=== PATIENT | male | born 1960 | race Two or more races ===

== ENCOUNTER 2016-07-19 23:43 | Inpatient (IN) | payer MEDICAID ==
[2016-07-20] MEDS ORDERED: HYDROmorphONE/DILAUDID 1 MG/ML SYR IVP ONE (00:03)
[2016-07-20] MEDS ORDERED: NS 1,000 ML IV ONE ×2 (00:03→17:57)
[2016-07-20] MEDS ORDERED: ONDANSETRON 4 MG/2 ML VIAL IVP ONE (00:03)
--- NOTE | 2016-07-20 00:13 | EDPHY ---
H & P Stated Complaint: chest/esophagus/epigastric pain x 5-6 days, seen at [facility] today Time Seen by Provider: 07/19/16 23:59 HPI/ROS: CHIEF COMPLAINT: Abdominal pain HISTORY OF PRESENT ILLNESS: The patient is a 55-year-old homeless alcoholic man who comes to the emergency department complaining of epigastric pain that radiates to his chest. He states that he has had this for about 5 days and been to other hospitals without diagnosis. He was seen earlier at [facility] today and diagnosed with intoxication. He denies fevers. He denies chest pain or shortness of breath. He denies any urinary symptoms. He has vomited 4 times today nonbloody. No diarrhea. REVIEW OF SYSTEMS: Constitutional: denies: chills, fever, recent illness, recent injury EENTM: denies: blurred vision, double vision, nose congestion Respiratory: denies: cough, shortness of breath Cardiac: See HPI Gastrointestinal/Abdominal: See HPI Genitourinary: denies: dysuria, frequency, hematuria, pain Musculoskeletal: denies: joint pain, muscle pain Skin: denies: lesions, rash, jaundice, bruising Neurological: denies: headache, numbness, paresthesia, tingling, dizziness, weakness Hematologic/Lymphatic: denies: blood clots, easy bleeding, easy bruising Immunologic/allergic: denies: HIV/AIDS, transplant EXAM: GENERAL: Well-appearing, well-nourished and in no acute distress. HEAD: Atraumatic, normocephalic. EYES: Pupils equal round and reactive to light, extraocular movements intact, sclera anicteric, conjunctiva are normal. ENT: TMs normal, nares patent, oropharynx clear without exudates. Moist mucous membranes. NECK: Normal range of motion, supple without lymphadenopathy or JVD. LUNGS: Breath sounds clear to auscultation bilaterally and equal. No wheezes rales or rhonchi. HEART: Regular rate and rhythm without murmurs, rubs or gallops. ABDOMEN: Soft, nontender, normoactive bowel sounds. No guarding, no rebound. No masses appreciated. BACK: No CVA tenderness, no spinal tenderness, step-offs or deformities EXTREMITIES: Normal range of motion, no pitting or edema. No clubbing or cyanosis. NEUROLOGICAL: Cranial nerves II through XII grossly intact. Normal speech, normal gait. 5/5 strength, normal movement in all extremities, normal sensation PSYCH: Normal mood, normal affect. SKIN: Warm, dry, normal turgor, no visible rashes or lesions. Source: Patient, EMS, Old records Exam Limitations: Intoxication - Personal History Current Tetanus/Diphtheria Vaccine: Yes Tetanus Vaccine Date: 2012 - Medical/Surgical History Hx Asthma: No Hx Chronic Respiratory Disease: No Hx Diabetes: No Hx Cardiac Disease: No Hx Renal Disease: No Hx Cirrhosis: Yes Hx Alcoholism: Yes Hx HIV/AIDS: No Hx Splenectomy or Spleen Trauma: No Other PMH: PMH: CAD, etoh abuse, cirrhosis, pancreatitis, gastritis. PSH: none - Family History Significant Family History: Hypertension - Social History Smoking Status: Heavy smoker Alcohol Use: Sober Drug Use: None Constitutional: Initial Vital Signs Heart Rate 106 H 07/19/16 23:58 Respiratory Rate 16 07/19/16 23:58 Blood Pressure 153/102 H 07/19/16 23:58 O2 Sat (%) 94 07/19/16 23:58 O2 Delivery Mode Room Air O2 (L/minute) 2 Allergies/Adverse Reactions: No Allergies Allergy (Unknown, Verified 12/25/15 01:53) Home Medications: Medication Instructions Recorded Acetaminophen [Tylenol 325mg (*)] 325 mg PO DAILY PRN 04/07/14 Ferrous Sulfate [Iron] 325 mg PO DAILY #0 capsule.sa 04/10/14 Pantoprazole Sodium [Protonix 40mg 40 mg PO BID #60 tab 04/10/14 (*)] Medical Decision Making - Diagnostics EKG Interpretation: An EKG obtained and was read and documented in trace view. Please see trace view for full reading and report. Sinus rhythm, no acute ischemic changes Imaging: Results: CT scan of the abdomen was obtained. The results of the study are lower esophageal cancer. The study was read by Dr. Ruiz. I viewed the images myself on the PACS system. ED Course/Re-evaluation: We discussed the patient's CT results with the warehouse worker 2nd shift. He was not aware of the cancer. He did have a biopsy 3 years ago that did not show cancers lesions at that time. I spoke with the patient about what this means and continued care. I do not have confident that he will be able to manage this himself. He is homeless and does not have a telephone. I do not think that he will be able to follow up in the outpatient setting for further workup and treatment. Offered admission to the hospital in the agrees with this. 2:50 a.m. I discussed the case with Dr. Zuleyka Sykes who will admit to the hospital service. Patient is currently tolerating p.o. fluids. Differential Diagnosis: Partial list of the Differential diagnosis considered include but were not limited to; esophagitis, peptic ulcer disease, pancreatitis, biliary disease , alcoholism, gastritis, and although unlikely based on the history and physical exam, I also considered pancreatitis, pneumonia, acute coronary disease. - Data Points Laboratory Results: Laboratory Results 07/20/16 00:27 07/20/16 01:20 07/20/16 07/20/16 01:20 00:27 WBC 4.75 10^3/uL (3.80-9.50) RBC 5.83 10^6/uL (4.40-6.38) Hgb 12.9 L g/dL (13.7-17.5) Hct 42.2 % (40.0-51.0) MCV 72.4 L fL (81.5-99.8) MCH 22.1 L pg (27.9-34.1) MCHC 30.6 L g/dL (32.4-36.7) RDW 23.6 H % (11.5-15.2) Plt Count 298 10^3/uL (150-400) MPV 10.0 fL (8.7-11.7) Neut % (Auto) 64.0 % (39.3-74.2) Lymph % (Auto) 24.6 % (15.0-45.0) [place] % (Auto) 6.5 % (4.5-13.0) Eos % (Auto) 3.2 % (0.6-7.6) Baso % (Auto) 1.5 % (0.3-1.7) Nucleat RBC Rel Count 0.0 % (0.0-0.2) Absolute Neuts (auto) 3.04 10^3/uL (1.70-6.50) Absolute Lymphs (auto) 1.17 10^3/uL (1.00-3.00) Absolute Monos (auto) 0.31 10^3/uL (0.30-0.80) Absolute Eos (auto) 0.15 10^3/uL (0.03-0.40) Absolute Basos (auto) 0.07 10^3/uL (0.02-0.10) Absolute Nucleated RBC 0.00 10^3/uL (0-0.01) Immature Gran % 0.2 % (0.0-1.1) Immature Gran # 0.01 10^3/uL (0.00-0.10) Platelet Estimate ADEQUATE (ADEQ) Large Platelets PRESENT H Hypochromasia 1+ H Microcytic Cells 1+ H Turbidity TNP Sodium 152 H mEq/L TNP (134-144) Potassium 3.6 mEq/L TNP (3.5-5.2) Chloride 111 H mEq/L TNP (97-110) Carbon Dioxide 27 mEq/l TNP (22-31) Anion Gap 14 mEq/L TNP (8-16) BUN 4 L mg/dL TNP (7-23) Creatinine 0.5 L mg/dL TNP (0.7-1.3) Estimated GFR > 60 TNP Glucose 101 H mg/dL TNP (70-100) Calcium 7.3 L mg/dL TNP (8.5-10.4) Total Bilirubin 0.2 mg/dL TNP (0.1-1.4) Conjugated Bilirubin 0.1 mg/dL TNP (0.0-0.5) Unconjugated Bilirubin 0.1 mg/dL TNP (0.0-1.1) AST 33 IU/L TNP (17-59) ALT 26 IU/L TNP (21-72) Alkaline Phosphatase 86 IU/L TNP (38-126) Total Protein 6.2 L g/dL TNP (6.3-8.2) Albumin 3.2 L g/dL TNP (3.5-5.0) Lipase 345.0 H IU/L TNP (23-300) Specimen Hemolysis TNP Medications Given: Discontinued Medications Hydromorphone HCl (Dilaudid) 1 mg IVP EDNOW ONE Stop: 07/20/16 00:04 Last Admin: 07/20/16 00:30 Dose: 1 mg Sodium Chloride (Ns) 1,000 mls @ 0 mls/hr IV ONCE ONE PRN Reason: Wide Open Stop: 07/20/16 00:04 Last Admin: 07/20/16 00:29 Dose: 1,000 mls Famotidine/Sodium Chloride (Pepcid 20 Mg (Premix)) 50 mls @ 200 mls/hr IV EDNOW ONE Stop: 07/20/16 03:47 Last Admin: 07/20/16 03:41 Dose: 50 mls Ondansetron HCl (Zofran) 4 mg IVP EDNOW ONE Stop: 07/20/16 00:04 Last Admin: 07/20/16 00:30 Dose: 4 mg Ranitidine HCl (Zantac) 50 mg IVP EDNOW ONE Stop: 07/20/16 02:48 Last Admin: 07/20/16 03:22 Dose: Not Given Departure - Departure Disposition: [facility] Acute Clinical Impression: Esophageal cancer Qualifiers: Malignant neoplasm of esophagus location: lower third Qualifier Code: (C15.5) Malignant neoplasm of lower third of esophagus Condition: Fair
[2016-07-20 00:36] LABS: % IMMATURE GRANULYOCYTES 0.2 % (0.0-1.1); ABSOLUTE IMMATURE GRANULOCYTES 0.01 10^3/uL (0.00-0.10); ADD DIFF? NO; ADD MORPH? YES; ADD SCAN? NO; ATYPICAL LYMPHOCYTE FLAG 0 (0-99); FRAGMENT RBC FLAG 40 (0-99); HEMATOCRIT 42.2 % (40.0-51.0); HEMOGLOBIN 12.9 g/dL (13.7-17.5); LEFT SHIFT FLG 0 (0-99); LIPEMIA HEMOLYSIS FLAG 80 (0-99); MEAN CELL HEMOGLOBIN 22.1 pg (27.9-34.1); MEAN CELL HEMOGLOBIN CONCENTR. 30.6 g/dL (32.4-36.7); MEAN CELL VOLUME 72.4 fL (81.5-99.8); PLATELET CLUMPS FLAG 40 (0-99); PLATELET COUNT 298 10^3/uL (150-400); RED BLOOD CELL COUNT 5.83 10^6/uL (4.40-6.38)
[2016-07-20] MEDS ORDERED: IOPAMIDOL (ISOVUE-300) 100 ML BTL IV ONE (00:42)
[2016-07-20 00:43] LABS: RED CELL DISTRIBUTION WIDTH 23.6 % (11.5-15.2)
[2016-07-20 01:11] LABS: PLATELET ESTIMATE ADEQUATE (ADEQ)
[2016-07-20 01:13] LABS: HYPOCHROMIA 1+; LARGE PLATELETS PRESENT; MICROCYTES 1+
[2016-07-20 01:43] LABS: ALANINE AMINOTRANSFERASE 26 IU/L (21-72); ALBUMIN 3.2 g/dL (3.5-5.0); ALKALINE PHOSPHATASE 86 IU/L (38-126); ANION GAP 14 mEq/L (8-16); ASPARTATE AMINOTRANSFERASE 33 IU/L (17-59); BILIRUBIN,TOTAL 0.2 mg/dL (0.1-1.4); BILIRUBIN-CONJUGATED 0.1 mg/dL (0.0-0.5); BILIRUBIN-UNCONJUGATED 0.1 mg/dL (0.0-1.1); CALCIUM 7.3 mg/dL (8.5-10.4); CARBON DIOXIDE 27 mEq/l (22-31); CHLORIDE 111 mEq/L (97-110); CREATININE 0.5 mg/dL (0.7-1.3); GLOMERULAR FILTRATION RATE > 60; GLUCOSE 101 mg/dL (70-100); POTASSIUM 3.6 mEq/L (3.5-5.2); SODIUM 152 mEq/L (134-144); TOTAL PROTEIN 6.2 g/dL (6.3-8.2)
--- NOTE | 2016-07-20 02:27 | CPEKG ---
Heart Rate: 90 RR Interval: 667 P-R Interval: 148 QRSD Interval: 76 QT Interval: 364 QTC Interval: 446 P [place]: 51 QRS [place]: 20 T Wave [place]: 44 EKG Severity - NORMAL ECG - EKG Impression: SINUS RHYTHM Electronically Signed By: Cornell Zhao 20-Jul-2016 02:28:04
[2016-07-20] MEDS ORDERED: RANITIDINE 50 MG/2 ML VIAL IVP ONE (02:47)
[2016-07-20] MEDS ORDERED: FAMOTIDINE 20 MG/NACL/50 ML BAG IV ONE (03:33)
[2016-07-20] MEDS ORDERED: FAMOTIDINE 20 MG/NACL 50 ML IV ONE (03:33)
[2016-07-20] MEDS ORDERED: D5W 1,000 ML IV SCH (03:45)
[2016-07-20] MEDS ORDERED: LORazepam 1 MG TAB PO PRN (03:45)
[2016-07-20] MEDS ORDERED: ONDANSETRON 4 MG/2 ML VIAL IVP PRN (03:45)
[2016-07-20] MEDS ORDERED: LORazepam 2 MG/ML INJ IVP PRN (03:45)
[2016-07-20] MEDS ORDERED: THIAMINE HCL 500 MG in NS 100 ML IV ONE (03:45)
--- NOTE | 2016-07-20 04:15 | PDGENHP ---
History and Physical - Chief Complaint epigastric pain - History of Present Illness 55 yo luxembourgish speaking male with h/o alcohol dependence, cirrhosis, hypertension and CAD presents to ED with epigastric pain x4-5 days. This is associated with vomiting. He denies hematemesis, hematochezia or melanotic stools. He drinks a pint a day of whiskey. He states his last drink was 2-3 days ago, but per chart review, he was apparently acutely intoxicated at [facility] earlier today. He denies a known h/o seizure, but describes passing out on the street some time ago. He denies fevers or chills. He is able to tolerate po, but has had post-prandial vomiting over past several days. He reports normal bowel movements. In the ED, CT abdomen was done and findings are suspicious for esophageal malignancy. He is homeless and is a poor candidate for outpatient follow up, thus is admitted for further management. History Information - Allergies/Home Medication List Allergies/Adverse Reactions: No Allergies Allergy (Unknown, Verified 12/25/15 01:53) Home Medications: Acetaminophen [Tylenol 325mg (*)] 325 mg PO DAILY PRN 04/07/14 [Last Taken Unknown] I have personally reviewed and updated: family history, medical history, social history, surgical history - Past Medical History coronary artery disease, hypertension Additional medical history: alcohol abuse, cirrhosis - Surgical History Reports: no pertinent surgical hx - Family History Positive for: CAD - Social History Smoking Status: Heavy smoker Alcohol Use: Heavy Drug Use: None (Homeless, drinks a pint of whiskey daily, +tobacco abuse, denies illicit drugs) Review of Systems ROS: 10pt was reviewed & negative except for what was stated in HPI & below Physical Exam Temp Pulse Resp BP Pulse Ox 36.5 C 106 H 20 170/96 H 96 07/20/16 04:01 07/20/16 04:01 07/20/16 04:01 07/20/16 04:04 07/20/16 04:04 O2 (L/minute) 2 Constitutional: no apparent distress Eyes: PERRL Ears, Nose, Mouth, Throat: moist mucous membranes Cardiovascular: regular rate and rhythym Respiratory: no respiratory distress, clear to auscultation Gastrointestinal: normoactive bowel sounds, other (+epigastric tenderness, no r/ r/g) Skin: warm Musculoskeletal: full muscle strength Neurologic: AAOx3 Psychiatric: interacting appropriately Lab Data & Imaging Review 07/20/16 00:27 07/20/16 01:20 WBC 4.75 10^3/uL (3.80-9.50) 07/20/16 00: RBC 5.83 10^6/uL (4.40-6.38) 07/20/16 00: Hgb 12.9 g/dL (13.7-17.5) L 07/20/16: Hct 42.2 % (40.0-51.0) 07/20/16 00: MCV 72.4 fL (81.5-99.8) L 07/20/16 00: MCH 22.1 pg (27.9-34.1) L 07/20/16 00: MCHC 30.6 g/dL (32.4-36.7) L 07/20/16 00: RDW 23.6 % (11.5-15.2) H 07/20/16 00: Plt Count 298 10^3/uL (150-400) 07/20/16 00: MPV 10.0 fL (8.7-11.7) 07/20/16 00: Neut % (Auto) 64.0 % (39.3-74.2) 07/20/16: Lymph % (Auto) 24.6 % (15.0-45.0) 07/20/16 00: [place] % (Auto) 6.5 % (4.5-13.0) 07/20/16: Eos % (Auto) 3.2 % (0.6-7.6) 07/20/16 00: Baso % (Auto) 1.5 % (0.3-1.7) 07/20/16 00: Nucleat RBC Rel Count 0.0 % (0.0-0.2) 07/20/16 00: Absolute Neuts (auto) 3.04 10^3/uL (1.70-6.50) 07/20/16 00: Absolute Lymphs (auto) 1.17 10^3/uL (1.00-3.00) 07/20/16 00: Absolute Monos (auto) 0.31 10^3/uL (0.30-0.80) 07/20/16 00:27 Absolute Eos (auto) 0.15 10^3/uL (0.03-0.40) 07/20/16 00:27 Absolute Basos (auto) 0.07 10^3/uL (0.02-0.10) 07/20/16 00:27 Absolute Nucleated RBC 0.00 10^3/uL (0-0.01) 07/20/16 00:27 Immature Gran % 0.2 % (0.0-1.1) 07/20/16 00:27 Immature Gran # 0.01 10^3/uL (0.00-0.10) 07/20/16 00:27 Platelet Estimate ADEQUATE (ADEQ) 07/20/16 00:27 Large Platelets PRESENT H 07/20/16 00:27 Hypochromasia 1+ H 07/20/16 00:27 Microcytic Cells 1+ H 07/20/16 00:27 Turbidity TNP 07/20/16 00:27 Sodium 152 mEq/L (134-144) H 07/20/16 01:20 Potassium 3.6 mEq/L (3.5-5.2) 07/20/16 01:20 Chloride 111 mEq/L (97-110) H 07/20/16 01:20 Carbon Dioxide 27 mEq/l (22-31) 07/20/16 01:20 Anion Gap 14 mEq/L (8-16) 07/20/16 01:20 BUN 4 mg/dL (7-23) L 07/20/16 01:20 Creatinine 0.5 mg/dL (0.7-1.3) L 07/20/16 01:20 Estimated GFR > 60 07/20/16 01:20 Glucose 101 mg/dL (70-100) H 07/20/16 01:20 Calcium 7.3 mg/dL (8.5-10.4) L 07/20/16 01:20 Total Bilirubin 0.2 mg/dL (0.1-1.4) 07/20/16 01:20 Conjugated Bilirubin 0.1 mg/dL (0.0-0.5) 07/20/16 01:20 Unconjugated Bilirubin 0.1 mg/dL (0.0-1.1) 07/20/16 01:20 AST 33 IU/L (17-59) 07/20/16 01:20 ALT 26 IU/L (21-72) 07/20/16 01:20 Alkaline Phosphatase 86 IU/L (38-126) 07/20/16 01:20 Total Protein 6.2 g/dL (6.3-8.2) L 07/20/16 01:20 Albumin 3.2 g/dL (3.5-5.0) L 07/20/16 01:20 Lipase 345.0 IU/L (23-300) H 07/20/16 01:20 Specimen Hemolysis TNP 07/20/16 00:27 Assessment & Plan Assessment: Epigastric pain - CT imaging highly suspicious for esophageal malignancy. Will keep NPO for now, consult GI in am for possible EGD / biopsy. Will give IV PPI , pain control, anti-emetics, supportive care. Speech consult for swallow eval. May also need oncology consult. Hypernatremia - free water deficit is 4L. Will give D5W at 100 / hr and follow q4h bmp to ensure not correcting too rapidly. Alcohol dependence - unclear if he has a h/o seizures. Will start CIWA protocol , seizure precautions, symptom triggered bzd dosing. Check mag, phos, replace vits. Cirrhosis - per pt report. CT notes fatty liver. No significant ascites. Nl LFT's. Will request records from OSH for further clarification. CAD - per chart hx. CP free at this time. Hypertension - will start metoprolol given CAD hx Tobacco abuse - cessation encouraged Homelessness - will make outpt f/u difficult to coordinate. Case management consult requested. DVT PPLX - Lovenox Full code Dispo - will likely require >48 hrs hospitalization for further workup and management of suspected GI malignancy
[2016-07-20] MEDS ORDERED: hydrALAZINE 20 MG/ML VIAL IVP PRN (04:28)
[2016-07-20] MEDS: ACETAMINOPHEN 325 MG TAB PO PRN (04:35)
[2016-07-20] MEDS: METOPROLOL TARTRATE 25 MG TAB PO SCH ×3 (04:36→21:44)
[2016-07-20 05:50] LABS: % IMMATURE GRANULYOCYTES 0.4 % (0.0-1.1); ABSOLUTE IMMATURE GRANULOCYTES 0.02 10^3/uL (0.00-0.10); ADD DIFF? NO; ADD MORPH? YES; ADD SCAN? NO; ATYPICAL LYMPHOCYTE FLAG 20 (0-99); FRAGMENT RBC FLAG 20 (0-99); HEMOGLOBIN 10.1 g/dL (13.7-17.5); LEFT SHIFT FLG 0 (0-99); LIPEMIA HEMOLYSIS FLAG 80 (0-99); MEAN CELL HEMOGLOBIN 22.5 pg (27.9-34.1); MEAN CELL HEMOGLOBIN CONCENTR. 30.6 g/dL (32.4-36.7); MEAN CELL VOLUME 73.5 fL (81.5-99.8); MEAN PLATELET VOLUME 9.6 fL (8.7-11.7); PLATELET CLUMPS FLAG 0 (0-99); PLATELET COUNT 224 10^3/uL (150-400); RED BLOOD CELL COUNT 4.49 10^6/uL (4.40-6.38); RED CELL DISTRIBUTION WIDTH 22.6 % (11.5-15.2)
[2016-07-20 06:01] LABS: INR 1.22 (0.83-1.16); PROTIME(PATIENT) 15.4 SEC (12.0-15.0)
[2016-07-20 06:06] LABS: HYPOCHROMIA 1+; MICROCYTES 1+; PLATELET ESTIMATE ADEQUATE (ADEQ)
[2016-07-20 06:11] LABS: ANION GAP 13 mEq/L (8-16); CALCIUM 7.1 mg/dL (8.5-10.4); CARBON DIOXIDE 24 mEq/l (22-31); CHLORIDE 111 mEq/L (97-110); CREATININE 0.5 mg/dL (0.7-1.3); ETHANOL SERUM 230 mg/dL (0-10); GLOMERULAR FILTRATION RATE > 60; GLUCOSE 98 mg/dL (70-100); MAGNESIUM 1.6 mg/dL (1.6-2.3); POTASSIUM 3.7 mEq/L (3.5-5.2); SODIUM 148 mEq/L (134-144)
[2016-07-20] MEDS ORDERED: FLU VACC QS 2016-17(3-64YR)/PF 0.5 ML SYR (FLUARIX QUAD) IM ONE (08:25)
[2016-07-20] MEDS: PANTOPRAZOLE SODIUM 40 MG in NS 100 ML IV SCH ×2 (08:26→21:44)
[2016-07-20 11:24] LABS: ANION GAP 11 mEq/L (8-16); CALCIUM 7.2 mg/dL (8.5-10.4); CARBON DIOXIDE 26 mEq/l (22-31); CHLORIDE 109 mEq/L (97-110); CREATININE 0.5 mg/dL (0.7-1.3); GLOMERULAR FILTRATION RATE > 60; GLUCOSE 84 mg/dL (70-100); POTASSIUM 3.7 mEq/L (3.5-5.2); SODIUM 146 mEq/L (134-144)
[2016-07-20] MEDS: HYDROmorphONE/DILAUDID 1 MG/ML SYR IVP PRN (11:28)
--- NOTE | 2016-07-20 11:48 | CT ---
CT Abdomen and Pelvis With Contrast History: 55-year-old with epigastric pain, EtOH. Comparison: CT abdomen and pelvis October 06, 2015. Technique: Axial contrast-enhanced images were obtained through the abdomen and pelvis following the uneventful administration of 90 mL Isovue-300 intravenous contrast. Imaging through the upper abdomen was repeated due to motion. Creatinine is 0.5. Dose reduction techniques were utilized. Findings: Abdomen: A 3 mm noncalcified right middle lobe nodule (series 6, image 40) and a 3 mm lingular nodule (image 24) are unchanged. Ectasia of the ascending aorta is noted. Coronary artery atherosclerosis i s present. Diffuse fatty infiltration is present in the liver. The gallbladder, spleen, pancreas, adrenals and k idneys are normal. Extensive irregular thickening of the distal esophagus is slightly increased since the comparison. Th ere is trace fluid adjacent to the thickened esophagus. Scattered mildly prominent paraesophageal lym ph nodes are new/increased since the comparison. A moderate hiatal hernia is present. Moderate stool is present in the colon. The colon and small bowel are normal caliber. The appendix is normal. There is no free intraperitoneal air or fluid. Moderate atherosclerosis is present in a normal caliber aorta. The IVC, hepatic, portal, splenic, and superior mesenteric veins are patent. Grade 1 spondylolytic spondylosis of L5 on S1 is stable. No aggressive osseous lesions are present. Pelvis: The bladder is distended but otherwise normal. The prostate is normal size. No pathologically enlarged lymph nodes are identified. Mild atherosclerosis is present. No aggressive osseous lesions are present. Impression: 1. Increased irregular thickening of the distal esophagus highly suspicious for malignancy with adjac ent subcentimeter nodes that could be related to regional metastases. 2. Trace fluid adjacent to the distal esophagus, with no free air, of uncertain clinical significance . 3. Fatty liver. 4. Constipation. 5. Additional findings as above. Findings discussed with Dr. Cornell Zhao 07/20/2016 at 0230 hours. The preliminary and final reports were concordant.
[2016-07-20 12:15] LABS: COLOR YELLOW; LEUKOCYTE ESTERASE,URINE NEGATIVE (NEGATIVE); NITRITE,URINE NEGATIVE (NEGATIVE)
[2016-07-20 12:25] LABS: BACTERIA NONE SEEN /hpf (NONE SEEN); MUCUS NONE SEEN /lpf (NONE-1+)
[2016-07-20] MEDS ORDERED: IPRATROPIUM/ALBUTEROL 3 ML DEYVIAL ONE (13:10)
[2016-07-20] MEDS ORDERED: fentaNYL 100 MCG/2 ML INJ ONE (13:19)
[2016-07-20] MEDS ORDERED: PROPOFOL/EMULSION 500 MG/50 ML BOTTLE IV ONE (13:19)
--- NOTE | 2016-07-20 13:27 | GCON ---
[f rep st] CONSULTATION DATE OF CONSULTATION: 07/20/2016 CHIEF COMPLAINT: Abdominal pain. HISTORY OF PRESENT ILLNESS: I am asked to see this patient in consultation by Dr. Sykes for a chief complaint of abdominal pain and an abnormal CT scan. Patient is a 55-year-old, [place]bourgish speaking only. History is obtained with an riding instructor and to the chart. Patient states he has had 4-5 days of epigastric abdominal pain associated with a couple episodes of vomiting, but notes there was no blood in his stools, no melena, or black coffee-grounds in his vomit, but because of abdominal pain a CT scan was obtained that shows thickening of the distal esophagus concerning for a possible tumor. The patient has a long history of alcohol, for which he drinks daily. He states he has never had a history of liver disease or hepatitis. He does take a daily aspirin when he is able to obtain it. He states he has had an upper endoscopy a few years back, he believes because of bleeding, but states that he is not sure what the source was, nor aware of ever having a history of varices or ulcers. Recently he has had no red blood stools or melenic stools, but it is unclear from his history. The patient states his epigastric pain is better this morning, and no vomiting since yesterday. ALLERGIES: No known allergies. CURRENT MEDICATIONS: Tylenol and aspirin. PAST MEDICAL HISTORY: Significant for alcohol abuse. The patient is a poor historian, but per the chart there is a history of hypertension, coronary artery disease, and alcoholic liver disease. SOCIAL HISTORY: Alcohol abuse. FAMILY HISTORY: Notable for coronary artery disease. REVIEW OF SYSTEMS: Review of 10 systems including general, psych, HEENT, cardiovascular, pulmonary, renal, hematologic, musculoskeletal, derm and neurologic are discussed and otherwise negative, but again patient is a poor historian, except for above. PHYSICAL EXAM: VITAL SIGNS: Afebrile at 37.1, blood pressure 134/86, pulse 84. HEENT: PERRLA, EOMI. Nose clear. Oropharynx is normal. NECK: Supple without lymphadenopathy, no thyromegaly. CARDIAC: Regular rate and rhythm, S1 and S2 normal, no murmur detected. PMI normal in location. CHEST: Clear to auscultation bilaterally, normal chest excursion. ABDOMEN: Soft, mild hepatomegaly, no obvious ascites. Soft, mild tenderness to palpation in the epigastric area. There is no obvious spider angiomata. EXTREMITIES: Normal. NEUROLOGIC: Grossly nonfocal, without obvious asterixis. LABORATORY DATA: Shows a BUN and creatinine of 4 and 0.5, ProTime is 15.4 with an INR of 1.22. White count is 5, hematocrit 33, platelets 224. AST 26, ALT 33 , total bilirubin 0.2. Lipase 345, albumin 3.2. CT scan of the abdomen shows irregular thickening of the distal esophagus, highly suspicious for malignancy with adjacent subcentimeter nodes that could be related to regional metastasis, trace adjacent fluid in the distal esophagus but no free air, fatty liver, constipation. I reviewed the CT scan with the radiologist, who could not definitively identify enlarged portal vein or evidence of varices. ASSESSMENT: 1. Epigastric abdominal pain. 2. Abnormal CT scan of the esophagus, concerning for possible mass versus esophagitis. Radiologic appearance is not suggestive of varices. 3. Alcoholic liver disease, although without elevated liver function tests or ProTime at this time, or clinical evidence of underlying cirrhosis. PLAN: Given pain and abnormal CT scan findings, would recommend upper endoscopy for evaluation and careful biopsy, providing no visual evidence of varices as guided by endoscopic findings. Recommend alcohol cessation and monitoring for withdrawal. /[id number]/MODL MTDD
--- NOTE | 2016-07-20 13:36 | SUROPNOTE ---
[facility] Operative Report - Surgery EGD with MAC Full note dictated Findings severe grade D esophagitis GE junction stricture with inflammatory appearance, biopsied Stomach with portal gastropathy Kyle normal Plan: PPI BID Advance diet to soft as tolerated Await path If no malignancy then recommend repeat EGD in 8 weeks post therapy for dilation and r/o underlying Carrero's Call with questions
[2016-07-20] MEDS ORDERED: HYDROmorphONE/DILAUDID 1 MG/ML SYR ONE (13:56)
[2016-07-20] MEDS ORDERED: IPRATROPIUM/ALBUTEROL 3 ML DEYVIAL IH ONE (14:00)
--- NOTE | 2016-07-20 14:18 | GPN ---
[f rep st] PROCEDURE NOTE DATE OF PROCEDURE: 07/20/2016 PROCEDURE PERFORMED: Upper endoscopy with biopsy. INDICATIONS: Epigastric pain. Abnormal CT scan showing possible mass in distal esophagus. Referred for upper endoscopy. Prior to procedure, exam was performed, including auscultation of the heart lungs, within normal limi ts. Patient's mental status was appropriate. Procedure was explained via the machine lead burner, including the risks of bleeding, perforation, or sedation. He gave an informed consent. FINDINGS: Patient was placed in the left lateral decubitus position. Medicines given by slow IV tit ration per the anesthesiologist. Instrument was inserted through the bite block in the esophagus, wh ich was remarkable for severe grade D erosive esophagitis from the GE junction to the midesophagus. At the GE junction, there was a stricture identified that was inflammatory in appearance. No obvious varices were seen in this area. Scope could pass through this area into a small hiatal hernia and t hen into the stomach, remarkable for a diffuse portal gastropathy, more prominent proximally. No ulc ers. Scope was then passed. The duodenal was normal. The scope was then returned back to the area of the stricture, which was biopsied with minimal oozing. Scope was removed from the patient, who to lerated the procedure well. Time of the procedure was approximately 10 minutes. ASSESSMENT: 1. Severe grade D erosive esophagitis to the distal third of the esophagus. 2. 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 This was biopsied, although suspect that it will be predominantly inflammatory. 3. Stomach with portal gastropathy. 4. Normal duodenum. PLAN: 1. Recommend proton pump inhibitor twice daily for at least the next 8-12 weeks. 2. May advance diet, although patient to chew foods carefully. 3. Will await path results. If no evidence of malignancy, then I would recommend repeat upper endos copy in 8 weeks post therapy to assess for underlying Carrero's and potential stricture dilation. Thank you for this consult. /[id number]/MODL
[2016-07-20] MEDS: ENOXAPARIN 40 MG/0.4 ML SYR SC SCH (15:29)
[2016-07-20] MEDS ORDERED: 1/2 NS 1,000 ML IV SCH (15:30)
--- NOTE | 2016-07-20 15:33 | HOSPPROG ---
Hospitalist Progress Note Assessment/Plan: #ETOH WD-ON CIWA -WILL SCHEDULE ATIVAN WELL #EPIGASTRIC PAIN, GASTRITIS, ESOPHAGITIS, CT CONCERNING FOR ESOPHAGEAL MALIGNANCY -PPI BID -WILL NEED 8-12 PPI BID -ENDOSCOPY C/W ESOPHAGEAL INFLAMMATION, BIOPSIES OBTAINED -F/U BIOPSIES, IF NO MALIGNANCY, THEN REPEAT ENDOSCOPY IN 8 WEEKS #HYPERNATREMIA: IMPROVING. CHANGE TO 1/2 NS #CIRRHOSIS, PER HX. NO EVIDENCE OF IMAGING OR LABS. NO COAGULOPATHY #HTN: ON METOPROLOL. WORSE 2 TO ETOH WD #CAD: ON METOPROLOL #DVT PROPH: LOVENOX (HOLD TODAY), SCD'S Full code Dispo - INPATIENT S: active ETOH WD. No confusion. Still with some abd pain. No n/v. O: VSS NAD TREMULOUS AAOX3 RRR CTA B S/NT/ND NO EDEMA LABS: REVIEWED Objective: Vital Signs Temp Pulse Resp BP Pulse Ox 36.9 C 72 12 141/95 H 93 07/20/16 14:16 07/20/16 14:35 07/20/16 14:35 07/20/16 14:16 07/20/16 14:35 Laboratory Results 07/20/16 05:40 07/19/16 07/20/16 07/21/16 05:59 05:59 05:59 Intake Total 1050 Balance 1050 PT 15.4 SEC (12.0-15.0) H 07/20/16 05:40 INR 1.22 (0.83-1.16) H 07/20/16 05:40 ICD10 Worksheet Patient Problems: Problems Problem Status Diagnosed Esophageal cancer Acute Alcohol withdrawal delirium Active Alcohol abuse Acute Alcohol withdrawal Acute Headache Acute
[2016-07-20] MEDS: LORazepam 2 MG/ML INJ IVP SCH ×3 (15:41→21:44)
[2016-07-20 15:53] LABS: ANION GAP 12 mEq/L (8-16); CALCIUM 7.9 mg/dL (8.5-10.4); CARBON DIOXIDE 26 mEq/l (22-31); CHLORIDE 106 mEq/L (97-110); CREATININE 0.6 mg/dL (0.7-1.3); GLOMERULAR FILTRATION RATE > 60; GLUCOSE 126 mg/dL (70-100); POTASSIUM 4.1 mEq/L (3.5-5.2); SODIUM 144 mEq/L (134-144)
--- NOTE | 2016-07-20 18:08 | CPEKG ---
Heart Rate: 119 RR Interval: 504 P-R Interval: 124 QRSD Interval: 76 QT Interval: 312 QTC Interval: 439 P [place]: 44 QRS [place]: 21 T Wave [place]: 37 EKG Severity - OTHERWISE NORMAL ECG - EKG Impression: SINUS TACHYCARDIA EKG Impression: INFERIOR Q WAVES NOTED BASELINE ARTIFACT IS PRESENT IN II AND III Electronically Signed By: Adriel Kay 20-Jul-2016 19:16:21
[2016-07-20] MEDS: NS 1,000 ML IV SCH ×2 (18:21→21:44)
[2016-07-20 18:39] LABS: % IMMATURE GRANULYOCYTES 0.6 % (0.0-1.1); ABSOLUTE IMMATURE GRANULOCYTES 0.03 10^3/uL (0.00-0.10); ADD DIFF? NO; ADD MORPH? YES; ADD SCAN? NO; ATYPICAL LYMPHOCYTE FLAG 20 (0-99); FRAGMENT RBC FLAG 20 (0-99); HEMATOCRIT 31.3 % (40.0-51.0); HEMOGLOBIN 9.8 g/dL (13.7-17.5); LEFT SHIFT FLG 0 (0-99); LIPEMIA HEMOLYSIS FLAG 80 (0-99); MEAN CELL HEMOGLOBIN 22.7 pg (27.9-34.1); MEAN CELL HEMOGLOBIN CONCENTR. 31.3 g/dL (32.4-36.7); MEAN CELL VOLUME 72.6 fL (81.5-99.8); MEAN PLATELET VOLUME 10.2 fL (8.7-11.7); PLATELET CLUMPS FLAG 10 (0-99); PLATELET COUNT 196 10^3/uL (150-400); RED BLOOD CELL COUNT 4.31 10^6/uL (4.40-6.38)
[2016-07-20 18:44] LABS: RED CELL DISTRIBUTION WIDTH 22.3 % (11.5-15.2)
[2016-07-20 18:54] LABS: ANION GAP 11 mEq/L (8-16); CALCIUM 7.8 mg/dL (8.5-10.4); CARBON DIOXIDE 25 mEq/l (22-31); CHLORIDE 102 mEq/L (97-110); CREATININE 0.6 mg/dL (0.7-1.3); GLOMERULAR FILTRATION RATE > 60; GLUCOSE 136 mg/dL (70-100); POTASSIUM 3.8 mEq/L (3.5-5.2); SODIUM 138 mEq/L (134-144)
[2016-07-20 19:05] LABS: TROPONIN I < 0.012 ng/mL (0-0.034)
[2016-07-20 19:07] LABS: ELLIPTOCYTES 1+; HYPOCHROMIA 2+; MICROCYTES 2+; PLATELET ESTIMATE ADEQUATE (ADEQ)
[2016-07-21] MEDS: LORazepam 2 MG/ML INJ IVP SCH ×5 (01:37→21:32)
[2016-07-21 05:25] LABS: % IMMATURE GRANULYOCYTES 0.5 % (0.0-1.1); ABSOLUTE IMMATURE GRANULOCYTES 0.03 10^3/uL (0.00-0.10); ADD DIFF? NO; ADD MORPH? YES; ADD SCAN? NO; ATYPICAL LYMPHOCYTE FLAG 10 (0-99); FRAGMENT RBC FLAG 20 (0-99); HEMATOCRIT 30.4 % (40.0-51.0); HEMOGLOBIN 9.5 g/dL (13.7-17.5); LEFT SHIFT FLG 0 (0-99); LIPEMIA HEMOLYSIS FLAG 80 (0-99); MEAN CELL HEMOGLOBIN 22.8 pg (27.9-34.1); MEAN CELL HEMOGLOBIN CONCENTR. 31.3 g/dL (32.4-36.7); MEAN CELL VOLUME 73.1 fL (81.5-99.8); PLATELET CLUMPS FLAG 0 (0-99); PLATELET COUNT 163 10^3/uL (150-400); RED BLOOD CELL COUNT 4.16 10^6/uL (4.40-6.38)
[2016-07-21 05:43] LABS: RED CELL DISTRIBUTION WIDTH 22.3 % (11.5-15.2)
[2016-07-21 06:51] LABS: ELLIPTOCYTES 1+; HYPOCHROMIA 1+; MICROCYTES 1+; PLATELET ESTIMATE ADEQUATE (ADEQ)
[2016-07-21 06:53] LABS: LARGE PLATELETS PRESENT
[2016-07-21] MEDS: PANTOPRAZOLE SODIUM 40 MG in NS 100 ML IV SCH ×2 (08:15→21:32)
[2016-07-21] MEDS: METOPROLOL TARTRATE 25 MG TAB PO SCH ×2 (08:16→21:31)
[2016-07-21] MEDS: NS 1,000 ML IV SCH (08:17)
[2016-07-21] MEDS: HYDROmorphONE/DILAUDID 1 MG/ML SYR IVP PRN ×2 (08:18→14:52)
[2016-07-21] MEDS: THIAMINE HCL 500 MG in NS 100 ML IV SCH (10:00)
[2016-07-21] MEDS: ENOXAPARIN 40 MG/0.4 ML SYR SC SCH (10:02)
[2016-07-21] MEDS ORDERED: FLU VACC QS 2016-17(3-64YR)/PF 0.5 ML SYR (FLUARIX QUAD) IM ONE (11:00)
[2016-07-21] MEDS: ACETAMINOPHEN 325 MG TAB PO PRN (12:48)
[2016-07-21] MEDS ORDERED: MAGNESIUM SULF 2 GM/WATER 50 ML IV ONE (13:30)
--- NOTE | 2016-07-21 13:52 | HOSPPROG ---
Hospitalist Progress Note Assessment/Plan: #ETOH WD-ON CIWA -DECREASE SCHEDULED TO Q8HR FROM Q4HRS -CONT WITH PRN, HAS NOT NEEDED AFTER SCHEDULING #EPIGASTRIC PAIN, GASTRITIS, ESOPHAGITIS, CT CONCERNING FOR ESOPHAGEAL MALIGNANCY -PPI BID -WILL NEED 8-12 WEEKS OF RX PPI BID -ENDOSCOPY C/W ESOPHAGEAL INFLAMMATION, BIOPSIES OBTAINED -F/U BIOPSIES, IF NO MALIGNANCY, THEN REPEAT ENDOSCOPY IN 8 WEEKS #HYPERNATREMIA: RESOLVED #CIRRHOSIS, PER HX. NO EVIDENCE OF IMAGING OR LABS. NO COAGULOPATHY #HTN: ON METOPROLOL. WORSE 2 TO ETOH WD #CAD: ON METOPROLOL #HYPOMAGNESEMIA: REPLACE #DVT PROPH: LOVENOX Full code Dispo - INPATIENT S: Still tremulous and with tachycardia. Overall feels better on scheduled Ativan. Mg is low. Still with some abd discomfort. Able to eat O: VSS NAD TREMULOUS AAOX3 RRR CTA B S/NT/ND NO EDEMA LABS: REVIEWED Objective: Vital Signs Temp Pulse Resp BP Pulse Ox 36.8 C 87 17 136/94 H 96 07/21/16 11:53 07/21/16 11:53 07/21/16 11:53 07/21/16 11:53 07/21/16 11:53 Laboratory Results 07/21/16 05:14 07/20/16 18:05 07/20/16 07/21/16 07/22/16 05:59 05:59 05:59 Intake Total 1875 1670 Output Total 1650 Balance 225 1670 PT 15.4 SEC (12.0-15.0) H 07/20/16 05:40 INR 1.22 (0.83-1.16) H 07/20/16 05:40 ICD10 Worksheet Patient Problems: Problems Problem Status Diagnosed Esophageal cancer Acute Alcohol withdrawal delirium Active Alcohol abuse Acute Alcohol withdrawal Acute Headache Acute
[2016-07-22] MEDS: HYDROmorphONE/DILAUDID 1 MG/ML SYR IVP PRN (00:14)
[2016-07-22] MEDS: ACETAMINOPHEN 325 MG TAB PO PRN (00:17)
[2016-07-22] MEDS: LORazepam 2 MG/ML INJ IVP SCH (05:14)
[2016-07-22 05:42] LABS: % IMMATURE GRANULYOCYTES 0.5 % (0.0-1.1); ABSOLUTE IMMATURE GRANULOCYTES 0.03 10^3/uL (0.00-0.10); ADD DIFF? NO; ADD MORPH? YES; ADD SCAN? NO; ATYPICAL LYMPHOCYTE FLAG 30 (0-99); FRAGMENT RBC FLAG 20 (0-99); HEMATOCRIT 34.7 % (40.0-51.0); HEMOGLOBIN 10.9 g/dL (13.7-17.5); LEFT SHIFT FLG 0 (0-99); LIPEMIA HEMOLYSIS FLAG 80 (0-99); MEAN CELL HEMOGLOBIN 22.9 pg (27.9-34.1); MEAN CELL HEMOGLOBIN CONCENTR. 31.4 g/dL (32.4-36.7); MEAN CELL VOLUME 72.7 fL (81.5-99.8); MEAN PLATELET VOLUME 10.5 fL (8.7-11.7); PLATELET CLUMPS FLAG 0 (0-99); PLATELET COUNT 174 10^3/uL (150-400); RED BLOOD CELL COUNT 4.77 10^6/uL (4.40-6.38)
[2016-07-22 05:51] LABS: RED CELL DISTRIBUTION WIDTH 22.5 % (11.5-15.2)
[2016-07-22 06:02] LABS: ANION GAP 8 mEq/L (8-16); CALCIUM 8.2 mg/dL (8.5-10.4); CARBON DIOXIDE 22 mEq/l (22-31); CHLORIDE 105 mEq/L (97-110); CREATININE 0.5 mg/dL (0.7-1.3); GLOMERULAR FILTRATION RATE > 60; GLUCOSE 88 mg/dL (70-100); MAGNESIUM 1.7 mg/dL (1.6-2.3); SODIUM 135 mEq/L (134-144)
[2016-07-22 06:32] LABS: ELLIPTOCYTES 1+; HYPOCHROMIA 1+; LARGE PLATELETS PRESENT; MICROCYTES 1+; PLATELET ESTIMATE ADEQUATE (ADEQ)
[2016-07-22] MEDS: METOPROLOL TARTRATE 25 MG TAB PO SCH ×2 (08:39→20:00)
[2016-07-22] MEDS: ENOXAPARIN 40 MG/0.4 ML SYR SC SCH (08:40)
[2016-07-22] MEDS: THIAMINE HCL 500 MG in NS 100 ML IV SCH (08:41)
[2016-07-22] MEDS: PANTOPRAZOLE SODIUM 40 MG in NS 100 ML IV SCH (08:41)
[2016-07-22] MEDS: ONDANSETRON DISINTEGRATING 4 MG TAB PO PRN ×2 (16:32→22:09)
[2016-07-22] MEDS ORDERED: PROMETHAZINE HCL 25 MG TAB PO PRN (18:09)
[2016-07-22] MEDS ORDERED: CALCIUM CARBONATE 500 MG CHEWABLE TAB PO PRN (18:09)
[2016-07-22] MEDS ORDERED: MAALOX/LIDO/HYOSC GI COCKTAIL 55 ML BOTTLE PO PRN (18:09)
[2016-07-22] MEDS ORDERED: PROMETHAZINE HCL 25 MG/ML INJ IVP PRN (18:09)
--- NOTE | 2016-07-22 18:14 | HOSPPROG ---
Hospitalist Progress Note Assessment/Plan: Assessment; 55-year-old male presenting with acute alcohol withdrawal and severe esophagitis Plan: 1. Acute alcohol withdrawal. Evidenced by tachycardia and tremulousness, requiring scheduled Ativan in order to stabilize -given the tachycardia has improved and patient is less tremulous today, will place on as needed Ativan and remove scheduled Ativan -Recommend outpatient [facility] follow-up -treat nausea supportively with antiemetics 2. Severe esophagitis. Symptomatic, resulting in chest and upper abdominal discomfort, noted on upper endoscopy with biopsies obtained to rule out esophageal malignancy -patient will require outpatient follow-up at [facility] -adjusted from IV PPI to oral PPI twice daily today, continue for 8 weeks -follow-up biopsies if no malignancy repeat upper endoscopy in 8 weeks -most likely secondary to vomiting in the setting of alcoholism -treat chest pain symptomatically with GI cocktail and times 3. Hypernatremia. Acute, most likely secondary to poor free water intake in the setting of alcohol abuse, status post IV fluids, resolved 4. Hypertension. Chronic, continue patient's home dosage of metoprolol 5. Chronic coronary artery disease. Continue on beta-trent, holding full- dose aspirin, will initiate aspirin 81 mg once daily at discharge 6. Reported cirrhosis. Chronic, no evidence on imaging or labs, recommend outpatient provider follow-up Diet. Regular Prophylaxis. High risk patient, Lovenox 40 Code status. Full Disposition. Anticipated discharge is 07/23/2016, pending stabilization on as needed Ativan now that he has been adjusted off of scheduled Ativan. Subjective: Patient reports he has ongoing nausea Objective: Vital Signs Temp Pulse Resp BP Pulse Ox 36.7 C 87 18 130/80 H 96 07/22/16 16:15 07/22/16 16:15 07/22/16 16:15 07/22/16 16:15 07/22/16 16:15 Laboratory Results 07/22/16 05:14 07/22/16 05:14 07/21/16 07/22/16 07/23/16 05:59 05:59 05:59 Intake Total 1875 3989 225 Output Total 1650 7910 1825 Balance 225 209 -1600 PT 15.4 SEC (12.0-15.0) H 07/20/16 05:40 INR 1.22 (0.83-1.16) H 07/20/16 05:40 - Pending Discharge Pending Discharge Within 24 Hours: Yes Pending Discharge Date: 07/23/16 Pending Discharge Time: 11:00 - Physical Exam Constitutional: no apparent distress, not in pain, uncomfortable, No chronically ill appearing Cardiovascular: regular rate and rhythym, no murmur, rub, or gallop, No irregularly irregular, No tachycardia, No edema Respiratory: no respiratory distress, no rales or rhonchi, clear to auscultation Gastrointestinal: normoactive bowel sounds, no palpable masses, tenderness, No guarding, No distension Neurologic: AAOx3, sensation intact bilaterally, No asterixes Psychiatric: interacting appropriately, not encephalopathic, thought process linear, anxious, No agitated ICD10 Worksheet Patient Problems: Problems Problem Status Diagnosed Esophageal cancer Acute Alcohol withdrawal delirium Active Alcohol abuse Acute Alcohol withdrawal Acute Headache Acute
[2016-07-22 20:00] VITALS: RESP 16
[2016-07-22] MEDS: PANTOPRAZOLE SODIUM 40 MG TAB PO SCH (20:01)
[2016-07-23 08:10] VITALS: BP 124/75; TEMP 97.3; O2SAT 96
[2016-07-23] MEDS: PANTOPRAZOLE SODIUM 40 MG TAB PO SCH (08:38)
[2016-07-23] MEDS: ENOXAPARIN 40 MG/0.4 ML SYR SC SCH (08:38)
[2016-07-23] MEDS: ONDANSETRON DISINTEGRATING 4 MG TAB PO PRN (08:38)
[2016-07-23] MEDS: METOPROLOL TARTRATE 25 MG TAB PO SCH (08:38)
[2016-07-23 08:39] VITALS: PULSE 75
[2016-07-23] MEDS ORDERED: THIAMINE HCL 100 MG TAB PO SCH (09:00)
--- NOTE | 2016-07-23 11:39 | PDDCSUM ---
Discharge Summary Discharge Summary: DISCHARGE SUMMARY FOLLOW-UP ITEMS: Biopsy results pending at time of discharge DATE OF ADMISSION: 07/20/2016 DATE OF DISCHARGE: 07/23/2016 DISCHARGE DIAGNOSES: 1. Acute alcohol withdrawal 2. Severe esophagitis 3. Acute hypernatremia 4. Chronic hypertension 5. Chronic coronary artery disease 6. Reported chronic cirrhosis CONSULTATIONS: Gastroenterology by Dr. Fam PROCEDURES / IMAGING: Upper endoscopy by GI CHIEF COMPLAINT: Chest pain with nausea and vomiting SUBJECTIVE: Patient is feeling well at time of discharge, he reports that the Maalox has improved his chest discomfort PHYSICAL EXAM ON DISCHARGE: Systolic blood pressure is 120, heart rate 70, afebrile overnight, satting well on room air, alert awake oriented x3, no evidence of tremulousness LABS ON DISCHARGE: Hemoglobin 10.9, BUN 4, potassium 4, creatinine 0.5, liver panel unremarkable HOSPITAL COURSE BY PROBLEM: 1. Acute alcohol withdrawal. Evidenced by tachycardia and tremulousness, requiring scheduled Ativan in order to stabilize, he has been titrated off of scheduled Ativan and and onto as needed. He has not required any additional Ativan on the day of discharge. We recommend complete alcohol cessation and he should follow up at [facility]. 2. Severe esophagitis. Symptomatic, resulting in chest and upper abdominal discomfort, noted on upper endoscopy with biopsies taken from an area of particular malignant potential. Patient should be on PPI twice daily for 8 weeks and should have an upper endoscopy in 8 weeks if the area is not found to be malignant. Should follow up with GI of the [facility] within the next 2 weeks to discuss biopsy results. Should utilize a GI cocktail as needed for any ongoing chest discomfort. 3. Acute hyponatremia. Most likely secondary to poor oral free water intake in the setting of alcohol abuse. This improved with IV fluids. 4. Chronic hypertension. Patient's home dosage of metoprolol was continued. 5. Chronic coronary artery disease. Patient's aspirin was adjusted from 325 to 81 with enteric coating. 6. Reported chronic cirrhosis. There is no evidence on imaging or on his laboratory values. It is unclear how this outpatient diagnosis was obtained. [facility] for further monitoring. DISCHARGE MEDICATIONS: Please see official discharge medication reconciliation sheet in chart , aspirin 81 mg once daily enteric-coated, pantoprazole 40 mg twice daily, Maalox as needed, Zofran as needed. DISCHARGE INSTRUCTIONS: Patient should follow up with GI of the [facility] within the next 2 weeks, [facility]. TIME SPENT: Greater than 30 minutes were spent on direct patient care, as well as discharge planning and preparation, hand blocker present.
== END 2016-07-23 12:15 | disposition home or self-care (01) | DRG 392 ==
LOC: EDUNIT# → EEVIPCON 07-20 02:51 → OBSVTOIN 07-20 03:52 → F3E 07-20 03:55
PROVIDERS: ADMIT Hospitalist; ATTEND Hospitalist
PROC: 0DB48ZX Excision of Esophagogastric Junction, Via Natural or Artificial Opening Endoscopic, Diagnostic (ICD-10-PCS; principal; 2016-07-20 13:00)
DX: K20.8 Other esophagitis (principal); F10.239 Alcohol dependence with withdrawal, unspecified; E87.0 Hyperosmolality and hypernatremia; I25.10 Atherosclerotic heart disease of native coronary artery without angina pectoris; I10 Essential (primary) hypertension; K74.69 Other cirrhosis of liver; E83.42 Hypomagnesemia; Z72.0 Tobacco use; Z59.0 Homelessness; Z23 Encounter for immunization
CPT/HCPCS: 92610-GN; 96374; G0008; G0480; J1170; J1650; J2405; J2704; J2780; J3010; J3411; Q9967

== ENCOUNTER 2016-08-02 20:57 | Emergency (ER) | payer MEDICAID ==
[2016-08-02 21:07] VITALS: RESP 18; TEMP 98.8; O2SAT 96
[2016-08-02] MEDS ORDERED: ONDANSETRON 4 MG/2 ML VIAL IVP ONE (21:08)
[2016-08-02] MEDS ORDERED: NS 500 ML IV ONE (21:09)
[2016-08-02] MEDS ORDERED: MVI WITH VIT K 10 ML, FOLIC ACID 2.5 MG, THIAMINE HCL 100 MG, MAGNESIUM SULFATE 2 GM in... IV ONE (21:26)
[2016-08-02] MEDS ORDERED: PANTOPRAZOLE SODIUM 40 MG VIAL IVP ONE (21:26)
[2016-08-02] MEDS ORDERED: LORazepam 2 MG/ML INJ IVP ONE ×2 (21:34→22:53)
--- NOTE | 2016-08-02 21:34 | EDPHY ---
H & P Stated Complaint: fm [facility], intoxicated, vomiting, UL abdo pain radiates to back Time Seen by Provider: 08/02/16 21:20 HPI/ROS: CHIEF COMPLAINT: Epigastric pain HISTORY OF PRESENT ILLNESS: 55-year-old homeless male history of alcoholism in the ER via ambulance from the [facility]. He was seen at [facility] and sent to the [facility] and subsequently sent to the [facility] ER for complaints of epigastric pain radiating to his back, nausea, vomiting. He has prior admission to [facility] for similar complaints, most recently less than 2 weeks ago. Last drink of alcohol was last evening He denies: Melena, hematochezia, hematemesis, dyspnea, chest pain, syncope, near syncope, diaphoresis, cocaine use. PRIMARY CARE PROVIDER: no primary care provider REVIEW OF SYSTEMS: A ten point review of systems was performed and is negative with the exception of the items mentioned in the HPI PAST MEDICAL & SURGICAL HISTORY: Alcoholism. Coronary artery disease. Cirrhosis. Pancreatitis. Gastritis. SOCIAL HISTORY: homeless. Last drink alcohol last night. FAMILY HISTORY: No pertinent family history PHYSICAL EXAM (Prior to examination, patient consented to physical exam, hands were washed and my usual and customary physical exam procedures followed) 1) GENERAL: Well-developed, well-nourished, alert and oriented. Appears to be in no acute distress. 2) HEAD: Normocephalic, atraumatic 3) HEENT: Pupils equal, round, reactive to light bilaterally. Sclera anicteric. 4) NECK: Full range of motion, no meningeal signs. 5) LUNGS: Clear auscultation bilaterally, no wheezes, no rhonchi, no retractions. 6) HEART: Regular rate and rhythm, no murmur, no heave, no gallop. 7) ABDOMEN: No guarding, tender to palpation epigastrium negative McBurney's, negative Ring's, negative Rovsing's, negative peritoneal sign, 8) MUSCULOSKELETAL: Moving all extremities, no focal areas of tenderness, no obvious trauma. No peripheral edema or discoloration. 9) BACK: No CVA tenderness, no midline vertebral tenderness, no fluctuance, no step-off, no obvious trauma, no visual or palpable abnormality. 10) SKIN: No rash, no petechiae. 11) Psychiatric: Patient is oriented X 3, there is no agitation. He is tremulous DIFFERENTIAL DIAGNOSIS: no particular order including but not limited to acute pancreatitis, esophagitis, peptic ulcer disease, - Personal History Current Tetanus Diphtheria and Acellular Pertussis (TDAP): Yes Tetanus Vaccine Date: 2012 - Medical/Surgical History Hx Asthma: No Hx Chronic Respiratory Disease: No Hx Diabetes: No Hx Cardiac Disease: No Hx Renal Disease: No Hx Cirrhosis: Yes Hx Alcoholism: Yes Hx HIV/AIDS: No Hx Splenectomy or Spleen Trauma: No Other PMH: PMH: CAD, etoh abuse, cirrhosis, pancreatitis, gastritis, diverticulitis. PSH: none - Social History Smoking Status: Heavy smoker Constitutional: Initial Vital Signs Temperature (C) 37.1 C 08/02/16 21:05 Heart Rate 126 H 08/02/16 21:05 Respiratory Rate 18 08/02/16 21:05 Blood Pressure 182/92 H 08/02/16 21:05 O2 Sat (%) 96 08/02/16 21:05 O2 Delivery Mode Room Air Allergies/Adverse Reactions: No Allergies Allergy (Unknown, Verified 12/25/15 01:53) Home Medications: Medication Instructions Recorded Acetaminophen [Tylenol 325mg (*)] 325 mg PO DAILY PRN 04/07/14 Thiamine HCl [Vitamin B-1] 250 mg PO DAILY 07/20/16 Aspirin EC [Aspirin EC 81 mg (*)] 81 mg PO DAILY #30 tab 07/23/16 Mag Hydrox/Al Hydrox/Simeth 1 tbs PO Q6PRN PRN #1 oral.susp 07/23/16 [Maalox Maximum Strength Suspension] Metoprolol Tartrate [Lopressor 25 12.5 mg PO BID #60 tab 07/23/16 mg (*)] Ondansetron Odt [Zofran Odt 4 mg 4 mg PO Q4HRS PRN #40 tab 07/23/16 (*)] Pantoprazole Sodium [Protonix 40mg 40 mg PO BID #60 tab 07/23/16 (*)] Medical Decision Making - Diagnostics Imaging: Xray of the chest interpreted by myself: no definitive acute abnormality ED Course/Re-evaluation: 9:39 p.m.: Old medical records including recent hospital admission for esophagitis with GI consultation at the time of their concerns over possible lower esophageal malignancy. Results of this pathology report of 07/20/2016 show no intestinal metaplasia dysplasia or malignancy. Plan will be IV fluids, benzodiazepine for likely acute alcohol withdrawal, anti emetic, proton pump inhibitor, diagnostic studies re-evaluation 11:30 p.m. re-evaluation. Patient has been given benzodiazepine, tremors have decreased, heart rate has decreased, he is currently asymptomatic. Re-examined his abdomen which is soft no guarding or rebound. Doubt acute pancreatitis. Doubt acute surgical abdominal pathology. Doubt ND. Discussed case with Dr. Escamilla in the ER. Plan will be [facility]. Recommend alcohol cessation. - Data Points Laboratory Results: Laboratory Results 08/02/16 21:08 08/02/16 21:08 08/02/16 21:08 WBC 6.19 10^3/uL (3.80-9.50) RBC 5.04 10^6/uL (4.40-6.38) Hgb 11.2 L g/dL (13.7-17.5) Hct 35.3 L % (40.0-51.0) MCV 70.0 L fL (81.5-99.8) MCH 22.2 L pg (27.9-34.1) MCHC 31.7 L g/dL (32.4-36.7) RDW 23.5 H % (11.5-15.2) Plt Count 392 10^3/uL (150-400) MPV 9.7 fL (8.7-11.7) Neut % (Auto) 69.3 % (39.3-74.2) Lymph % (Auto) 17.0 % (15.0-45.0) [place] % (Auto) 11.3 % (4.5-13.0) Eos % (Auto) 0.5 L % (0.6-7.6) Baso % (Auto) 1.6 % (0.3-1.7) Nucleat RBC Rel Count 0.0 % (0.0-0.2) Absolute Neuts (auto) 4.29 10^3/uL (1.70-6.50) Absolute Lymphs (auto) 1.05 10^3/uL (1.00-3.00) Absolute Monos (auto) 0.70 10^3/uL (0.30-0.80) Absolute Eos (auto) 0.03 10^3/uL (0.03-0.40) Absolute Basos (auto) 0.10 10^3/uL (0.02-0.10) Absolute Nucleated RBC 0.00 10^3/uL (0-0.01) Immature Gran % 0.3 % (0.0-1.1) Immature Gran # 0.02 10^3/uL (0.00-0.10) Platelet Estimate ADEQUATE (ADEQ) Polychromasia 1+ H Microcytic Cells 1+ H Elliptocytes 1+ H PT 14.8 SEC (12.0-15.0) INR 1.16 (0.83-1.16) APTT 31.0 SEC (23.0-38.0) Sodium 138 mEq/L (134-144) Potassium 3.8 mEq/L (3.5-5.2) Chloride 97 mEq/L (97-110) Carbon Dioxide 23 mEq/l (22-31) Anion Gap 18 H mEq/L (8-16) BUN 9 mg/dL (7-23) Creatinine 0.6 L mg/dL (0.7-1.3) Estimated GFR > 60 Glucose 152 H mg/dL (70-100) Calcium 9.1 mg/dL (8.5-10.4) Total Bilirubin 0.6 mg/dL (0.1-1.4) Conjugated Bilirubin 0.3 mg/dL (0.0-0.5) Unconjugated Bilirubin 0.3 mg/dL (0.0-1.1) AST 57 IU/L (17-59) ALT 27 IU/L (21-72) Alkaline Phosphatase 77 IU/L (38-126) Troponin I 0.020 ng/mL (0-0.034) Total Protein 7.2 g/dL (6.3-8.2) Albumin 4.0 g/dL (3.5-5.0) Lipase 278.0 IU/L (23-300) Ethyl Alcohol 109 H mg/dL (0-10) Medications Given: Discontinued Medications Chlordiazepoxide (Librium 25 Mg Prepack#6) 1 btl TAKEHOME EDNOW ONE Stop: 08/02/16 22:56 Last Admin: 08/02/16 23:20 Dose: 1 btl Sodium Chloride (Ns) 500 mls @ 0 mls/hr IV EDNOW ONE PRN Reason: Wide Open Stop: 08/02/16 21:10 Last Admin: 08/02/16 21:15 Dose: 500 mls Multivitamins 10 ml/ Folic Acid 2.5 mg/ Thiamine HCl 100 mg/ Magnesium Sulfate 2 gm/Sodium Chloride 1,015.5 mls @ 0 mls/hr IV EDNOW ONE PRN Reason: As Directed Stop: 08/02/16 21:27 Last Admin: 08/02/16 22:19 Dose: 1,015.5 mls Lorazepam (Ativan Injection) 2 mg IVP EDNOW ONE Stop: 08/02/16 21:35 Last Admin: 08/02/16 22:18 Dose: 2 mg Lorazepam (Ativan Injection) 1 mg IVP EDNOW ONE Stop: 08/02/16 22:54 Last Admin: 08/02/16 23:14 Dose: 1 mg Ondansetron HCl (Zofran) 4 mg IVP EDNOW ONE Stop: 08/02/16 21:09 Last Admin: 08/02/16 21:10 Dose: 4 mg Pantoprazole Sodium (Protonix) 40 mg IVP EDNOW ONE Stop: 08/02/16 21:27 Last Admin: 08/02/16 22:19 Dose: 40 mg Departure - Departure Disposition: Home, Routine, Self-Care Clinical Impression: Alcohol withdrawal Qualifiers: Complication of substance-induced condition: uncomplicated Qualifier Code: ( F10.230) Alcohol dependence with withdrawal, uncomplicated Condition: Good Instructions: Alcohol Intoxication (ED), Abuse of Alcohol (ED) Referrals: [facility] [Outside] - As per Instructions
[2016-08-02 21:39] LABS: % IMMATURE GRANULYOCYTES 0.3 % (0.0-1.1); ABSOLUTE IMMATURE GRANULOCYTES 0.02 10^3/uL (0.00-0.10); ADD DIFF? NO; ADD MORPH? YES; ADD SCAN? NO; ATYPICAL LYMPHOCYTE FLAG 20 (0-99); FRAGMENT RBC FLAG 40 (0-99); HEMATOCRIT 35.3 % (40.0-51.0); HEMOGLOBIN 11.2 g/dL (13.7-17.5); LEFT SHIFT FLG 0 (0-99); LIPEMIA HEMOLYSIS FLAG 80 (0-99); MEAN CELL HEMOGLOBIN 22.2 pg (27.9-34.1); MEAN CELL HEMOGLOBIN CONCENTR. 31.7 g/dL (32.4-36.7); MEAN PLATELET VOLUME 9.7 fL (8.7-11.7); PLATELET CLUMPS FLAG 10 (0-99); PLATELET COUNT 392 10^3/uL (150-400); RED BLOOD CELL COUNT 5.04 10^6/uL (4.40-6.38)
[2016-08-02] MEDS ORDERED: NS 50 ML BAG IV ONE (21:39)
--- NOTE | 2016-08-02 21:40 | CPEKG ---
Heart Rate: 111 RR Interval: 541 P-R Interval: 128 QRSD Interval: 80 QT Interval: 320 QTC Interval: 435 P [place]: 63 QRS [place]: 45 T Wave [place]: 37 EKG Severity - OTHERWISE NORMAL ECG - EKG Impression: SINUS TACHYCARDIA Electronically Signed By: Kendell Escamilla 03-Aug-2016 00:00:06
[2016-08-02 21:48] LABS: ALANINE AMINOTRANSFERASE 27 IU/L (21-72); ALKALINE PHOSPHATASE 77 IU/L (38-126); ANION GAP 18 mEq/L (8-16); ASPARTATE AMINOTRANSFERASE 57 IU/L (17-59); BILIRUBIN,TOTAL 0.6 mg/dL (0.1-1.4); BILIRUBIN-CONJUGATED 0.3 mg/dL (0.0-0.5); BILIRUBIN-UNCONJUGATED 0.3 mg/dL (0.0-1.1); CALCIUM 9.1 mg/dL (8.5-10.4); CARBON DIOXIDE 23 mEq/l (22-31); CHLORIDE 97 mEq/L (97-110); CREATININE 0.6 mg/dL (0.7-1.3); ETHANOL SERUM 109 mg/dL (0-10); GLOMERULAR FILTRATION RATE > 60; GLUCOSE 152 mg/dL (70-100); POTASSIUM 3.8 mEq/L (3.5-5.2); SODIUM 138 mEq/L (134-144); TOTAL PROTEIN 7.2 g/dL (6.3-8.2)
[2016-08-02 21:51] LABS: RED CELL DISTRIBUTION WIDTH 23.5 % (11.5-15.2)
[2016-08-02 21:59] LABS: INR 1.16 (0.83-1.16); PROTIME(PATIENT) 14.8 SEC (12.0-15.0)
[2016-08-02 22:36] LABS: MICROCYTES 1+; POLYCHROMASIA 1+
[2016-08-02 22:37] LABS: ELLIPTOCYTES 1+; PLATELET ESTIMATE ADEQUATE (ADEQ)
[2016-08-02] MEDS ORDERED: CHLORDIAZEPOXIDE 25MG PREPK#6 BTL TAKEHOME ONE (22:55)
[2016-08-02 23:22] VITALS: BP 130/77; PULSE 106
--- NOTE | 2016-08-03 07:51 | DX ---
Chest, PA and Lateral History: Chest pain Comparison: September 29, 2015 Findings: A subtle bulge in the left paraspinal stripe centered at T8 is consistent with the known es ophageal thickening seen on CT of July 20. Lungs are clear, without infiltrate or consolidation. H eart size and pulmonary vascularity are normal. There is no adenopathy, pulmonary nodule or pulmonary mass lesion. There is no pleural effusion . There is stable mild compression abnormalities of T3, T4 and T6. Impression: Nothing acute identified.
== END 2016-08-02 23:42 | disposition home or self-care (01) ==
LOC: EDUNIT#
DX: F10.230 Alcohol dependence with withdrawal, uncomplicated (principal); I25.10 Atherosclerotic heart disease of native coronary artery without angina pectoris; F17.200 Nicotine dependence, unspecified, uncomplicated; Z79.82 Long term (current) use of aspirin
CPT/HCPCS: 96365; G0480; J2405; J3411

== ENCOUNTER 2016-08-22 01:50 | Emergency (ER) | payer MEDICAID ==
--- NOTE | 2016-08-22 02:26 | EDPHY ---
H & P Stated Complaint: ETOH, unable to ambulate at [facility] Time Seen by Provider: 08/22/16 02:00 HPI/ROS: HPI The patient presents with alcohol intoxication. He was found to be drunk by the [place] police earlier this evening. They placed [facility] on in [facility] hold and took him there. When he arrived there, he was unable to walk safely. Thus, the patient was transported to the emergency room. He denies any complaints currently.. REVIEW OF SYSTEMS Constitutional: No fever, no chills. Eyes: No discharge. ENT: No sore throat. Cardiovascular: No chest pain, no palpitations. Respiratory: No cough, no shortness of breath. Gastrointestinal: No abdominal pain, no vomiting. Genitourinary: No hematuria. Musculoskeletal: No back pain. Skin: No rashes. Neurological: No headache. PMHx: Chronic alcohol abuse, many previous visits for similar. Soc Hx: Homeless PHYSICAL General Appearance: Alert, obviously intoxicated Eyes: Pupils equal and round no pallor or injection ENT, Mouth: Mucous membranes moist Respiratory: There are no retractions, lungs are clear to auscultation Cardiovascular: Regular rate and rhythm Gastrointestinal: Abdomen is soft and non-tender, no masses, bowel sounds normal Neurological: A&O, moves all extremities Skin: Warm and dry, no rashes Musculoskeletal: Neck is supple non tender Extremities: symmetrical, full range of motion Psychiatric: there is no agitation Source: EMS Exam Limitations: Intoxication - Personal History Current Tetanus/Diphtheria Vaccine: Yes Current Tetanus Diphtheria and Acellular Pertussis (TDAP): Yes Tetanus Vaccine Date: 2012 - Medical/Surgical History Hx Asthma: No Hx Chronic Respiratory Disease: No Hx Diabetes: No Hx Cardiac Disease: No Hx Renal Disease: No Hx Cirrhosis: Yes Hx Alcoholism: Yes Hx HIV/AIDS: No Hx Splenectomy or Spleen Trauma: No Other PMH: PMH: CAD, etoh abuse, cirrhosis, pancreatitis, gastritis, diverticulitis. PSH: none - Social History Smoking Status: Heavy smoker Constitutional: Initial Vital Signs Heart Rate 80 08/22/16 01:59 Respiratory Rate 18 08/22/16 01:59 Blood Pressure 117/82 H 08/22/16 01:59 O2 Sat (%) 94 08/22/16 01:59 O2 Delivery Mode Room Air Allergies/Adverse Reactions: No Allergies Allergy (Unknown, Verified 08/22/16 01:58) Home Medications: Medication Instructions Recorded Acetaminophen [Tylenol 325mg (*)] 325 mg PO DAILY PRN 04/07/14 Thiamine HCl [Vitamin B-1] 250 mg PO DAILY 07/20/16 Aspirin EC [Aspirin EC 81 mg (*)] 81 mg PO DAILY #30 tab 07/23/16 Mag Hydrox/Al Hydrox/Simeth 1 tbs PO Q6PRN PRN #1 oral.susp 07/23/16 [Maalox Maximum Strength Suspension] Metoprolol Tartrate [Lopressor 25 12.5 mg PO BID #60 tab 07/23/16 mg (*)] Ondansetron Odt [Zofran Odt 4 mg 4 mg PO Q4HRS PRN #40 tab 07/23/16 (*)] Pantoprazole Sodium [Protonix 40mg 40 mg PO BID #60 tab 07/23/16 (*)] Medical Decision Making ED Course/Re-evaluation: 5:00 a.m.- The patient is able to ambulate without difficulty. He is appropriately sobered. [facility]. Differential Diagnosis: This is a 55-year-old homeless male with chronic alcohol abuse who presents with alcohol intoxication, unable to ambulate currently after drinking heavily tonight. He denies any medical complaints. Differential diagnosis includes alcohol abuse, less likely head trauma given no signs of injury, polysubstance abuse. Departure - Departure Disposition: Home, Routine, Self-Care Clinical Impression: Alcoholic intoxication Qualifiers: Complication of substance-induced condition: with unspecified complication Qualified Code(s): F10.129 - Alcohol abuse with intoxication, unspecified Condition: Fair Instructions: Alcohol Intoxication (ED) Referrals: [facility] [Outside] - As per Instructions
[2016-08-22 04:55] VITALS: BP 110/77; PULSE 78; RESP 16; O2SAT 93
[2016-08-22 05:09] VITALS: TEMP 97.2
== END 2016-08-22 04:55 | disposition home or self-care (01) ==
LOC: EDUNIT#
DX: F10.129 Alcohol abuse with intoxication, unspecified (principal); I25.10 Atherosclerotic heart disease of native coronary artery without angina pectoris; F17.200 Nicotine dependence, unspecified, uncomplicated; Z79.82 Long term (current) use of aspirin

== ENCOUNTER 2016-08-22 23:31 | Emergency (ER) | payer MEDICAID ==
[2016-08-22 23:39] VITALS: O2SAT 96
[2016-08-23] MEDS ORDERED: NS 1,000 ML IV ONE ×2 (00:35)
[2016-08-23] MEDS ORDERED: FAMOTIDINE 20 MG/NACL 50 ML IV ONE (00:35)
[2016-08-23] MEDS ORDERED: MAALOX/LIDO/HYOSC GI COCKTAIL 55 ML BOTTLE PO ONE (00:35)
[2016-08-23] MEDS ORDERED: ONDANSETRON 4 MG/2 ML VIAL IVP ONE (00:35)
[2016-08-23 00:55] LABS: ADD DIFF? YES; ADD MORPH? YES; ADD SCAN? NO; ATYPICAL LYMPHOCYTE FLAG 20 (0-99); FRAGMENT RBC FLAG 40 (0-99); HEMATOCRIT 34.7 % (40.0-51.0); HEMOGLOBIN 10.8 g/dL (13.7-17.5); LEFT SHIFT FLG 0 (0-99); LIPEMIA HEMOLYSIS FLAG 80 (0-99); MEAN CELL HEMOGLOBIN 22.3 pg (27.9-34.1); MEAN CELL HEMOGLOBIN CONCENTR. 31.1 g/dL (32.4-36.7); MEAN CELL VOLUME 71.7 fL (81.5-99.8); MEAN PLATELET VOLUME 10.1 fL (8.7-11.7); PLATELET CLUMPS FLAG 20 (0-99); PLATELET COUNT 326 10^3/uL (150-400); RED BLOOD CELL COUNT 4.84 10^6/uL (4.40-6.38)
[2016-08-23 00:56] LABS: RED CELL DISTRIBUTION WIDTH 23.8 % (11.5-15.2)
[2016-08-23 01:08] LABS: ALANINE AMINOTRANSFERASE 48 IU/L (21-72); ALKALINE PHOSPHATASE 79 IU/L (38-126); ANION GAP 10 mEq/L (8-16); ASPARTATE AMINOTRANSFERASE 35 IU/L (17-59); BILIRUBIN,TOTAL 0.6 mg/dL (0.1-1.4); BILIRUBIN-CONJUGATED 0.3 mg/dL (0.0-0.5); BILIRUBIN-UNCONJUGATED 0.3 mg/dL (0.0-1.1); CALCIUM 9.1 mg/dL (8.5-10.4); CARBON DIOXIDE 21 mEq/l (22-31); CHLORIDE 103 mEq/L (97-110); CREATININE 0.6 mg/dL (0.7-1.3); GLOMERULAR FILTRATION RATE > 60; GLUCOSE 100 mg/dL (70-100); SODIUM 134 mEq/L (134-144); TOTAL PROTEIN 7.2 g/dL (6.3-8.2)
[2016-08-23] MEDS ORDERED: LORazepam 2 MG/ML INJ IVP ONE ×2 (01:44→03:21)
[2016-08-23 01:56] LABS: HYPOCHROMIA 1+; LARGE PLATELETS PRESENT; MICROCYTES 2+; PLATELET ESTIMATE ADEQUATE (ADEQ)
[2016-08-23] MEDS ORDERED: LORazepam 2 MG/ML INJ ONE (03:16)
[2016-08-23] MEDS ORDERED: CHLORDIAZEPOXIDE 25MG PREPK#6 BTL TAKEHOME ONE (04:26)
[2016-08-23] MEDS ORDERED: chlordiazePOXIDE 25 MG CAP PO ONE (04:26)
--- NOTE | 2016-08-23 04:26 | EDPHY ---
H & P Stated Complaint: epigastric/esophageal pain, nausea, no ETOH x3d Time Seen by Provider: 08/23/16 00:32 HPI/ROS: Croatian speech language pathologist assistant used via the phone. HPI The patient presents with epigastric abdominal pain which has been present for the last 1 day. The pain is achy, radiates throughout his chest, it is associated with multiple episodes of nonbloody nonbilious emesis. He has had this pain before, and does have a diagnosis of esophagitis. He says he has been taking his medications as prescribed. He drinks alcohol daily and his last drink was about 1 day ago. I saw him in the emergency room approximately 24 hours ago for alcohol intoxication and [facility] was [facility]. He says he is coming in from there but would like to return there after he is discharged from here. REVIEW OF SYSTEMS Constitutional: No fever, no chills. Eyes: No discharge. ENT: No sore throat. Cardiovascular: No chest pain, no palpitations. Respiratory: No cough, no shortness of breath. Gastrointestinal: See HPI Genitourinary: No hematuria. Musculoskeletal: No back pain. Skin: No rashes. Neurological: No headache. PMHx: History of esophagitis, cirrhosis, CAD Soc Hx: Homeless, currently staying at [facility], history of alcohol abuse PHYSICAL General Appearance: Alert, no distress Eyes: Pupils equal and round no pallor or injection ENT, Mouth: Mucous membranes moist Respiratory: There are no retractions, lungs are clear to auscultation Cardiovascular: tachycardic rate with regular rhythm Gastrointestinal: Abdomen is soft with tenderness in the epigastrium, no guarding or rebound Neurological: A&O, moves all extremities Skin: Warm and dry, no rashes, fine hand tremor Musculoskeletal: Neck is supple non tender Extremities: symmetrical, full range of motion Psychiatric: Patient is oriented X 3, there is no agitation Source: Patient - Personal History Current Tetanus/Diphtheria Vaccine: Yes Current Tetanus Diphtheria and Acellular Pertussis (TDAP): Yes Tetanus Vaccine Date: 2012 - Medical/Surgical History Hx Asthma: No Hx Chronic Respiratory Disease: No Hx Diabetes: No Hx Cardiac Disease: No Hx Renal Disease: No Hx Cirrhosis: Yes Hx Alcoholism: Yes Hx HIV/AIDS: No Hx Splenectomy or Spleen Trauma: No Other PMH: PMH: CAD, etoh abuse, cirrhosis, pancreatitis, gastritis, diverticulitis. PSH: none - Social History Smoking Status: Heavy smoker Constitutional: Initial Vital Signs Temperature (C) 37.2 C 08/22/16 23:36 Heart Rate 125 H 08/22/16 23:36 Respiratory Rate 16 08/22/16 23:36 Blood Pressure 142/83 H 08/22/16 23:36 O2 Sat (%) 96 08/22/16 23:36 O2 Delivery Mode Room Air Allergies/Adverse Reactions: No Allergies Allergy (Unknown, Verified 08/22/16 01:58) Home Medications: Medication Instructions Recorded Acetaminophen [Tylenol 325mg (*)] 325 mg PO DAILY PRN 04/07/14 Thiamine HCl [Vitamin B-1] 250 mg PO DAILY 07/20/16 Aspirin EC [Aspirin EC 81 mg (*)] 81 mg PO DAILY #30 tab 07/23/16 Mag Hydrox/Al Hydrox/Simeth 1 tbs PO Q6PRN PRN #1 oral.susp 07/23/16 [Maalox Maximum Strength Suspension] Metoprolol Tartrate [Lopressor 25 12.5 mg PO BID #60 tab 07/23/16 mg (*)] Ondansetron Odt [Zofran Odt 4 mg 4 mg PO Q4HRS PRN #40 tab 07/23/16 (*)] Pantoprazole Sodium [Protonix 40mg 40 mg PO BID #60 tab 07/23/16 (*)] Medical Decision Making ED Course/Re-evaluation: The emergency room, patient was given 2 L of IV fluid, famotidine, Zofran and Ativan. Labs were checked and did reveal an elevated lipase. His abdominal exam was continually benign. His vomiting improved and he was able to rest comfortably. He was given additional dose of Ativan for alcohol withdrawal with improvement in his tachycardia and symptoms. I feel he likely has pancreatitis as the cause of his symptoms and I have told him this. He is to maintain a bland diet until he is feeling better. He will be discharged back to the [facility]. Differential Diagnosis: This is a 55-year-old homeless male with history of alcohol abuse, esophagitis, pancreatitis who presents from the [facility] with epigastric abdominal pain and vomiting. On exam, he is slightly tachycardic, he is well- appearing otherwise with minimal tenderness in his epigastric region. Differential diagnosis includes gastritis, esophagitis, pancreatitis, he does appear to be in mild alcohol withdrawal as well. - Data Points Laboratory Results: Laboratory Results 08/23/16 00:50 08/23/16 00:50 08/23/16 08/23/16 08/23/16 00:50 00:50 00:50 WBC 4.92 10^3/uL 10^3/uL (3.80-9.50) RBC 4.84 10^6/uL 10^6/uL (4.40-6.38) Hgb 10.8 g/dL L g/dL (13.7-17.5) Hct 34.7 % L % (40.0-51.0) MCV 71.7 fL L fL (81.5-99.8) MCH 22.3 pg L pg (27.9-34.1) MCHC 31.1 g/dL L g/dL (32.4-36.7) RDW 23.8 % H % (11.5-15.2) Plt Count 326 10^3/uL 10^3/uL (150-400) MPV 10.1 fL fL (8.7-11.7) Neut % (Auto) Not Reported Lymph % (Auto) Not Reported [place] % (Auto) Not Reported Eos % (Auto) Not Reported Baso % (Auto) Not Reported Nucleat RBC Rel Count 0.0 % % (0.0-0.2) Absolute Neuts (auto) Not Reported Absolute Lymphs (auto) Not Reported Absolute Monos (auto) Not Reported Absolute Eos (auto) Not Reported Absolute Basos (auto) Not Reported Absolute Nucleated RBC 0.00 10^3/uL 10^3/uL (0-0.01) Immature Gran % Not Reported Seg Neutrophils % 66 % % Band Neutrophils % 1 % % Lymphocytes % 12 % % Monocytes % 20 % % Basophils % 1 % % Immature Gran # Not Reported Absolute Seg Neuts 3.25 10^/uL 10^/uL (1.70-6.50) Absolute Band Neuts 0.05 10^3/uL 10^3/uL (0.00-0.70) Absolute Lymphocytes 0.59 10^3/uL L 10^3/uL (1.00-3.00) Absolute Monocytes 0.98 10^3/uL H 10^3/uL (0.30-0.80) Absolute Basophils 0.05 10^3/uL 10^3/uL (0.02-0.10) Differential Comment Cancelled RBC/WBC/PLT Morphology Cancelled Hypersegmented Neuts Cancelled Atypical Lymphocytes Cancelled Smudge Cells Cancelled Toxic Granulation Cancelled Toxic Vacuolation Cancelled Dohle Bodies Cancelled Francois Rods Cancelled Platelet Estimate Cancelled ADEQUATE (ADEQ) Large Platelets Cancelled PRESENT H Giant Platelets Cancelled Bizarre Platelets Cancelled Polychromasia Cancelled Hypochromasia Cancelled 1+ H Basophilic Stippling Cancelled Microcytic Cells Cancelled 2+ H Spherocytes Cancelled Pappenheimer Bodies Cancelled Sickle Cells Cancelled Target Cells Cancelled Tear Drop Cells Cancelled Oval Macrocytes Cancelled Stomatocytes Cancelled Campbell-[place] Bodies Cancelled Echinocytes Cancelled Elliptocytes Cancelled Acanthocytes (Spur) Cancelled Rouleaux Cancelled Keratocytes Cancelled Schistocytes Cancelled Sodium 134 mEq/L mEq/L (134-144) Potassium 4.0 mEq/L mEq/L (3.5-5.2) Chloride 103 mEq/L mEq/L (97-110) Carbon Dioxide 21 mEq/l L mEq/l (22-31) Anion Gap 10 mEq/L mEq/L (8-16) BUN 7 mg/dL mg/dL (7-23) Creatinine 0.6 mg/dL L mg/dL (0.7-1.3) Estimated GFR > 60 Glucose 100 mg/dL mg/dL (70-100) Calcium 9.1 mg/dL mg/dL (8.5-10.4) Total Bilirubin 0.6 mg/dL mg/dL (0.1-1.4) Conjugated Bilirubin 0.3 mg/dL mg/dL (0.0-0.5) Unconjugated Bilirubin 0.3 mg/dL mg/dL (0.0-1.1) AST 35 IU/L IU/L (17-59) ALT 48 IU/L IU/L (21-72) Alkaline Phosphatase 79 IU/L IU/L (38-126) Total Protein 7.2 g/dL g/dL (6.3-8.2) Albumin 4.0 g/dL g/dL (3.5-5.0) Lipase 329.0 IU/L H IU/L (23-300) Cold Agglutinins Cancelled Medications Given: Discontinued Medications Chlordiazepoxide (Librium 25 Mg Prepack#6) 1 btl TAKEHOME EDNOW ONE Stop: 08/23/16 04:27 Last Admin: 08/23/16 04:34 Dose: 1 btl Chlordiazepoxide HCl (Librium) 25 mg PO EDNOW ONE Stop: 08/23/16 04:27 Last Admin: 08/23/16 04:34 Dose: 25 mg Sodium Chloride (Ns) 1,000 mls @ 0 mls/hr IV ONCE ONE PRN Reason: Wide Open Stop: 08/23/16 00:36 Last Admin: 08/23/16 00:57 Dose: 1,000 mls Sodium Chloride (Ns) 1,000 mls @ 0 mls/hr IV ONCE ONE PRN Reason: Wide Open Stop: 08/23/16 00:36 Last Admin: 08/23/16 00:57 Dose: 1,000 mls Famotidine/Sodium Chloride (Pepcid 20 Mg (Premix)) 50 mls @ 200 mls/hr IV EDNOW ONE Stop: 08/23/16 00:49 Last Admin: 08/23/16 00:45 Dose: 50 mls Lorazepam (Ativan Injection) 1 mg IVP EDNOW ONE Stop: 08/23/16 01:45 Last Admin: 08/23/16 01:54 Dose: 1 mg Lorazepam (Ativan Injection) 1 mg IVP EDNOW ONE Stop: 08/23/16 03:22 Last Admin: 08/23/16 03:21 Dose: 1 mg Miscellaneous Medication (Gi Cocktail) 55 ml PO EDNOW ONE Stop: 08/23/16 00:36 Last Admin: 08/23/16 00:55 Dose: 55 ml Ondansetron HCl (Zofran) 4 mg IVP EDNOW ONE Stop: 08/23/16 00:36 Last Admin: 08/23/16 00:57 Dose: 4 mg Departure - Departure Disposition: Home, Routine, Self-Care Clinical Impression: Alcohol withdrawal, Pancreatitis Instructions: Pancreatitis (ED), Alcohol Withdrawal (ED) Additional Instructions: Please stop drinking alcohol, it is causing the problems with your pain. Referrals: [facility] [Outside] - As per Instructions
[2016-08-23 04:56] VITALS: BP 134/87; PULSE 105; RESP 20; TEMP 99.9
== END 2016-08-23 04:55 | disposition home or self-care (01) ==
DX: K85.90 Acute pancreatitis without necrosis or infection, unspecified (principal); F10.239 Alcohol dependence with withdrawal, unspecified; I25.10 Atherosclerotic heart disease of native coronary artery without angina pectoris; F17.200 Nicotine dependence, unspecified, uncomplicated; Z79.01 Long term (current) use of anticoagulants
CPT/HCPCS: 96374; J2405

== ENCOUNTER 2016-10-19 07:31 | Inpatient (IN) | payer MEDICAID ==
[2016-10-19 08:32] LABS: % IMMATURE GRANULYOCYTES 0.3 % (0.0-1.1); ABSOLUTE IMMATURE GRANULOCYTES 0.02 10^3/uL (0.00-0.10); ADD DIFF? NO; ADD MORPH? YES; ADD SCAN? NO; ATYPICAL LYMPHOCYTE FLAG 0 (0-99); FRAGMENT RBC FLAG 20 (0-99); HEMATOCRIT 31.8 % (40.0-51.0); HEMOGLOBIN 10.1 g/dL (13.7-17.5); LEFT SHIFT FLG 0 (0-99); LIPEMIA HEMOLYSIS FLAG 80 (0-99); MEAN CELL HEMOGLOBIN 22.6 pg (27.9-34.1); MEAN CELL HEMOGLOBIN CONCENTR. 31.8 g/dL (32.4-36.7); MEAN CELL VOLUME 71.3 fL (81.5-99.8); PLATELET CLUMPS FLAG 10 (0-99); PLATELET COUNT 219 10^3/uL (150-400); RED BLOOD CELL COUNT 4.46 10^6/uL (4.40-6.38)
[2016-10-19 08:34] LABS: RED CELL DISTRIBUTION WIDTH 23.1 % (11.5-15.2)
[2016-10-19] MEDS ORDERED: ONDANSETRON 4 MG/2 ML VIAL IVP ONE (08:36)
[2016-10-19] MEDS ORDERED: FAMOTIDINE 20 MG/NACL 50 ML IV ONE (08:36)
[2016-10-19] MEDS ORDERED: NS 1,000 ML IV ONE (08:36)
[2016-10-19] MEDS ORDERED: LORazepam 2 MG/ML INJ IVP ONE (08:36)
--- NOTE | 2016-10-19 08:36 | EDPHY ---
H & P Stated Complaint: N/V, generally feels bad.Was at [facility] this morning;pt has been drinking Time Seen by Provider: 10/19/16 08:01 HPI/ROS: CHIEF COMPLAINT: Chest pain, epigastric pain, vomiting HISTORY OF PRESENT ILLNESS: The patient presents to the ED with a several day history of chest pain, epigastric pain, vomiting and alcohol consumption. The patient does have a history of chronic alcoholic gastritis/esophagitis, cirrhosis and homelessness. The patient reports he was in the emergency department yesterday and was discharged home home after he was given pills for his symptoms. The patient reports he is only taking Tylenol, Advil and occasional aspirin. He reports he has been drinking moderately over the past day. The patient denies any melena or hematemesis. The patient reports moderate epigastric pain. REVIEW OF SYSTEMS: A comprehensive 10 point review of systems is otherwise negative aside from elements mentioned in the history of present illness. Source: Patient Exam Limitations: No limitations - Personal History Current Tetanus Diphtheria and Acellular Pertussis (TDAP): Yes Tetanus Vaccine Date: 2012 - Medical/Surgical History Hx Asthma: No Hx Chronic Respiratory Disease: No Hx Diabetes: No Hx Cardiac Disease: No Hx Renal Disease: No Hx Cirrhosis: Yes Hx Alcoholism: Yes Hx HIV/AIDS: No Hx Splenectomy or Spleen Trauma: No Other PMH: PMH: Etoh abuse, cirrhosis, pancreatitis, gastritis, diverticulitis. PSH: None - Social History Smoking Status: Heavy smoker Alcohol Use: Heavy - Physical Exam Exam: General Appearance: Alert, no distress, disheveled, alcohol on breath Eyes: Pupils equal and round no pallor or injection ENT, Mouth: Mucous membranes moist Respiratory: There are no retractions, lungs are clear to auscultation Cardiovascular: Regular rate and rhythm Gastrointestinal: Epigastric tenderness, no peritoneal signs, Neurological: A&O, normal motor function, normal sensory exam, normal cranial nerves Skin: Warm and dry, no rashes Musculoskeletal: Neck is supple nontender Extremities: symmetrical, full range of motion Constitutional: Initial Vital Signs Temperature (C) 36.7 C 10/19/16 07:33 Heart Rate 126 H 10/19/16 07:33 Respiratory Rate 18 10/19/16 07:33 Blood Pressure 151/93 H 10/19/16 07:33 O2 Sat (%) 95 10/19/16 07:33 O2 Delivery Mode Room Air Allergies/Adverse Reactions: No Allergies Allergy (Unknown, Verified 10/19/16 07:34) Home Medications: Medication Instructions Recorded Acetaminophen [Tylenol 325mg (*)] 325 mg PO DAILY PRN 04/07/14 Thiamine HCl [Vitamin B-1] 250 mg PO DAILY 07/20/16 Aspirin EC [Aspirin EC 81 mg (*)] 81 mg PO DAILY #30 tab 07/23/16 Mag Hydrox/Al Hydrox/Simeth 1 tbs PO Q6PRN PRN #1 oral.susp 07/23/16 [Maalox Maximum Strength Suspension] Metoprolol Tartrate [Lopressor 25 12.5 mg PO BID #60 tab 07/23/16 mg (*)] Ondansetron Odt [Zofran Odt 4 mg 4 mg PO Q4HRS PRN #40 tab 07/23/16 (*)] Pantoprazole Sodium [Protonix 40mg 40 mg PO BID #60 tab 07/23/16 (*)] Medical Decision Making ED Course/Re-evaluation: The patient presents to the ED with epigastric pain, multiple episodes of vomiting and inability to keep any fluids down. The patient was slightly tachycardic upon arrival. Patient received IV fluid rehydration. The patient received IV Zofran and 1 mg of IV Ativan. The patient is noted to have an elevated lipase. The patient is also tachycardic. The patient will require admission to the hospital for supportive care. He is certainly at risk for alcohol withdrawal. The patient will be admitted to the [facility] by the hospitalist service. Differential Diagnosis: Differential diagnosis considered includes pancreatitis, alcohol withdrawal, dehydration, gastroenteritis - Data Points Laboratory Results: Laboratory Results 10/19/16 08:22 10/19/16 08:22 10/19/16 10/19/16 08:22 08:22 WBC 5.87 10^3/uL 10^3/uL (3.80-9.50) RBC 4.46 10^6/uL 10^6/uL (4.40-6.38) Hgb 10.1 g/dL L g/dL (13.7-17.5) Hct 31.8 % L % (40.0-51.0) MCV 71.3 fL L fL (81.5-99.8) MCH 22.6 pg L pg (27.9-34.1) MCHC 31.8 g/dL L g/dL (32.4-36.7) RDW 23.1 % H % (11.5-15.2) Plt Count 219 10^3/uL 10^3/uL (150-400) MPV 9.0 fL fL (8.7-11.7) Neut % (Auto) 59.6 % % (39.3-74.2) Lymph % (Auto) 26.1 % % (15.0-45.0) [place] % (Auto) 13.1 % H % (4.5-13.0) Eos % (Auto) 0.2 % L % (0.6-7.6) Baso % (Auto) 0.7 % % (0.3-1.7) Nucleat RBC Rel Count 0.0 % % (0.0-0.2) Absolute Neuts (auto) 3.50 10^3/uL 10^3/uL (1.70-6.50) Absolute Lymphs (auto) 1.53 10^3/uL 10^3/uL (1.00-3.00) Absolute Monos (auto) 0.77 10^3/uL 10^3/uL (0.30-0.80) Absolute Eos (auto) 0.01 10^3/uL L 10^3/uL (0.03-0.40) Absolute Basos (auto) 0.04 10^3/uL 10^3/uL (0.02-0.10) Absolute Nucleated RBC 0.00 10^3/uL 10^3/uL (0-0.01) Immature Gran % 0.3 % % (0.0-1.1) Immature Gran # 0.02 10^3/uL 10^3/uL (0.00-0.10) Platelet Estimate ADEQUATE (ADEQ) Polychromasia 1+ H Hypochromasia 2+ H Microcytic Cells 1+ H Sodium 140 mEq/L mEq/L (134-144) Potassium 3.2 mEq/L L mEq/L (3.5-5.2) Chloride 100 mEq/L mEq/L (97-110) Carbon Dioxide 25 mEq/l mEq/l (22-31) Anion Gap 15 mEq/L mEq/L (8-16) BUN 7 mg/dL mg/dL (7-23) Creatinine 0.6 mg/dL L mg/dL (0.7-1.3) Estimated GFR > 60 Glucose 86 mg/dL mg/dL (70-100) Calcium 8.9 mg/dL mg/dL (8.5-10.4) Lipase 1103.0 IU/L H IU/L (23-300) Medications Given: Discontinued Medications Sodium Chloride (Ns) 1,000 mls @ 0 mls/hr IV ONCE ONE PRN Reason: Wide Open Stop: 10/19/16 08:37 Last Admin: 10/19/16 08:51 Dose: 1,000 mls Famotidine/Sodium Chloride (Pepcid 20 Mg (Premix)) 50 mls @ 200 mls/hr IV EDNOW ONE Stop: 10/19/16 08:50 Last Admin: 10/19/16 08:50 Dose: 50 mls Lorazepam (Ativan Injection) 1 mg IVP EDNOW ONE Stop: 10/19/16 08:37 Last Admin: 10/19/16 08:51 Dose: 1 mg Ondansetron HCl (Zofran) 4 mg IVP EDNOW ONE Stop: 10/19/16 08:37 Last Admin: 10/19/16 08:52 Dose: 4 mg Departure - Departure Disposition: [facility] Acute Clinical Impression: Alcohol abuse Pancreatitis Qualifiers: Chronicity: acute Pancreatitis type: alcohol induced Acute pancreatitis complication: unspecified Qualified Code(s): K85.20 - Alcohol induced acute pancreatitis without necrosis or infection Vomiting Qualifiers: Vomiting type: bilious vomiting Nausea presence: with nausea Qualified Code(s) : R11.14 - Bilious vomiting Condition: Good
[2016-10-19 08:44] LABS: ANION GAP 15 mEq/L (8-16); CALCIUM 8.9 mg/dL (8.5-10.4); CARBON DIOXIDE 25 mEq/l (22-31); CHLORIDE 100 mEq/L (97-110); CREATININE 0.6 mg/dL (0.7-1.3); GLOMERULAR FILTRATION RATE > 60; GLUCOSE 86 mg/dL (70-100); POTASSIUM 3.2 mEq/L (3.5-5.2); SODIUM 140 mEq/L (134-144)
[2016-10-19 08:59] LABS: HYPOCHROMIA 2+; MICROCYTES 1+; PLATELET ESTIMATE ADEQUATE (ADEQ); POLYCHROMASIA 1+
[2016-10-19] MEDS ORDERED: ONDANSETRON DISINTEGRATING 4 MG TAB PO PRN (15:07)
[2016-10-19] MEDS ORDERED: ONDANSETRON 4 MG/2 ML VIAL IVP PRN (15:07)
[2016-10-19] MEDS ORDERED: PROMETHAZINE HCL 25 MG TAB PO PRN (15:07)
[2016-10-19] MEDS ORDERED: LORazepam 1 MG TAB PO PRN (15:10)
[2016-10-19] MEDS ORDERED: LORazepam 2 MG/ML INJ IVP PRN (15:10)
--- NOTE | 2016-10-19 15:52 | PDGENHP ---
History and Physical - Chief Complaint Acute abdominal pain - History of Present Illness 55-year-old male presents with acute abdominal pain characterized as sharp, severe, located in the mid epigastric area, radiating to the back, associated with vomiting, chest pain. Onset of symptoms was several days ago and duration has been persistently worsening thereafter. It is rendered the patient unable to tolerate solids and liquids. Patient reports his last alcoholic beverage was 2 days ago. The patient has continued to drink alcohol despite our guidance not to back in June of 2016, because he believes that it alleviates his abdominal pain symptoms. He reports that his last bowel movement was approximately 2 days ago and his discomfort is somewhat exacerbated by oral intake of solid foods. He received IV normal saline, Zofran, abdomen in the emergency department. Patient is unclear about which medications he has been taking but he reports that he may have been taking once daily pantoprazole leading up to this presentation. He also reports that he is taking ibuprofen 1 tab twice daily. He has noted possible blood in the stool, possible blood in his vomit History Information - Allergies/Home Medication List Allergies/Adverse Reactions: No Allergies Allergy (Unknown, Verified 10/19/16 07:34) Home Medications: Acetaminophen [Tylenol 325mg (*)] 325 mg PO DAILY PRN 04/07/14 [Last Taken Unknown] Ibuprofen [Motrin (*)] 200 mg PO DAILY PRN 10/19/16 [Last Taken Unknown] I have personally reviewed and updated: family history, medical history, social history, surgical history - Past Medical History coronary artery disease, hypertension Additional medical history: alcohol abuse, cirrhosis, pancreatitis, acute alcohol withdrawal - Surgical History Additional surgical history: EGD in June of 2016 demonstrating inflammation but no malignant cells - Family History Additional family history: father and sibling with alcoholism - Social History Smoking Status: Heavy smoker Alcohol Use: Heavy Drug Use: None Additional social history: normally independent in his ADLs Review of Systems ROS: 10pt was reviewed & negative except for what was stated in HPI & below Cardiac: Reports: chest pain Gastrointestinal: Reports: vomitting, abdominal pain Physical Exam Temp Pulse Resp BP Pulse Ox 36.8 C 96 18 137/84 H 90 L 10/19/16 15:29 10/19/16 15:29 10/19/16 15:29 10/19/16 15:29 10/19/16 15:29 Constitutional: no apparent distress, uncomfortable, other ( disheveled), No not in pain ( abdominal) Eyes: PERRL, anicteric sclera, EOMI Ears, Nose, Mouth, Throat: no oral mucosal ulcers, other ( tacky mucous membranes) Cardiovascular: tachycardia, No systolic murmur, No irregularly irregular, No edema Respiratory: no respiratory distress, no rales or rhonchi, clear to auscultation Gastrointestinal: normoactive bowel sounds, tenderness ( midepigastric area), guarding ( voluntary), No distension Skin: warm, normal color, no rashes or abrasions, no fluctuance, no induration, No mottled Neurologic: AAOx3, No weakness ( motor strength 5/5 bilateral), No asterixes ( bilateral tremulous upper extremity) Psychiatric: not encephalopathic, thought process linear, anxious, No agitated Lab Data & Imaging Review 10/19/16 08:22 10/19/16 08:22 WBC 5.87 10^3/uL (3.80-9.50) 10/19/16 08:22 RBC 4.46 10^6/uL (4.40-6.38) 10/19/16 08:22 Hgb 10.1 g/dL (13.7-17.5) L 10/19/16 08:22 Hct 31.8 % (40.0-51.0) L 10/19/16 08:22 MCV 71.3 fL (81.5-99.8) L 10/19/16 08:22 MCH 22.6 pg (27.9-34.1) L 10/19/16 08:22 MCHC 31.8 g/dL (32.4-36.7) L 10/19/16 08:22 RDW 23.1 % (11.5-15.2) H 10/19/16 08:22 Plt Count 219 10^3/uL (150-400) 10/19/16 08:22 MPV 9.0 fL (8.7-11.7) 10/19/16 08:22 Neut % (Auto) 59.6 % (39.3-74.2) 10/19/16 08:22 Lymph % (Auto) 26.1 % (15.0-45.0) 10/19/16 08:22 [place] % (Auto) 13.1 % (4.5-13.0) H 10/19/16 08:22 Eos % (Auto) 0.2 % (0.6-7.6) L 10/19/16 08:22 Baso % (Auto) 0.7 % (0.3-1.7) 10/19/16 08:22 Nucleat RBC Rel Count 0.0 % (0.0-0.2) 10/19/16 08:22 Absolute Neuts (auto) 3.50 10^3/uL (1.70-6.50) 10/19/16 08:22 Absolute Lymphs (auto) 1.53 10^3/uL (1.00-3.00) 10/19/16 08:22 Absolute Monos (auto) 0.77 10^3/uL (0.30-0.80) 10/19/16 08:22 Absolute Eos (auto) 0.01 10^3/uL (0.03-0.40) L 10/19/16 08:22 Absolute Basos (auto) 0.04 10^3/uL (0.02-0.10) 10/19/16 08:22 Absolute Nucleated RBC 0.00 10^3/uL (0-0.01) 10/19/16 08:22 Immature Gran % 0.3 % (0.0-1.1) 10/19/16 08:22 Immature Gran # 0.02 10^3/uL (0.00-0.10) 10/19/16 08:22 Platelet Estimate ADEQUATE (ADEQ) 10/19/16 08:22 Polychromasia 1+ H 10/19/16 08:22 Hypochromasia 2+ H 10/19/16 08:22 Microcytic Cells 1+ H 10/19/16 08:22 Sodium 140 mEq/L (134-144) 10/19/16 08:22 Potassium 3.2 mEq/L (3.5-5.2) L 10/19/16 08:22 Chloride 100 mEq/L (97-110) 10/19/16 08:22 Carbon Dioxide 25 mEq/l (22-31) 10/19/16 08:22 Anion Gap 15 mEq/L (8-16) 10/19/16 08:22 BUN 7 mg/dL (7-23) 10/19/16 08:22 Creatinine 0.6 mg/dL (0.7-1.3) L 10/19/16 08:22 Estimated GFR > 60 10/19/16 08:22 Glucose 86 mg/dL (70-100) 10/19/16 08:22 Calcium 8.9 mg/dL (8.5-10.4) 10/19/16 08:22 Lipase 1103.0 IU/L (23-300) H 10/19/16 08:22 Assessment & Plan Assessment: 55-year-old male presents with acute alcohol-induced pancreatitis complicated by acute alcohol withdrawal Plan: 1. Alcohol induced pancreatitis. Acute on chronic, evidenced by lipase of 1100 + focal abdominal tenderness - reviewed outside records including 08/23/2016 emergency department report by Dr. Archer, reporting patient presented with acute pancreatitis and lipase of 330, treated with Zofran, famotidine, Ativan, normal saline, discharged - make NPO with ice chips only - high rate IV fluids - IV pain and antiemetic medications - complete alcohol cessation 2. Acute alcohol withdrawal. Evidenced by tachycardia plus tremulousness plus approximately 48 hours since last beverage - placed on CIWA, p.r.n. Ativan, escalate to scheduled if condition worsening 3. Chest pain. Acute, new problem this provider, further workup indicated. Most likely etiology is pancreatitis but patient's underlying coronary artery disease does place him at high risk for pain induced ischemia - get EKG - get two view chest x-ray to rule out widening mediastinum - send troponin level - send liver panel to evaluate for alcohol induced hepatitis - hold aspirin, get fecal occult blood 4. Esophagitis. Chronic, historically on PPI, continue 5. Coronary artery disease. Chronic, rule out ischemia with troponin and EKG, hold aspirin given possibility of GI bleed Diet. NPO with ice chips Prophylaxis. High risk patient, SCDs, hold pharm given possible bleed Code. Full Disposition. Anticipated discharge is uncertain this time, anticipated length stay is greater than 48 hours warranting inpatient admission status for acute on chronic pancreatitis complicated by high risk comorbid acute alcohol withdrawal, acute chest pain warranting further workup in the setting of known coronary artery disease. I have discussed patient's presentation with Dr. Kendell Escamilla in the emergency department, we have agreed to admit the patient to a med surg unit.
[2016-10-19 17:12] LABS: ALBUMIN 4.2 g/dL (3.5-5.0); BILIRUBIN,TOTAL 0.6 mg/dL (0.1-1.4); BILIRUBIN-CONJUGATED 0.4 mg/dL (0.0-0.5); BILIRUBIN-UNCONJUGATED 0.2 mg/dL (0.0-1.1); TOTAL PROTEIN 7.2 g/dL (6.3-8.2)
[2016-10-19 17:22] LABS: TROPONIN I 0.022 ng/mL (0-0.034)
[2016-10-19] MEDS: NS W/ 20 KCl/L 1,000 ML IV SCH ×2 (17:23→23:15)
[2016-10-19] MEDS: PANTOPRAZOLE SODIUM 40 MG in NS 100 ML IV SCH (17:25)
--- NOTE | 2016-10-19 18:06 | CPEKG ---
Heart Rate: 81 RR Interval: 741 P-R Interval: 136 QRSD Interval: 72 QT Interval: 372 QTC Interval: 432 P [place]: 51 QRS [place]: 30 T Wave [place]: 56 EKG Severity - NORMAL ECG - EKG Impression: SINUS RHYTHM Electronically Signed By: Juno Dunbar 20-Oct-2016 12:14:53
[2016-10-20] MEDS: NS W/ 20 KCl/L 1,000 ML IV SCH ×4 (04:17→20:20)
[2016-10-20 05:24] LABS: % IMMATURE GRANULYOCYTES 0.5 % (0.0-1.1); ABSOLUTE IMMATURE GRANULOCYTES 0.03 10^3/uL (0.00-0.10); ADD DIFF? NO; ADD MORPH? YES; ADD SCAN? NO; ATYPICAL LYMPHOCYTE FLAG 0 (0-99); FRAGMENT RBC FLAG 40 (0-99); HEMATOCRIT 31.4 % (40.0-51.0); HEMOGLOBIN 9.7 g/dL (13.7-17.5); LEFT SHIFT FLG 0 (0-99); LIPEMIA HEMOLYSIS FLAG 80 (0-99); MEAN CELL HEMOGLOBIN 22.7 pg (27.9-34.1); MEAN CELL HEMOGLOBIN CONCENTR. 30.9 g/dL (32.4-36.7); MEAN CELL VOLUME 73.4 fL (81.5-99.8); MEAN PLATELET VOLUME 9.7 fL (8.7-11.7); PLATELET CLUMPS FLAG 0 (0-99); PLATELET COUNT 162 10^3/uL (150-400); RED BLOOD CELL COUNT 4.28 10^6/uL (4.40-6.38)
[2016-10-20 05:26] LABS: RED CELL DISTRIBUTION WIDTH 23.1 % (11.5-15.2)
[2016-10-20 06:05] LABS: ALANINE AMINOTRANSFERASE 31 IU/L (21-72); ALBUMIN 3.6 g/dL (3.5-5.0); ALKALINE PHOSPHATASE 92 IU/L (38-126); ANION GAP 11 mEq/L (8-16); ASPARTATE AMINOTRANSFERASE 32 IU/L (17-59); BILIRUBIN,TOTAL 1.2 mg/dL (0.1-1.4); CALCIUM 8.5 mg/dL (8.5-10.4); CARBON DIOXIDE 22 mEq/l (22-31); CHLORIDE 103 mEq/L (97-110); CREATININE 0.6 mg/dL (0.7-1.3); GLOMERULAR FILTRATION RATE > 60; GLUCOSE 70 mg/dL (70-100); MAGNESIUM 1.7 mg/dL (1.6-2.3); POTASSIUM 4.3 mEq/L (3.5-5.2); SODIUM 136 mEq/L (134-144); TOTAL PROTEIN 6.6 g/dL (6.3-8.2)
[2016-10-20 06:10] LABS: HYPOCHROMIA 2+
[2016-10-20 06:11] LABS: MACROCYTES 1+; MICROCYTES 1+
[2016-10-20 06:12] LABS: PLATELET ESTIMATE ADEQUATE (ADEQ); POLYCHROMASIA 1+
[2016-10-20] MEDS: PANTOPRAZOLE SODIUM 40 MG in NS 100 ML IV SCH (07:19)
--- NOTE | 2016-10-20 08:23 | HOSPPROG ---
Hospitalist Progress Note Assessment/Plan: # acute etOH pancreatitis - still very tender abd, not ready for PO challenge - cont supportive care, IVF, NPO, IV narcotics # etOH abuse and w/d - cont CIWA, thiamine # chest pain - most likely d/t pancreatitis though he has a hx of CAD; trop neg , ECG nl - check one more trop # hx CAD - holding asa # microcytic anemia - EGD with esophagitis, suspect chronic GI loss - will start PO Fe when taking PO; hold asa # esophagitis - cont PPI IV ## ECG personally reviewed chart reviewed CXR reviewed Subjective: ongoing abd and chest pain Objective: Vital Signs Temp Pulse Resp BP Pulse Ox 36.8 C 78 16 149/85 H 95 10/20/16 07:55 10/20/16 07:55 10/20/16 07:55 10/20/16 07:55 10/20/16 07:55 Laboratory Results 10/20/16 05:00 10/20/16 05:00 10/19/16 10/20/16 10/21/16 05:59 05:59 05:59 Intake Total 3151 387 Output Total 800 600 Balance 2351 -213 - Physical Exam Constitutional: no apparent distress Cardiovascular: regular rate and rhythym, no murmur, rub, or gallop Respiratory: no respiratory distress, no rales or rhonchi, clear to auscultation Gastrointestinal: normoactive bowel sounds, no palpable masses, tenderness (LUQ) , No guarding, No rebound ICD10 Worksheet Patient Problems: Problems Problem Status Onset Alcohol withdrawal delirium Active Alcohol withdrawal Acute Headache Acute Alcohol abuse Acute Esophageal cancer Acute Pancreatitis Acute Vomiting Acute
[2016-10-20] MEDS: THIAMINE HCL 100 MG in NS 100 ML IV SCH (08:41)
[2016-10-20] MEDS ORDERED: ENOXAPARIN 40 MG/0.4 ML SYR SC SCH (09:00)
[2016-10-20] MEDS ORDERED: ASPIRIN EC 81 MG TAB PO SCH (09:00)
[2016-10-21] MEDS: NS W/ 20 KCl/L 1,000 ML IV SCH ×2 (02:16→07:22)
[2016-10-21 05:39] LABS: % IMMATURE GRANULYOCYTES 0.6 % (0.0-1.1); ABSOLUTE IMMATURE GRANULOCYTES 0.04 10^3/uL (0.00-0.10); ADD DIFF? NO; ADD MORPH? YES; ADD SCAN? NO; ATYPICAL LYMPHOCYTE FLAG 0 (0-99); FRAGMENT RBC FLAG 40 (0-99); HEMOGLOBIN 10.3 g/dL (13.7-17.5); LEFT SHIFT FLG 0 (0-99); LIPEMIA HEMOLYSIS FLAG 80 (0-99); MEAN CELL HEMOGLOBIN 22.5 pg (27.9-34.1); MEAN CELL HEMOGLOBIN CONCENTR. 30.3 g/dL (32.4-36.7); MEAN CELL VOLUME 74.4 fL (81.5-99.8); MEAN PLATELET VOLUME 9.7 fL (8.7-11.7); PLATELET CLUMPS FLAG 0 (0-99); PLATELET COUNT 170 10^3/uL (150-400); RED BLOOD CELL COUNT 4.57 10^6/uL (4.40-6.38)
[2016-10-21 05:45] LABS: RED CELL DISTRIBUTION WIDTH 23.4 % (11.5-15.2)
[2016-10-21 06:04] LABS: ALANINE AMINOTRANSFERASE 32 IU/L (21-72); ALBUMIN 3.7 g/dL (3.5-5.0); ALKALINE PHOSPHATASE 105 IU/L (38-126); ANION GAP 9 mEq/L (8-16); ASPARTATE AMINOTRANSFERASE 29 IU/L (17-59); BILIRUBIN,TOTAL 0.8 mg/dL (0.1-1.4); CALCIUM 8.7 mg/dL (8.5-10.4); CARBON DIOXIDE 20 mEq/l (22-31); CHLORIDE 105 mEq/L (97-110); CREATININE 0.5 mg/dL (0.7-1.3); GLOMERULAR FILTRATION RATE > 60; GLUCOSE 77 mg/dL (70-100); POTASSIUM 4.5 mEq/L (3.5-5.2); SODIUM 134 mEq/L (134-144); TOTAL PROTEIN 7.1 g/dL (6.3-8.2)
[2016-10-21 06:07] LABS: HYPOCHROMIA 1+; MACROCYTES 1+; PLATELET ESTIMATE ADEQUATE (ADEQ); POLYCHROMASIA 1+
[2016-10-21] MEDS: PANTOPRAZOLE SODIUM 40 MG in NS 100 ML IV SCH (07:50)
[2016-10-21] MEDS: THIAMINE HCL 100 MG in NS 100 ML IV SCH (09:07)
[2016-10-21] MEDS ORDERED: CALCIUM CARBONATE 500 MG CHEWABLE TAB PO PRN (09:57)
[2016-10-21] MEDS: oxyCODONE IR 5 MG TAB PO PRN ×2 (11:57→23:20)
--- NOTE | 2016-10-21 14:52 | HOSPPROG ---
Hospitalist Progress Note Assessment/Plan: # acute etOH pancreatitis - slow improvement; will advance diet today for PO challenge - cont supportive care, IVF, NPO, IV narcotics # etOH abuse and w/d - cont CIWA, thiamine # chest pain - suspect this is d/t pancreatitis vs esophagitis # hx CAD - holding asa # microcytic anemia - EGD with esophagitis, +FOBT - chronic GI loss - will start PO Fe when taking PO; hold asa # esophagitis - cont PPI IV Subjective: ongoing abd pain; tolerated lclears Objective: Vital Signs Temp Pulse Resp BP Pulse Ox 36.7 C 109 H 18 142/92 H 95 10/21/16 12:00 10/21/16 12:00 10/21/16 12:00 10/21/16 12:00 10/21/16 12:00 Laboratory Results 10/21/16 05:28 10/21/16 05:28 10/20/16 10/21/16 10/22/16 05:59 05:59 05:59 Intake Total 2101 6242 480 Output Total 800 4645 1400 Balance 1301 1597 -920 mod risk - Physical Exam Constitutional: no apparent distress, appears nourished Cardiovascular: regular rate and rhythym, no murmur, rub, or gallop Respiratory: no respiratory distress, no rales or rhonchi, clear to auscultation Gastrointestinal: normoactive bowel sounds, no palpable masses, other (diffuse TTP; soft) ICD10 Worksheet Patient Problems: Problems Problem Status Onset Alcohol withdrawal delirium Active Alcohol withdrawal Acute Headache Acute Alcohol abuse Acute Esophageal cancer Acute Pancreatitis Acute Vomiting Acute
[2016-10-22 03:22] VITALS: O2SAT 97
[2016-10-22] MEDS ORDERED: MAG HYDROX/AL HYDROX/SIMETH 30 ML UDCUP PO ONE (09:11)
[2016-10-22] MEDS ORDERED: HYOSCYAMINE SULFATE 0.125 MG TAB PO ONE (09:11)
[2016-10-22] MEDS ORDERED: LIDOCAINE 2% VISCOUS 15 ML UDCUP PO ONE (09:11)
[2016-10-22] MEDS: PANTOPRAZOLE SODIUM 40 MG in NS 100 ML IV SCH (09:23)
[2016-10-22] MEDS: THIAMINE HCL 100 MG in NS 100 ML IV SCH (10:01)
[2016-10-22 11:13] VITALS: BP 131/91; PULSE 108; RESP 18; TEMP 97.7
--- NOTE | 2016-10-22 12:30 | GDS ---
[f rep st] DISCHARGE SUMMARY DIAGNOSES: 1. Acute alcoholic pancreatitis. 2. Alcohol abuse and withdrawal. 3. Severe esophagitis. 4. Chest pain. 5. Microcytic anemia. 6. Positive fecal occult blood screen. 7. Questionable history of coronary artery disease. 8. Homelessness. 9. Esophageal stricture, likely due to chronic inflammation. HOSPITAL COURSE: 1. A 55-year-old man who was admitted with alcoholic pancreatitis. He has been seen with the medic al medical interpreter present. From his pancreatitis, he has recovered. He is tolerating food wit hout nausea, vomiting, or worsening abdominal pain. He was treated conservatively with narcotics, b owel rest, and IV fluids. 2. He complained of some chest pain. I reviewed his chart thoroughly, and saw that he had an endos copy in June, which showed severe esophagitis with a likely benign stricture. He also had a nega tive EKG treadmill stress test in 2013. His chest pain was immediately relieved with a GI cocktail. He also has microcytic anemia as well as a positive FOBT. I have recommended that he restart a b. i.d. PPI, practice complete alcohol cessation, and followup with Dr. Fam, who performed his pr evious EGD. I have also started him on iron. Suspect that he has chronic blood loss from his sever e esophagitis, which is exacerbated by his ongoing alcohol abuse. He understands all this. I have very low suspicion for cardiac disease. He carries a diagnosis of coronary artery disease and was t aking an aspirin, though it is unclear if this is a true diagnosis or not. I have also recommended that he stop his aspirin, given his low blood loss. 3. Alcohol abuse and withdrawal: He has had mild withdrawal while he is here. He has been given [employer] for alcohol cessation. BILLING: I spent more than 30 minutes on the day of discharge coordinating care. /[id number]/MODL
== END 2016-10-22 13:21 | disposition home or self-care (01) | DRG 439 ==
LOC: F3E 12:44 → OBSVTOIN 15:07
PROVIDERS: ADMIT Internal Medicine; ATTEND Student in an Organized Health Care Education/Training Program
DX: K85.20 Alcohol induced acute pancreatitis without necrosis or infection (principal); F10.239 Alcohol dependence with withdrawal, unspecified; K20.9 Esophagitis, unspecified; K22.2 Esophageal obstruction; R19.5 Other fecal abnormalities; Z59.0 Homelessness
CPT/HCPCS: 96374; J2060; J2405; J3411

== ENCOUNTER 2016-11-08 16:41 | Emergency (ER) | payer SELFPAY ==
[2016-11-08] MEDS ORDERED: NS 1,000 ML IV ONE ×3 (16:54→18:39)
--- NOTE | 2016-11-08 16:54 | EDPHY ---
H & P Stated Complaint: Seen yesterday @ [facility] for same c/o;similiar sxs to past pancreatitis HPI/ROS: HPI CHIEF COMPLAINT: "I think I have pancreatitis" HISTORY OF PRESENT ILLNESS: This patient is a 55-year-old male significant past medical history for daily alcohol use, alcohol abuse, alcoholism, esophagitis, alcohol-induced pancreatitis, questionable coronary artery disease , anemia, esophageal stricture, who presents emergency room with nausea vomiting epigastric abdominal pain that radiates to his back as well as chest pain. Denies shortness of breath. Denies fever. He tells me this feels like his previous pancreatitis. Tells me his last drink was 2 days ago. He also tells me is [facility] where received IV fluids and nausea medicine was discharged states that he still has ongoing pain with nausea vomiting. This patient is Serbian-speaking only, lemon picker used. Past Medical History: Alcohol abuse, alcoholism, esophagitis, alcohol-induced pancreatitis, question coronary disease anemia, esophageal stricture Past Surgical History: No recent surgical history Social History: Homeless, Serbian-speaking only Family History: Noncontributory ROS REVIEW OF SYSTEMS: A comprehensive 10 point review of systems is otherwise negative aside from elements mentioned in the history of present illness. Exam Constitutional triage nursing summary reviewed, vital signs reviewed, awake/ alert. Eyes normal conjunctivae and sclera, EOMI, PERRLA. HENT normal inspection, atraumatic, moist mucus membranes, no epistaxis, neck supple/ no meningismus, no raccoon eyes. Respiratory clear to auscultation bilaterally, normal breath sounds, no respiratory distress, no wheezing. Cardiovascular rate normal, regular rhythm, no murmur, no edema, distal pulses normal. Gastrointestinal soft, tender palpation epigastric , no rebound, no guarding, normal bowel sounds, no distension, no pulsatile mass. Genitourinary no CVA tenderness. Musculoskeletal no midline vertebral tenderness, full range of motion, no calf swelling, no tenderness of extremities, no meningismus, good pulses, neurovascularly intact. Skin pink, warm, & dry, no rash, skin atraumatic. Neurologic awake, alert and oriented x 3, AAOx3, moves all 4 extremities equally, motor intact, sensory intact, CN II-XII intact, normal cerebellar, normal vision, normal speech. Psychiatric normal mood/affect. Heme/Lymph/Immune no lymphadenopathy. Differential diagnosis includes but is not limited to and in no particular order : Bowel obstruction, appendicitis, gallbladder disease, diverticulitis, colitis , enteritis, perforated viscus, gastritis, GERD, esophagitis, urinary tract infection, pyelonephritis, kidney stones Medical Decision Making: Plan for this patient IV establishment IV fluid bolus IV Zofran for nausea, IV Dilaudid for acute pain control will obtain blood work including lipase, ultrasound right upper quadrant an EKG. Re-evaluation: EKG interpretation by me on record in [employer] system. Impression the time of EKG 1706, this is sinus tachycardia rate of 113 no acute ischemia appreciated. Ultrasound of the normal gallbladder, bowel gas obscures the pancreas however no evidence of acute pancreatitis on ultrasound. The results of the study are David I discussed the results of this study with the radiologist Dr. Hernandez. 182: Alcohol level 296. 183: Re-examination at this time this patient does tell me he has epigastric abdominal pain has greatly improved with IV fluids and IV Dilaudid. He is not vomiting. His lipase is marginally elevated, re-examination is abdomen is soft. Mild tenderness epigastric. No vomiting. Alcohol level noted to be 296. EKG interpretation by me on record in [facility] system. Impression time of EKG 1933: This is sinus tachycardia rate of 101. No acute ischemic changes appreciated. Similar to previous EKG. 2012: Re-evaluation at this time patient resting comfortably no acute distress. 2nd troponin negative. 2nd EKG nonischemic. No acute changes. Patient requesting discharge. Mild epigastric pain on exam. He understands return emergency room if develops any worsening symptoms this includes worsening abdominal pain chest pain or shortness of breath. I highly recommend he refrain from drinking alcohol. He understands. Most likely cause of epigastric pain radiating into his chest is alcohol-induced pancreatitis. Esophagitis. Source: Patient - Personal History Current Tetanus Diphtheria and Acellular Pertussis (TDAP): Yes Tetanus Vaccine Date: 2012 - Medical/Surgical History Hx Asthma: No Hx Chronic Respiratory Disease: No Hx Diabetes: No Hx Cardiac Disease: No Hx Renal Disease: No Hx Cirrhosis: Yes Hx Alcoholism: Yes Hx HIV/AIDS: No Hx Splenectomy or Spleen Trauma: No Other PMH: PMH: Etoh abuse, cirrhosis, pancreatitis, gastritis, diverticulitis, homeless - Social History Smoking Status: Heavy smoker Constitutional: Initial Vital Signs Temperature (C) 36.5 C 11/08/16 16:45 Heart Rate 116 H 11/08/16 16:45 Respiratory Rate 18 11/08/16 16:45 Blood Pressure 146/94 H 11/08/16 16:45 O2 Sat (%) 94 11/08/16 16:45 O2 Delivery Mode Room Air Allergies/Adverse Reactions: No Known Allergies Allergy (Unverified 11/08/16 16:47) Home Medications: Medication Instructions Recorded Acetaminophen [Tylenol 325mg (*)] 325 mg PO DAILY PRN 04/07/14 Ferrous Sulfate [Ferrous Sulf 325 325 mg PO DAILY #30 tab 10/22/16 MG (*)] Pantoprazole Sodium [Protonix 40mg 40 mg PO BID #60 tab 10/22/16 (*)] Medical Decision Making - Diagnostics Imaging Results: Imaging Impressions Abdomen Ultrasound 11/08/16 17:02 IMPRESSION: 1. There is no evidence of cholelithiasis, cholecystitis, or bile duct dilatation. 2. Diffuse hepatic steatosis. 3. Suboptimal assessment of the pancreatic tail in this patient with clinically suspected pancreatitis. If there is further concern, contrast-enhanced CT imaging could be considered. Findings were discussed with Fletcher Pollard PA-C, who will convey the information to Shay Davis MD at 17:42, on 11/08/2016. Chest X-Ray 11/08/16 17:02 Impression: Normal. - Data Points Laboratory Results: Laboratory Results 11/08/16 17:05 11/08/16 17:05 11/08/16 11/08/16 11/08/16 19:35 18:25 17:05 WBC RBC Hgb Hct MCV MCH MCHC RDW Plt Count MPV Neut % (Auto) Lymph % (Auto) [place] % (Auto) Eos % (Auto) Baso % (Auto) Nucleat RBC Rel Count Absolute Neuts (auto) Absolute Lymphs (auto) Absolute Monos (auto) Absolute Eos (auto) Absolute Basos (auto) Absolute Nucleated RBC Immature Gran % Immature Gran # Platelet Estimate Polychromasia Hypochromasia Microcytic Cells Elliptocytes PT INR APTT Sodium 139 mEq/L mEq/L (134-144) Potassium 3.4 mEq/L L mEq/L (3.5-5.2) Chloride 103 mEq/L mEq/L (97-110) Carbon Dioxide 21 mEq/l L mEq/l (22-31) Anion Gap 15 mEq/L mEq/L (8-16) BUN 4 mg/dL L mg/dL (7-23) Creatinine 0.6 mg/dL L mg/dL (0.7-1.3) Estimated GFR > 60 Glucose 89 mg/dL mg/dL (70-100) Calcium 8.2 mg/dL L mg/dL (8.5-10.4) Total Bilirubin 0.6 mg/dL mg/dL (0.1-1.4) Conjugated Bilirubin 0.4 mg/dL mg/dL (0.0-0.5) Unconjugated Bilirubin 0.2 mg/dL mg/dL (0.0-1.1) AST 78 IU/L H IU/L (17-59) ALT 49 IU/L IU/L (21-72) Alkaline Phosphatase 119 IU/L IU/L (38-126) Troponin I 0.019 ng/mL ng/mL 0.016 ng/mL ng/mL (0-0.034) (0-0.034) Total Protein 7.4 g/dL g/dL (6.3-8.2) Albumin 4.1 g/dL g/dL (3.5-5.0) Lipase 604.0 IU/L H IU/L (23-300) Urine Color COLORLESS Urine Appearance CLEAR Urine pH 7.0 (5.0-7.5) Ur Specific [place] 1.005 (1.002-1.030) Urine Protein NEGATIVE (NEGATIVE) Urine Ketones TRACE H (NEGATIVE) Urine Blood NEGATIVE (NEGATIVE) Urine Nitrate NEGATIVE (NEGATIVE) Urine Bilirubin NEGATIVE (NEGATIVE) Urine Urobilinogen NEGATIVE EU EU (0.2-1.0) Ur Leukocyte Esterase NEGATIVE (NEGATIVE) Urine Glucose NEGATIVE (NEGATIVE) Urine Opiates Screen NEGATIVE (NEGATIVE) Urine Barbiturates NEGATIVE (NEGATIVE) Ur Phencyclidine Scrn NEGATIVE (NEGATIVE) Ur Amphetamine Screen NEGATIVE (NEGATIVE) U Benzodiazepines Scrn NEGATIVE (NEGATIVE) Urine Cocaine Screen NEGATIVE (NEGATIVE) U Marijuana (THC) Screen NEGATIVE (NEGATIVE) Ethyl Alcohol 296 mg/dL H mg/dL (0-10) 11/08/16 11/08/16 17:05 17:05 WBC 7.65 10^3/uL 10^3/uL (3.80-9.50) RBC 4.79 10^6/uL 10^6/uL (4.40-6.38) Hgb 11.0 g/dL L g/dL (13.7-17.5) Hct 35.5 % L % (40.0-51.0) MCV 74.1 fL L fL (81.5-99.8) MCH 23.0 pg L pg (27.9-34.1) MCHC 31.0 g/dL L g/dL (32.4-36.7) RDW 24.3 % H % (11.5-15.2) Plt Count 256 10^3/uL 10^3/uL (150-400) MPV 10.0 fL fL (8.7-11.7) Neut % (Auto) 72.6 % % (39.3-74.2) Lymph % (Auto) 16.7 % % (15.0-45.0) Dent % (Auto) 9.2 % % (4.5-13.0) Eos % (Auto) 0.3 % L % (0.6-7.6) Baso % (Auto) 0.9 % % (0.3-1.7) Nucleat RBC Rel Count 0.0 % % (0.0-0.2) Absolute Neuts (auto) 5.56 10^3/uL 10^3/uL (1.70-6.50) Absolute Lymphs (auto) 1.28 10^3/uL 10^3/uL (1.00-3.00) Absolute Monos (auto) 0.70 10^3/uL 10^3/uL (0.30-0.80) Absolute Eos (auto) 0.02 10^3/uL L 10^3/uL (0.03-0.40) Absolute Basos (auto) 0.07 10^3/uL 10^3/uL (0.02-0.10) Absolute Nucleated RBC 0.00 10^3/uL 10^3/uL (0-0.01) Immature Gran % 0.3 % % (0.0-1.1) Immature Gran # 0.02 10^3/uL 10^3/uL (0.00-0.10) Platelet Estimate ADEQUATE (ADEQ) Polychromasia 1+ H Hypochromasia 1+ H Microcytic Cells 1+ H Elliptocytes 1+ H PT 14.6 SEC SEC (12.0-15.0) INR 1.15 (0.83-1.16) APTT 31.9 SEC SEC (23.0-38.0) Sodium Potassium Chloride Carbon Dioxide Anion Gap BUN Creatinine Estimated GFR Glucose Calcium Total Bilirubin Conjugated Bilirubin Unconjugated Bilirubin AST ALT Alkaline Phosphatase Troponin I Total Protein Albumin Lipase Urine Color Urine Appearance Urine pH Ur Specific [place] Urine Protein Urine Ketones Urine Blood Urine Nitrate Urine Bilirubin Urine Urobilinogen Ur Leukocyte Esterase Urine Glucose Urine Opiates Screen Urine Barbiturates Ur Phencyclidine Scrn Ur Amphetamine Screen U Benzodiazepines Scrn Urine Cocaine Screen U Marijuana (THC) Screen Ethyl Alcohol Medications Given: Discontinued Medications Hydromorphone HCl (Dilaudid) 1 mg IVP EDNOW ONE Stop: 11/08/16 17:04 Last Admin: 11/08/16 17:15 Dose: 1 mg Sodium Chloride (Ns) 1,000 mls @ 0 mls/hr IV ONCE ONE PRN Reason: Wide Open Stop: 11/08/16 16:55 Last Admin: 11/08/16 17:15 Dose: 1,000 mls Sodium Chloride (Ns) 1,000 mls @ 0 mls/hr IV ONCE ONE PRN Reason: Wide Open Stop: 11/08/16 17:04 Last Admin: 11/08/16 17:15 Dose: 1,000 mls Sodium Chloride (Ns) 1,000 mls @ 0 mls/hr IV ONCE ONE PRN Reason: Wide Open Stop: 11/08/16 18:40 Last Admin: 11/08/16 18:40 Dose: 1,000 mls Ondansetron HCl (Zofran) 4 mg IVP EDNOW ONE Stop: 11/08/16 17:04 Last Admin: 11/08/16 17:15 Dose: 4 mg Departure - Departure Disposition: Home, Routine, Self-Care Clinical Impression: Alcohol intoxication Qualifiers: Complication of substance-induced condition: uncomplicated Qualified Code(s): F10.120 - Alcohol abuse with intoxication, uncomplicated Pancreatitis Qualifiers: Chronicity: acute Pancreatitis type: alcohol induced Acute pancreatitis complication: unspecified Qualified Code(s): K85.20 - Alcohol induced acute pancreatitis without necrosis or infection Condition: Good Instructions: Pancreatitis (ED), Alcohol Intoxication (ED) Referrals: NONE *PRIMARY CARE P,. [Primary Care Provider] - As per Instructions
[2016-11-08] MEDS ORDERED: ONDANSETRON 4 MG/2 ML VIAL IVP ONE (17:03)
[2016-11-08] MEDS ORDERED: HYDROmorphONE/DILAUDID 1 MG/ML SYR IVP ONE (17:03)
--- NOTE | 2016-11-08 17:09 | CPEKG ---
Heart Rate: 113 RR Interval: 531 P-R Interval: 156 QRSD Interval: 76 QT Interval: 352 QTC Interval: 483 P [place]: 48 QRS [place]: 25 T Wave [place]: 52 EKG Severity - BORDERLINE ECG - EKG Impression: SINUS TACHYCARDIA EKG Impression: BORDERLINE PROLONGED QT INTERVAL Electronically Signed By: Shay Davis 08-Nov-2016 21:25:52
[2016-11-08 17:16] LABS: % IMMATURE GRANULYOCYTES 0.3 % (0.0-1.1); ABSOLUTE IMMATURE GRANULOCYTES 0.02 10^3/uL (0.00-0.10); ADD DIFF? NO; ADD MORPH? YES; ADD SCAN? NO; ATYPICAL LYMPHOCYTE FLAG 0 (0-99); FRAGMENT RBC FLAG 40 (0-99); HEMATOCRIT 35.5 % (40.0-51.0); LEFT SHIFT FLG 0 (0-99); LIPEMIA HEMOLYSIS FLAG 80 (0-99); MEAN CELL VOLUME 74.1 fL (81.5-99.8); PLATELET CLUMPS FLAG 0 (0-99); PLATELET COUNT 256 10^3/uL (150-400); RED BLOOD CELL COUNT 4.79 10^6/uL (4.40-6.38)
[2016-11-08 17:19] LABS: RED CELL DISTRIBUTION WIDTH 24.3 % (11.5-15.2)
[2016-11-08 17:29] LABS: ALANINE AMINOTRANSFERASE 49 IU/L (21-72); ALBUMIN 4.1 g/dL (3.5-5.0); ALKALINE PHOSPHATASE 119 IU/L (38-126); ANION GAP 15 mEq/L (8-16); ASPARTATE AMINOTRANSFERASE 78 IU/L (17-59); BILIRUBIN,TOTAL 0.6 mg/dL (0.1-1.4); BILIRUBIN-CONJUGATED 0.4 mg/dL (0.0-0.5); BILIRUBIN-UNCONJUGATED 0.2 mg/dL (0.0-1.1); CALCIUM 8.2 mg/dL (8.5-10.4); CARBON DIOXIDE 21 mEq/l (22-31); CHLORIDE 103 mEq/L (97-110); CREATININE 0.6 mg/dL (0.7-1.3); ETHANOL SERUM 296 mg/dL (0-10); GLOMERULAR FILTRATION RATE > 60; GLUCOSE 89 mg/dL (70-100); POTASSIUM 3.4 mEq/L (3.5-5.2); SODIUM 139 mEq/L (134-144); TOTAL PROTEIN 7.4 g/dL (6.3-8.2)
[2016-11-08 17:34] LABS: INR 1.15 (0.83-1.16); PROTIME(PATIENT) 14.6 SEC (12.0-15.0)
[2016-11-08 17:35] LABS: APTT 31.9 SEC (23.0-38.0)
[2016-11-08 17:40] LABS: TROPONIN I 0.016 ng/mL (0-0.034)
[2016-11-08 17:56] LABS: HYPOCHROMIA 1+; MICROCYTES 1+; PLATELET ESTIMATE ADEQUATE (ADEQ); POLYCHROMASIA 1+
[2016-11-08 17:57] LABS: ELLIPTOCYTES 1+
[2016-11-08 18:37] LABS: COLOR COLORLESS; LEUKOCYTE ESTERASE,URINE NEGATIVE (NEGATIVE); NITRITE,URINE NEGATIVE (NEGATIVE)
--- NOTE | 2016-11-08 19:37 | CPEKG ---
Heart Rate: 101 RR Interval: 594 P-R Interval: 152 QRSD Interval: 68 QT Interval: 356 QTC Interval: 462 P [place]: 47 QRS [place]: 14 T Wave [place]: 39 EKG Severity - OTHERWISE NORMAL ECG - EKG Impression: SINUS TACHYCARDIA Electronically Signed By: Shay Davis 08-Nov-2016 21:25:52
[2016-11-08 20:33] VITALS: BP 163/104; PULSE 94; RESP 18; TEMP 98.1; O2SAT 97
== END 2016-11-08 20:38 | disposition home or self-care (01) ==
DX: K85.20 Alcohol induced acute pancreatitis without necrosis or infection (principal); F10.120 Alcohol abuse with intoxication, uncomplicated; F17.200 Nicotine dependence, unspecified, uncomplicated
CPT/HCPCS: 80305; 96374; G0480; J1170; J2405

== ENCOUNTER 2016-11-19 07:36 | Emergency (ER) | payer MEDICAID ==
[~2016-11-19 07:36] MED LIST: PANTOPRAZOLE SODIUM 40 MG TAB PO SCH
[2016-11-19 07:43] VITALS: TEMP 98.2
--- NOTE | 2016-11-19 07:47 | EDPHY ---
H & P Time Seen by Provider: 11/19/16 07:46 HPI/ROS: CHIEF COMPLAINT: Epigastric pain HISTORY OF PRESENT ILLNESS: The patient is a 56-year-old male with history of alcohol induced pancreatitis, daily alcohol use, anemia, and esophagitis, who presents with severe, constant, epigastric pain that started yesterday. His pain radiates to his back. He states he has experienced this pain in the past. He has associated nausea with 1 episode of vomiting. The patient ran out of Protonix recently. He last consumed alcohol yesterday. He is unable to eat due to pain. He denies fever or diarrhea. REVIEW OF SYSTEMS: A comprehensive 10 point review of systems is otherwise negative aside from elements mentioned in the history of present illness. Past Medical/Surgical History: Alcohol abuse, alcohol induced pancreatitis, esophagitis, esophageal stricture, anemia, questionable CAD. Social History: Israeli speaking only. Homeless. Smoking Status: Heavy smoker Physical Exam: General Appearance: Alert, tremulous Eyes: Pupils equal and round, no conjunctival pallor or injection ENT, Mouth: Mucous membranes moist Neck: Normal inspection Respiratory: Lungs are clear to auscultation Cardiovascular: Regular rate and rhythm Gastrointestinal: Abdomen is soft, epigastric tenderness Neurological: A&O, nonfocal, normal gait Skin: Warm and dry, no rash Extremities: Nontender, no pedal edema Psychiatric: Mood and affect normal Constitutional: Initial Vital Signs Temperature (C) 36.8 C 11/19/16 07:41 Heart Rate 114 H 11/19/16 07:41 Respiratory Rate 20 11/19/16 07:41 Blood Pressure 166/88 H 11/19/16 07:41 O2 Sat (%) 97 11/19/16 07:41 O2 Delivery Mode Room Air Allergies/Adverse Reactions: No Known Allergies Allergy (Verified 11/19/16 07:40) Home Medications: Medication Instructions Recorded Pantoprazole Sodium [Protonix 40mg 40 mg PO DAILY #30 tab 11/19/16 (*)] Medical Decision Making ED Course/Re-evaluation: The patient has a history of alcohol induced pancreatitis, esophagitis, and daily alcohol consumption, presenting with severe, constant, epigastric pain. Plan for GI cocktail, Protonix 40 mg IV and IV fluids. I will check liver function, lipase, CBC, and BMP. 8:55 a.m.: The patient is feeling much better after the GI cocktail, his pain has resolved. Patient's symptoms likely due to prior history of esophagitis as seen on previous EEG. Plan to discharge home with Protonix. Abdomen is soft and nontender. Differential Diagnosis: Differential diagnosis includes though it is not limited to appendicitis, cholecystitis, diverticulitis, pyelonephritis, bowel perforation, small bowel obstruction. - Data Points Laboratory Results: Laboratory Results 11/19/16 08:40 11/19/16 08:40 11/19/16 11/19/16 08:40 08:40 WBC 6.84 10^3/uL 10^3/uL (3.80-9.50) RBC 4.23 10^6/uL L 10^6/uL (4.40-6.38) Hgb 9.8 g/dL L g/dL (13.7-17.5) Hct 31.7 % L % (40.0-51.0) MCV 74.9 fL L fL (81.5-99.8) MCH 23.2 pg L pg (27.9-34.1) MCHC 30.9 g/dL L g/dL (32.4-36.7) RDW 25.1 % H % (11.5-15.2) Plt Count 228 10^3/uL 10^3/uL (150-400) MPV 9.5 fL fL (8.7-11.7) Neut % (Auto) 64.1 % % (39.3-74.2) Lymph % (Auto) 14.6 % L % (15.0-45.0) [place] % (Auto) 19.7 % H % (4.5-13.0) Eos % (Auto) 0.4 % L % (0.6-7.6) Baso % (Auto) 0.9 % % (0.3-1.7) Nucleat RBC Rel Count 0.0 % % (0.0-0.2) Absolute Neuts (auto) 4.38 10^3/uL 10^3/uL (1.70-6.50) Absolute Lymphs (auto) 1.00 10^3/uL 10^3/uL (1.00-3.00) Absolute Monos (auto) 1.35 10^3/uL H 10^3/uL (0.30-0.80) Absolute Eos (auto) 0.03 10^3/uL 10^3/uL (0.03-0.40) Absolute Basos (auto) 0.06 10^3/uL 10^3/uL (0.02-0.10) Absolute Nucleated RBC 0.00 10^3/uL 10^3/uL (0-0.01) Immature Gran % 0.3 % % (0.0-1.1) Immature Gran # 0.02 10^3/uL 10^3/uL (0.00-0.10) Platelet Estimate ADEQUATE (ADEQ) Large Platelets PRESENT H Hypochromasia 1+ H Tear Drop Cells 1+ H Oval Macrocytes 1+ H Elliptocytes 1+ H Sodium 137 mEq/L mEq/L (134-144) Potassium 3.7 mEq/L mEq/L (3.5-5.2) Chloride 105 mEq/L mEq/L (97-110) Carbon Dioxide 21 mEq/l L mEq/l (22-31) Anion Gap 11 mEq/L mEq/L (8-16) BUN 8 mg/dL mg/dL (7-23) Creatinine 0.4 mg/dL L mg/dL (0.7-1.3) Estimated GFR > 60 Glucose 71 mg/dL mg/dL (70-100) Calcium 8.1 mg/dL L mg/dL (8.5-10.4) Total Bilirubin 0.5 mg/dL mg/dL (0.1-1.4) Conjugated Bilirubin 0.3 mg/dL mg/dL (0.0-0.5) Unconjugated Bilirubin 0.2 mg/dL mg/dL (0.0-1.1) AST 44 IU/L IU/L (17-59) ALT 49 IU/L IU/L (21-72) Alkaline Phosphatase 75 IU/L IU/L (38-126) Total Protein 6.5 g/dL g/dL (6.3-8.2) Albumin 3.6 g/dL g/dL (3.5-5.0) Lipase 385.0 IU/L H IU/L (23-300) Medications Given: Discontinued Medications Al Hydroxide/Mg Hydroxide (Maalox Susp) 30 ml PO ONCE ONE Stop: 11/19/16 08:01 Last Admin: 11/19/16 08:24 Dose: 30 ml Hyoscyamine Sulfate (Levsin, Hyomax-Sl) 0.25 mg PO ONCE ONE Stop: 11/19/16 08:01 Last Admin: 11/19/16 08:23 Dose: 0.25 mg Sodium Chloride (Ns) 1,000 mls @ 0 mls/hr IV ONCE ONE PRN Reason: Wide Open Stop: 11/19/16 07:52 Last Admin: 11/19/16 08:23 Dose: 1,000 mls Pantoprazole Sodium 40 mg/ (Sodium Chloride) 100 mls @ 200 mls/hr IV EDNOW ONE Stop: 11/19/16 08:30 Last Admin: 11/19/16 08:24 Dose: 100 mls Lidocaine (Lidocaine 2% Viscous) 15 ml PO ONCE ONE Stop: 11/19/16 08:01 Last Admin: 11/19/16 08:24 Dose: 15 ml Ondansetron HCl (Zofran) 4 mg IVP EDNOW ONE Stop: 11/19/16 08:01 Last Admin: 11/19/16 08:24 Dose: 4 mg Departure - Departure Disposition: Home, Routine, Self-Care Clinical Impression: Esophagitis Condition: Good Instructions: Esophagitis (ED) Additional Instructions: Please take Protonix as directed to help with esophageal pain. Followup with your primary care physician in 2-3 days. Por favor tome Protonix hiader se indica para ayudarle con el dolor esofagico. Felicitas un seguimiento con mead doctor de cuidado medico. Referrals: [facility],. [Clinic] - 2-3 days, call for appt. Prescriptions: Pantoprazole Sodium [Protonix 40mg (*)] 40 mg PO DAILY #30 tab Report Scribed for: Lalita Metz Report Scribed by: Dorothy Zuleta Date of Report: 11/19/16 Time of Report: 07:47 Physician Review and Approval Statement: 11/19/16 07:47 Portions of this note were transcribed by a medical charge entry specialist. I personally performed the history, physical exam, and medical decision-making; and confirmed the accuracy of the information in the transcribed note.
[2016-11-19] MEDS ORDERED: NS 1,000 ML IV ONE (07:51)
[2016-11-19] MEDS ORDERED: MAG HYDROX/AL HYDROX/SIMETH 30 ML UDCUP PO ONE (08:00)
[2016-11-19] MEDS ORDERED: HYOSCYAMINE SULFATE 0.125 MG TAB PO ONE (08:00)
[2016-11-19] MEDS ORDERED: ONDANSETRON 4 MG/2 ML VIAL IVP ONE (08:00)
[2016-11-19] MEDS ORDERED: LIDOCAINE 2% VISCOUS 15 ML UDCUP PO ONE (08:00)
[2016-11-19] MEDS ORDERED: PANTOPRAZOLE SODIUM 40 MG in NS 100 ML IV ONE (08:01)
[2016-11-19 08:46] VITALS: BP 158/103; PULSE 94; RESP 18; O2SAT 98
[2016-11-19 08:50] LABS: % IMMATURE GRANULYOCYTES 0.3 % (0.0-1.1); ABSOLUTE IMMATURE GRANULOCYTES 0.02 10^3/uL (0.00-0.10); ADD DIFF? NO; ADD MORPH? YES; ADD SCAN? NO; ATYPICAL LYMPHOCYTE FLAG 10 (0-99); FRAGMENT RBC FLAG 20 (0-99); HEMATOCRIT 31.7 % (40.0-51.0); HEMOGLOBIN 9.8 g/dL (13.7-17.5); LEFT SHIFT FLG 0 (0-99); LIPEMIA HEMOLYSIS FLAG 80 (0-99); MEAN CELL HEMOGLOBIN 23.2 pg (27.9-34.1); MEAN CELL HEMOGLOBIN CONCENTR. 30.9 g/dL (32.4-36.7); MEAN CELL VOLUME 74.9 fL (81.5-99.8); MEAN PLATELET VOLUME 9.5 fL (8.7-11.7); PLATELET CLUMPS FLAG 10 (0-99); PLATELET COUNT 228 10^3/uL (150-400); RED BLOOD CELL COUNT 4.23 10^6/uL (4.40-6.38)
[2016-11-19 08:52] LABS: RED CELL DISTRIBUTION WIDTH 25.1 % (11.5-15.2)
[2016-11-19 09:13] LABS: ALANINE AMINOTRANSFERASE 49 IU/L (21-72); ALBUMIN 3.6 g/dL (3.5-5.0); ALKALINE PHOSPHATASE 75 IU/L (38-126); ANION GAP 11 mEq/L (8-16); ASPARTATE AMINOTRANSFERASE 44 IU/L (17-59); BILIRUBIN,TOTAL 0.5 mg/dL (0.1-1.4); BILIRUBIN-CONJUGATED 0.3 mg/dL (0.0-0.5); BILIRUBIN-UNCONJUGATED 0.2 mg/dL (0.0-1.1); CALCIUM 8.1 mg/dL (8.5-10.4); CARBON DIOXIDE 21 mEq/l (22-31); CHLORIDE 105 mEq/L (97-110); CREATININE 0.4 mg/dL (0.7-1.3); GLOMERULAR FILTRATION RATE > 60; GLUCOSE 71 mg/dL (70-100); POTASSIUM 3.7 mEq/L (3.5-5.2); SODIUM 137 mEq/L (134-144); TOTAL PROTEIN 6.5 g/dL (6.3-8.2)
[2016-11-19 09:19] LABS: ELLIPTOCYTES 1+; HYPOCHROMIA 1+; LARGE PLATELETS PRESENT; MACROCYTES 1+; PLATELET ESTIMATE ADEQUATE (ADEQ)
[2016-11-19] MEDS ORDERED: ACETAMINOPHEN 325 MG TAB ONE (09:59)
== END 2016-11-19 10:05 | disposition home or self-care (01) ==
DX: K20.9 Esophagitis, unspecified (principal); F17.200 Nicotine dependence, unspecified, uncomplicated
CPT/HCPCS: 96365; J2405

== ENCOUNTER 2016-11-19 11:45 | Emergency (ER) | payer MEDICAID ==
[2016-11-19] MEDS ORDERED: NS 1,000 ML IV ONE ×2 (11:55→13:04)
--- NOTE | 2016-11-19 11:57 | CPEKG ---
Heart Rate: 123 RR Interval: 488 P-R Interval: 132 QRSD Interval: 78 QT Interval: 324 QTC Interval: 464 P [place]: 46 QRS [place]: 20 T Wave [place]: 41 EKG Severity - OTHERWISE NORMAL ECG - EKG Impression: SINUS TACHYCARDIA Electronically Signed By: Lalita Metz 19-Nov-2016 15:01:05
--- NOTE | 2016-11-19 12:02 | EDPHY ---
H & P Time Seen by Provider: 11/19/16 11:45 HPI/ROS: CHIEF COMPLAINT: Found down HISTORY OF PRESENT ILLNESS: 56-year-old male brought into the emergency department by EMS after he was found down outside liquor store in [place]. The patient does not know what happened. No reported trauma. The patient has a history of alcoholic induced pancreatitis and was seen earlier this morning in the emergency department with epigastric abdominal pain. The patient states that he feels nauseous and has been vomiting. He does not remember being here earlier this morning. States that he rarely drinks alcohol. He has however had this same epigastric abdominal pain in the past. Denies any other pain in his chest or difficulty breathing. Denies neck or back pain. He denies any other substance abuse. No reported trauma. Denies diarrhea. REVIEW OF SYSTEMS: Constitutional: No fever, no chills. Eyes: No double or blurry vision. ENT: No sore throat. Respiratory: No cough, no shortness of breath. Cardiac: No chest pain. Gastrointestinal: Abdominal pain, vomiting. No diarrhea. Genitourinary: No dysuria. Musculoskeletal: No neck or back pain. Skin: No rashes. Neurological: No headache. Past Medical/Surgical History: Alcoholism, alcohol induced pancreatitis Social History: Homeless Smoking Status: Heavy smoker Physical Exam: General Appearance: Alert, no distress. Smells strongly of alcohol. He Lao -speaking only with senior restaurant manager at bedside. Eyes: Pupils equal and round. Extraocular motions are all intact. ENT: Mouth: Mucous membranes dry. Superficial abrasion to the lateral aspect of the left side of his tongue. No dental injury or malocclusion. Respiratory: No wheezing, rhonchi, or rales, lungs are clear to auscultation. Cardiovascular: Regular rate and rhythm. Tachycardic. Gastrointestinal: Abdomen is soft and nontender, no masses, no rebound or guarding, bowel sounds normal. Neurological: Alert and oriented only to person. Confused on place and time. Unable to test remainder of neurologic evaluation as the patient is uncooperative. Skin: Warm and dry, no rashes. Musculoskeletal: Nontender to palpate along the cervical, thoracic or lumbar spine. Neck is supple. Extremities: Full range of motion and no peripheral edema. Psychiatric: No agitation. Constitutional: Initial Vital Signs Temperature (C) 38.6 C H 11/19/16 11:45 Heart Rate 140 H 11/19/16 11:45 Respiratory Rate 20 11/19/16 11:45 Blood Pressure 162/98 H 11/19/16 11:45 O2 Sat (%) 94 11/19/16 11:45 O2 Delivery Mode Room Air Allergies/Adverse Reactions: No Known Allergies Allergy (Verified 11/19/16 07:40) Home Medications: Medication Instructions Recorded Pantoprazole Sodium [Protonix 40mg 40 mg PO DAILY #30 tab 11/19/16 (*)] Medical Decision Making - Diagnostics Imaging Results: Imaging Impressions Head CT 11/19/16 13:48 Impression: 1. No acute intracranial findings. If symptoms persist and clinical suspicion warrants, consider MRI. 2. Diffuse cerebral atrophy with periventricular and subcortical low attenuation consistent with chronic microvascular ischemic gliosis. 3. Moderate mucus membrane thickening in the sinuses. 4. Periodontal disease. Findings discussed with Marleny Michele PA-C on November 19, 2016 at 1531 hours. Imaging: Discussed imaging studies w/ outbound call center representative Radiologist ED Course/Re-evaluation: 56-year-old male presents to the emergency department by ambulance found down. The patient is confused. Laboratory studies are unremarkable. The patient was given 1 mg of Ativan to prevent seizure. Patient was confused initially and then became more lucid. Clinically I think he was postictal and likely had an alcohol withdrawal seizure. Looking back at his past medical history, I have not seen history of alcohol withdrawal seizure in the past. The patient does however have a long history of alcoholism as well as alcohol-related pancreatitis. He did run out of his Protonix recently. He was given a dose of Protonix IV in the emergency department at his visit earlier today. Given his possible first-time seizure, CT imaging of the head was ordered which was unremarkable showing nothing acute. The [facility] is expecting this patient back. They are requesting prepack of Librium. With the help of the senior restaurant manager, the patient agrees to go to the [facility]. Differential Diagnosis: Seizure including but not limited to electrolyte abnormality, alcohol withdrawal , medication noncompliance, head injury, and breakthrough seizure. - Data Points Laboratory Results: Laboratory Results 11/19/16 12:00 11/19/16 12:00 11/19/16 11/19/16 12:00 12:00 WBC 7.29 10^3/uL 10^3/uL (3.80-9.50) RBC 4.44 10^6/uL 10^6/uL (4.40-6.38) Hgb 10.3 g/dL L g/dL (13.7-17.5) Hct 33.4 % L % (40.0-51.0) MCV 75.2 fL L fL (81.5-99.8) MCH 23.2 pg L pg (27.9-34.1) MCHC 30.8 g/dL L g/dL (32.4-36.7) RDW 25.2 % H % (11.5-15.2) Plt Count 257 10^3/uL 10^3/uL (150-400) MPV 9.6 fL fL (8.7-11.7) Neut % (Auto) 65.0 % % (39.3-74.2) Lymph % (Auto) 14.8 % L % (15.0-45.0) [place] % (Auto) 18.8 % H % (4.5-13.0) Eos % (Auto) 0.3 % L % (0.6-7.6) Baso % (Auto) 0.7 % % (0.3-1.7) Nucleat RBC Rel Count 0.0 % % (0.0-0.2) Absolute Neuts (auto) 4.74 10^3/uL 10^3/uL (1.70-6.50) Absolute Lymphs (auto) 1.08 10^3/uL 10^3/uL (1.00-3.00) Absolute Monos (auto) 1.37 10^3/uL H 10^3/uL (0.30-0.80) Absolute Eos (auto) 0.02 10^3/uL L 10^3/uL (0.03-0.40) Absolute Basos (auto) 0.05 10^3/uL 10^3/uL (0.02-0.10) Absolute Nucleated RBC 0.00 10^3/uL 10^3/uL (0-0.01) Immature Gran % 0.4 % % (0.0-1.1) Immature Gran # 0.03 10^3/uL 10^3/uL (0.00-0.10) Platelet Estimate ADEQUATE (ADEQ) Large Platelets PRESENT H Hypochromasia 1+ H Elliptocytes 1+ H Sodium 137 mEq/L mEq/L (134-144) Potassium 3.8 mEq/L mEq/L (3.5-5.2) Chloride 103 mEq/L mEq/L (97-110) Carbon Dioxide 18 mEq/l L mEq/l (22-31) Anion Gap 16 mEq/L mEq/L (8-16) BUN 7 mg/dL mg/dL (7-23) Creatinine 0.5 mg/dL L mg/dL (0.7-1.3) Estimated GFR > 60 Glucose 135 mg/dL H D mg/dL (70-100) Calcium 8.6 mg/dL mg/dL (8.5-10.4) Ethyl Alcohol < 10 mg/dL mg/dL (0-10) Medications Given: Discontinued Medications Sodium Chloride (Ns) 1,000 mls @ 0 mls/hr IV ONCE ONE PRN Reason: Wide Open Stop: 11/19/16 11:56 Last Admin: 11/19/16 12:20 Dose: 1,000 mls Sodium Chloride (Ns) 1,000 mls @ 0 mls/hr IV ONCE ONE PRN Reason: Wide Open Stop: 11/19/16 13:05 Last Admin: 11/19/16 13:15 Dose: 1,000 mls Lorazepam (Ativan Injection) 1 mg IVP EDNOW ONE Stop: 11/19/16 12:19 Last Admin: 11/19/16 12:20 Dose: 1 mg Departure - Departure Disposition: Home, Routine, Self-Care Clinical Impression: Alcoholism, Seizure Condition: Good Instructions: Nonepileptic Seizures (ED), Abuse of Alcohol (ED) Additional Instructions: You likely had a seizure prior to coming to the hospital. You should follow up with a neurologist as soon as possible. You should not drive a car, climb on ladders, go swimming, or do any other dangerous activity until cleared by the neurologist. you are being discharged to the addiction recovery Center for your alcoholism. Your given a take-home pack of Librium that they will dispense to you at the addiction recovery Center. Referrals: [facility],. [Clinic] - As per Instructions [facility] [Outside] - As per Instructions
[2016-11-19] MEDS ORDERED: LORazepam 2 MG/ML INJ IVP ONE (12:18)
[2016-11-19 12:27] LABS: % IMMATURE GRANULYOCYTES 0.4 % (0.0-1.1); ABSOLUTE IMMATURE GRANULOCYTES 0.03 10^3/uL (0.00-0.10); ADD DIFF? NO; ADD MORPH? YES; ADD SCAN? NO; ATYPICAL LYMPHOCYTE FLAG 0 (0-99); FRAGMENT RBC FLAG 40 (0-99); HEMATOCRIT 33.4 % (40.0-51.0); HEMOGLOBIN 10.3 g/dL (13.7-17.5); LEFT SHIFT FLG 0 (0-99); LIPEMIA HEMOLYSIS FLAG 80 (0-99); MEAN CELL HEMOGLOBIN 23.2 pg (27.9-34.1); MEAN CELL HEMOGLOBIN CONCENTR. 30.8 g/dL (32.4-36.7); MEAN CELL VOLUME 75.2 fL (81.5-99.8); MEAN PLATELET VOLUME 9.6 fL (8.7-11.7); PLATELET CLUMPS FLAG 10 (0-99); PLATELET COUNT 257 10^3/uL (150-400); RED BLOOD CELL COUNT 4.44 10^6/uL (4.40-6.38)
[2016-11-19 12:28] LABS: RED CELL DISTRIBUTION WIDTH 25.2 % (11.5-15.2)
[2016-11-19 12:41] LABS: ANION GAP 16 mEq/L (8-16); CALCIUM 8.6 mg/dL (8.5-10.4); CARBON DIOXIDE 18 mEq/l (22-31); CHLORIDE 103 mEq/L (97-110); CREATININE 0.5 mg/dL (0.7-1.3); ETHANOL SERUM < 10 mg/dL (0-10); GLOMERULAR FILTRATION RATE > 60; GLUCOSE 135 mg/dL (70-100); POTASSIUM 3.8 mEq/L (3.5-5.2); SODIUM 137 mEq/L (134-144)
[2016-11-19 12:54] LABS: ELLIPTOCYTES 1+; HYPOCHROMIA 1+; LARGE PLATELETS PRESENT; PLATELET ESTIMATE ADEQUATE (ADEQ)
[2016-11-19 17:38] VITALS: BP 159/95; PULSE 97; RESP 16; O2SAT 96
[2016-11-19] MEDS ORDERED: CHLORDIAZEPOXIDE 25MG PREPK#6 BTL TAKEHOME ONE (17:48)
[2016-11-19 18:56] VITALS: TEMP 98.2
== END 2016-11-19 18:01 | disposition home or self-care (01) ==
LOC: EDUNIT#
DX: F10.20 Alcohol dependence, uncomplicated (principal); R56.9 Unspecified convulsions; F17.200 Nicotine dependence, unspecified, uncomplicated
CPT/HCPCS: 96374; G0480; J2060

== ENCOUNTER 2017-01-12 20:42 | Emergency (ER) | payer MEDICAID ==
[2017-01-12] MEDS ORDERED: CHLORDIAZEPOXIDE 25MG PREPK#6 BTL TAKEHOME ONE (20:55)
--- NOTE | 2017-01-12 20:55 | EDPHY ---
H & P Time Seen by Provider: 01/12/17 20:45 HPI/ROS: CHIEF COMPLAINT: Chest pain HISTORY OF PRESENT ILLNESS: This is a 56-year-old male who has been to our emergency department multiple times this year with various complaints. He has a history of alcohol abuse and alcoholic pancreatitis. He was reportedly evaluated in [place] this evening and transported to the [facility]. The [facility] sent him to our emergency department with a request for Librium. I spoke with [facility] Emergency Department and they did not see Mr. Cerda today. It seems he is here for medical clearance for the Addiction [facility]. I interviewed him a 2nd time, with the help of the Cameroonian historical interpreter , and he reports some chest pressure that has been long-standing. He is unable to provide specific details of this complaint. He denies abdominal pain. He has not had nausea and vomiting. 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 REVIEW OF SYSTEMS: A ten point review of systems was performed and is negative with the exception of the items mentioned in the HPI. - Personal History Tetanus Vaccine Date: 2012 - Medical/Surgical History Hx Asthma: No Hx Chronic Respiratory Disease: No Hx Diabetes: No Hx Cardiac Disease: No Hx Renal Disease: No Hx Cirrhosis: Yes Hx Alcoholism: Yes Hx HIV/AIDS: No Hx Splenectomy or Spleen Trauma: No Other PMH: PMH: Etoh abuse, cirrhosis, pancreatitis, gastritis, diverticulitis, homeless - Social History Smoking Status: Heavy smoker Alcohol Use: Heavy Additional Social History: He is reportedly homeless. He tells me that he is living in the [facility]. He has worked as an automotive wholesale parts advisor. - Physical Exam Exam: General Appearance: Alert. Vital signs reviewed. Discheveled. Heart rate 118. Blood pressure 128/80. Normal pulse ox on room air. Eyes: Pupils equal and round, bilateral conjunctival injection, no discharge. Anicteric. ENT, Mouth: Mucous membranes are moist, no oropharyngeal erythema or edema. Neck: No lymphadenopathy, supple. Respiratory: Lungs with wheezing, good air exchange. Cardiovascular: Tachycardic; no murmur, rub, or gallop. Gastrointestinal: Abdomen is soft and nontender, no masses or organomegaly, bowel sounds normal. Skin: Warm and dry, no rashes on exposed skin, normal color. Back: Nontender to palpation over the thoracolumbar spine. No CVAT. Extremities: No lower extremity edema, no calf tenderness or swelling. Neurological: Alert and oriented. Moving all four extremities easily and equally. JEAN. EOMI. Facial expressions symmetric. Psychiatric: Normal affect. No agitation. Constitutional: Initial Vital Signs Temperature (C) 36.6 C 01/12/17 20:45 Heart Rate 118 H 01/12/17 20:45 Respiratory Rate 18 01/12/17 20:45 Blood Pressure 128/80 H 01/12/17 20:45 O2 Sat (%) 94 01/12/17 20:45 O2 Delivery Mode Room Air Allergies/Adverse Reactions: No Known Allergies Allergy (Verified 11/19/16 07:40) Home Medications: Medication Instructions Recorded Pantoprazole Sodium [Protonix 40mg 40 mg PO DAILY #30 tab 11/19/16 (*)] Medical Decision Making - Diagnostics EKG Interpretation: 12 lead EKG is interpreted in Trace master View by emergency department physician. ED Course/Re-evaluation: I was able to interviewed this patient with a Cameroonian chrome cleaner. The patient has several vague complaints, all of which he has had in the past. Fortunately he does not have abdominal pain or tenderness on exam. I do not think that he is suffering from pancreatitis tonight. His EKG is normal and I do not suspect an acute coronary syndrome. He initially reported some chest pressure, but when questioned further he is unable to provide any specific details. It is difficult to keep him on track during interview. I do not think that he needs a cardiac workup at this time. Based upon review of his records, he does not have a history of coronary artery disease. He tells me that he will start to shake and I have informed him that he will have Librium available at the [facility] [place]. I do not think that he has an acute medical problem that requires further emergency department evaluation. He specifically asked me if he could remain in the hospital overnight, rather than going to the [facility] [place]. Obviously, this is not possible. Differential Diagnosis: I considered a differential diagnosis that includes but is not limited to pancreatitis, gastritis, cholecystitis, acute coronary syndrome, GERD, and sequelae of alcohol abuse. - Data Points Medications Given: Discontinued Medications Chlordiazepoxide (Librium 25 Mg Prepack#6) 1 btl TAKEHOME EDNOW ONE Stop: 01/12/17 20:56 Last Admin: 01/12/17 21:28 Dose: 1 btl Ondansetron HCl (Zofran Odt 4 Mg Prepack#2) 1 btl TAKEHOME EDNOW ONE Stop: 01/12/17 21:34 Last Admin: 01/12/17 21:40 Dose: 1 btl Departure - Departure Disposition: Home, Routine, Self-Care Clinical Impression: Alcohol abuse Condition: Good Instructions: Chlordiazepoxide (By mouth), Abuse of Alcohol (ED) Additional Instructions: Go directly to Addiction Recovery [facility]. Referrals: [facility] [Outside] - As per Instructions
--- NOTE | 2017-01-12 21:01 | CPEKG ---
Heart Rate: 113 RR Interval: 531 P-R Interval: 156 QRSD Interval: 74 QT Interval: 336 QTC Interval: 461 P [place]: 42 QRS [place]: 13 T Wave [place]: 47 EKG Severity - OTHERWISE NORMAL ECG - EKG Impression: SINUS TACHYCARDIA Electronically Signed By: Aldo Moseley 13-Jan-2017 16:46:39
[2017-01-12 21:02] VITALS: RESP 18
[2017-01-12] MEDS ORDERED: ONDANSETRON 4MG PREPACK#2 BTL TAKEHOME ONE (21:33)
[2017-01-12 21:40] VITALS: BP 107/72; PULSE 111; TEMP 98.2; O2SAT 92
== END 2017-01-12 21:45 | disposition home or self-care (01) ==
LOC: EDUNIT#
DX: F10.10 Alcohol abuse, uncomplicated (principal)

== ENCOUNTER 2017-07-14 14:20 | Emergency (ER) | payer SELFPAY ==
--- NOTE | 2017-07-14 14:22 | EDPHY ---
HPI/HX/ROS/PE/MDM <Jesse Hooks - Last Filed: 07/14/17 14:59> - Data Points Imaging: Discussed imaging studies w/ compensation manager Radiologist <Lalita Metz - Last Filed: 07/14/17 17:02> Narrative: CHIEF COMPLAINT: Seizure HPI: The patient is a 56 y/o male with a long history of alcohol abuse who arrives via EMS from the [facility] after a witnessed seizure this afternoon. Staff described to EMS a 30-second tetanic seizure after the patient fell from standing and struck his head on the tile floor. He was alert upon EMS arrival and complaining of frontal head pain. He has been tachycardic during transport around 130. He received 25mg PO Librium at 13:20, 1 hour ago. His last breath alcohol was 0.03. He denies other complaints or trauma to me. REVIEW OF SYSTEMS: Aside from elements discussed in the HPI, a comprehensive 10-point review of systems was reviewed and is negative. PMH: Alcohol abuse, alcohol withdrawal, cirrhosis, pancreatitis, gastritis, diverticulitis Prior medical records reviewed including ED visit 01/12/17 for vague complaints. SOCIAL HISTORY: Alcohol abuse, heavy smoker, homeless, lives in [facility]. PHYSICAL EXAM: General:Patient is alert, in no acute distress. ENT:Eyes are normal to inspection. ENT inspection normal. Neck: Normal inspection. C-collar in place. Respiratory:No respiratory distress. Breath sounds normal bilaterally. Cardiovascular: Tachycardic regular rate and rhythm. Strong peripheral pulses. Normal cap refill. Abdomen:The abdomen is nontender to palpation. There are no peritoneal signs. There are normal bowel sounds. Back: Normal to inspection. No tenderness to palpation. Skin: Normal color. No rash. Warm and dry. Extremities: Normal appearance. Full range of motion. Neuro: Oriented x3. Normal motor function. Normal sensory function. (Jesse Hooks) ED Course: This is a 56 y/o male with history of alcohol abuse and several prior ED visits arriving from detox after a witnessed 30-second seizure likely from alcohol withdrawal. Exam is unremarkable. Plan for head and neck CTs, labs, EKG, CIWA protocol with 1mg IV Ativan, and 1L IV NS. The 12 lead EKG was interpreted by myself. Sinus tachycardia. See hard copy and/ or "tracemaster" electronic copy for interpretation. 1500: Patient care signed out to Dr. Metz at shift change pending CTs and labs. (Jesse Hooks) 15:00 I assumed care of this patient at shift change. Reviewed laboratory studies, consistent with seizure. 15:[address] France, radiologist. CT head and cervical spine negative for acute processes. 16:05 Reassessed patient. Removed c-collar. No midline tenderness, range of motion without pain. He remains tachycardic with a heart rate of 110. Ativan 1 mg IV given for alcohol withdrawal. The plan will be for him to go to the [facility] with Librium. (Lalita Metz) - Data Points Imaging Results: Imaging Impressions Cervical Spine CT 07/14/17 14:23 Impression: 1. Mild brain with atrophy and probable white matter small vessel disease. 2. Negative for intracranial hemorrhage. CT Cervical Spine Without Contrast History: Trauma. Technique: Multislice helical CT through the cervical spine without contrast from the skull base to T1. Soft tissue and bone evaluation is performed. Sagittal and coronal reconstructions are obtained and reviewed. Dose reduction techniques were utilized. Findings: Cervical alignment is anatomic. No fracture or dislocation is identified. The relationship between skull base and C1 is normal. The C1-C2 articulation is normal. The odontoid process is normal. The cervical thoracic junction is normal. Soft tissue window evaluation does not show evidence of epidural or prevertebral hematoma. Degenerative changes are noted with disk space loss in vertebral body spurring at C5-C6 and C6-C7. Impression: Negative for fracture with degenerative changes noted. Results called and discussed with Lalita Metz MD on 07/14/2017 at 15:[address] 07/14/17 14:23 Impression: 1. Mild brain with atrophy and probable white matter small vessel disease. 2. Negative for intracranial hemorrhage. CT Cervical Spine Without Contrast History: Trauma. Technique: Multislice helical CT through the cervical spine without contrast from the skull base to T1. Soft tissue and bone evaluation is performed. Sagittal and coronal reconstructions are obtained and reviewed. Dose reduction techniques were utilized. Findings: Cervical alignment is anatomic. No fracture or dislocation is identified. The relationship between skull base and C1 is normal. The C1-C2 articulation is normal. The odontoid process is normal. The cervical thoracic junction is normal. Soft tissue window evaluation does not show evidence of epidural or prevertebral hematoma. Degenerative changes are noted with disk space loss in vertebral body spurring at C5-C6 and C6-C7. Impression: Negative for fracture with degenerative changes noted. Results called and discussed with Lalita Metz MD on 07/14/2017 at 15:54 Laboratory Results: Laboratory Results 07/14/17 14:55 07/14/17 14:55 07/14/17 07/14/17 14:55 14:55 WBC 7.78 10^3/uL 10^3/uL (3.80-9.50) RBC 4.17 10^6/uL L 10^6/uL (4.40-6.38) Hgb 8.3 g/dL L g/dL (13.7-17.5) Hct 27.3 % L % (40.0-51.0) MCV 65.5 fL L fL (81.5-99.8) MCH 19.9 pg L pg (27.9-34.1) MCHC 30.4 g/dL L g/dL (32.4-36.7) RDW 26.6 % H % (11.5-15.2) Plt Count 172 10^3/uL 10^3/uL (150-400) MPV 8.9 fL fL (8.7-11.7) Neut % (Auto) 83.3 % H % (39.3-74.2) Lymph % (Auto) 5.4 % L % (15.0-45.0) [place] % (Auto) 10.0 % % (4.5-13.0) Eos % (Auto) 0.4 % L % (0.6-7.6) Baso % (Auto) 0.5 % % (0.3-1.7) Nucleat RBC Rel Count 0.0 % % (0.0-0.2) Absolute Neuts (auto) 6.48 10^3/uL 10^3/uL (1.70-6.50) Absolute Lymphs (auto) 0.42 10^3/uL L 10^3/uL (1.00-3.00) Absolute Monos (auto) 0.78 10^3/uL 10^3/uL (0.30-0.80) Absolute Eos (auto) 0.03 10^3/uL 10^3/uL (0.03-0.40) Absolute Basos (auto) 0.04 10^3/uL 10^3/uL (0.02-0.10) Absolute Nucleated RBC 0.00 10^3/uL 10^3/uL (0-0.01) Immature Gran % 0.4 % % (0.0-1.1) Immature Gran # 0.03 10^3/uL 10^3/uL (0.00-0.10) Platelet Estimate ADEQUATE (ADEQ) Polychromasia 1+ H Hypochromasia 2+ H Microcytic Cells 2+ H Tear Drop Cells 1+ H Elliptocytes 1+ H Smear Review By Pending Sodium 137 mEq/L mEq/L (135-145) Potassium 3.3 mEq/L L mEq/L (3.5-5.2) Chloride 99 mEq/L mEq/L (97-110) Carbon Dioxide 19 mEq/l L mEq/l (22-31) Anion Gap 19 mEq/L H mEq/L (8-16) BUN 3 mg/dL L mg/dL (7-23) Creatinine 0.4 mg/dL L mg/dL (0.7-1.3) Estimated GFR > 60 Glucose 106 mg/dL H mg/dL (70-100) Calcium 8.5 mg/dL mg/dL (8.5-10.4) Medications Given: Lorazepam (Ativan) 0 mg PO Q4H PRN; Protocol PRN Reason: Alcohol Withdrawal w/IV access Stop: 07/15/17 02:24 Last Admin: 07/14/17 16:46 Dose: 1 mg Lorazepam (Ativan Injection) 0 mg IVP Q1H PRN; Protocol PRN Reason: Alcohol Withdrawal w/IV access Stop: 07/15/17 02:24 Last Admin: 07/14/17 14:44 Dose: 2 mg Discontinued Medications Acetaminophen (Tylenol) 650 mg PO EDNOW ONE Stop: 07/14/17 16:36 Last Admin: 07/14/17 16:45 Dose: 650 mg Chlordiazepoxide (Librium 25 Mg Prepack#6) 1 btl TAKEHOME EDNOW ONE Stop: 07/14/17 16:16 Last Admin: 07/14/17 16:46 Dose: Not Given Sodium Chloride (Ns) 1,000 mls @ 0 mls/hr IV EDNOW ONE; Wide Open PRN Reason: Protocol Stop: 07/14/17 14:25 Last Admin: 07/14/17 14:45 Dose: 1,000 mls Lorazepam (Ativan Injection) 1 mg IVP EDNOW ONE Stop: 07/14/17 16:16 Last Admin: 07/14/17 16:46 Dose: Not Given General <Jesse Hooks - Last Filed: 07/14/17 14:59> <Lalita Metz - Last Filed: 07/14/17 17:02> Time Seen by Provider: 07/14/17 14:20 Initial Vital Signs: Initial Vital Signs Temperature (C) 36.8 C 07/14/17 14:27 Heart Rate 130 H 07/14/17 14:27 Respiratory Rate 18 07/14/17 14:27 Blood Pressure 177/107 H 07/14/17 14:27 O2 Sat (%) 95 07/14/17 14:27 O2 Delivery Mode Room Air Allergies/Adverse Reactions: No Known Allergies Allergy (Verified 07/14/17 14:27) Home Medications: Medication Instructions Recorded Pantoprazole Sodium [Protonix 40mg 40 mg PO DAILY #30 tab 11/19/16 (*)] Departure <Jesse Hooks - Last Filed: 07/14/17 14:59> <Laltia Metz - Last Filed: 07/14/17 17:02> - Departure Disposition: Home, Routine, Self-Care Clinical Impression: Alcohol withdrawal seizure Qualifiers: Complication of substance-induced condition: uncomplicated Qualified Code(s): F10.230 - Alcohol dependence with withdrawal, uncomplicated Condition: Good Instructions: Chlordiazepoxide (By mouth), Alcohol Withdrawal (ED) Additional Instructions: 1. Take Librium as directed, one tablet every 6 hours. 2. Return to the emergency department for fever, repeat seizures, vomiting, confusion, headache, abdominal pain or other worsening of condition. 3. Proceed to the [facility] for assistance in alcohol recovery. Referrals: [facility] [Outside] - As per Instructions [facility],. [Clinic] - As per Instructions Report Scribed for: Jesse Hooks Report Scribed by: Waleska Chaves Date of Report: 07/14/17 Time of Report: 14:23 Physician Review and Approval Statement: Portions of this note were transcribed by an ED scribe. I personally performed the history, physical exam, and medical decision making; and confirm the accuracy of the information in the transcribed note. <Jesse Hooks - Last Filed: 07/14/17 14:59>
[2017-07-14] MEDS ORDERED: LORazepam 2 MG/ML INJ IVP PRN (14:24)
[2017-07-14] MEDS ORDERED: LORazepam 1 MG TAB PO PRN (14:24)
[2017-07-14] MEDS ORDERED: NS 1,000 ML IV ONE (14:24)
[2017-07-14 14:29] VITALS: TEMP 98.2
--- NOTE | 2017-07-14 14:41 | CPEKG ---
Heart Rate: 115 RR Interval: 522 P-R Interval: 148 QRSD Interval: 76 QT Interval: 340 QTC Interval: 471 P [place]: 56 QRS [place]: 31 T Wave [place]: 44 EKG Severity - OTHERWISE NORMAL ECG - EKG Impression: SINUS TACHYCARDIA Electronically Signed By: Lalita Metz 14-Jul-2017 21:33:36
[2017-07-14 15:03] LABS: PLATELET COUNT 172 10^3/uL (150-400)
[2017-07-14] MEDS ORDERED: LORazepam 2 MG/ML INJ IVP ONE (16:15)
[2017-07-14] MEDS ORDERED: CHLORDIAZEPOXIDE 25MG PREPK#6 BTL TAKEHOME ONE (16:15)
[2017-07-14] MEDS ORDERED: ACETAMINOPHEN 325 MG TAB PO ONE (16:35)
[2017-07-14 16:49] VITALS: BP 155/94; PULSE 105; RESP 18; O2SAT 94
== END 2017-07-14 17:30 | disposition home or self-care (01) ==
LOC: EDUNIT#
DX: F10.230 Alcohol dependence with withdrawal, uncomplicated (principal); F17.200 Nicotine dependence, unspecified, uncomplicated; E86.9 Volume depletion, unspecified; W01.198A Fall on same level from slipping, tripping and stumbling with subsequent striking against other object, initial encounter
CPT/HCPCS: 96374; J2060

== ENCOUNTER 2017-08-13 11:06 | Emergency (ER) | payer MEDICAID ==
--- NOTE | 2017-08-13 11:21 | CPEKG ---
Heart Rate: 107 RR Interval: 561 P-R Interval: 132 QRSD Interval: 76 QT Interval: 324 QTC Interval: 433 P [place]: 58 QRS [place]: 30 T Wave [place]: 60 EKG Severity - BORDERLINE ECG - EKG Impression: SINUS TACHYCARDIA EKG Impression: BORDERLINE T ABNORMALITIES, ANT-LAT LEADS Electronically Signed By: Su Pitts 13-Aug-2017 17:18:54
[2017-08-13] MEDS ORDERED: NS 1,000 ML IV ONE ×2 (11:26→13:01)
--- NOTE | 2017-08-13 11:36 | EDPHY ---
HPI/HX/ROS/PE/MDM Narrative: CHIEF COMPLAINT: Chest pain HISTORY OF PRESENT ILLNESS: The patient is a 56 y/o male arriving via EMS complaining of intermittent chest pain onset 4 weeks ago. His medical history including CAD, hypertension, and alcohol abuse with cirrhosis, pancreatitis, and withdrawal seizures. His pain today feels the same as prior episodes that have previously been attributed to pancreatitis. He has been drinking alcohol daily to treat his pain; last alcohol intake was yesterday. EMS administered nitro, Zofran, and aspirin en route with minimal improvement in symptoms. He reports he's had prior heart attacks, but it's unclear if he is actually discussing his pancreatitis episodes; no mentions of PA in prior H&Ps here. Patient is a poor historian and responds to many questions by saying, "it was something like that." maitre d assisted with history. No fever, chills, shortness of breath, palpitations, vomiting, diarrhea, urinary complaints, headache, lightheadedness. REVIEW OF SYSTEMS: Aside from elements discussed in the HPI, a comprehensive 10-point review of systems was reviewed and is negative. PAST MEDICAL HISTORY: 1. Coronary artery disease 2. Hypertension 3. Alcohol abuse 4. Pancreatitis with several admission 5. Alcoholic cirrhosis 6. Alcohol withdrawal seizures EGD Jun 2016 showed inflammation, no malignant cells. SOCIAL HISTORY: Heavy smoker, heavy alcohol use, Vietnamese-speaking VITAL SIGNS: Reviewed by me GENERAL: Well-developed, well-nourished, resting comfortably in no respiratory distress. HEENT: Atraumatic. Eyes: No icterus, no injection. Mouth: moist mucous membranes. No erythema or lesions. Neck: supple with no adenopathy. LUNGS: Clear to auscultation bilaterally, no wheezes, rhonchi or rales. CARDIAC: Tachycardic rate and rhythm, no rubs, murmurs or gallops. ABDOMEN: Soft, epigastric and RUQ tenderness, nondistended, bowel sounds normal. BACK: No CVA tenderness. EXTREMITIES: No trauma. No edema. Range of motion is normal throughout. NEURO: Alert and oriented, grossly nonfocal. Mildly tremulous, mild tongue tremor. SKIN: Warm and dry, no rash. PSYCHIATRIC: Normal mentation, no agitation. Portions of this note were transcribed by a medical office supervisor. I personally performed a history, physical exam, medical decision making, and confirmed accuracy of information the transcribed note. ED Course: This is a 56 y/o male with significant alcohol abuse history and prior admission for pancreatitis who presents with a 4-week history of intermittent chest pain. His symptoms feel exactly the same as his prior pancreatitis and he has epigastric and LUQ tenderness on exam. He is mildly tremulous and tachycardic here and his last alcohol use was yesterday, which may indicate early alcohol withdrawal. Plan for IV, labs, EKG, chest x-ray. 1L IV NS ordered. The 12 lead EKG was interpreted by myself. Sinus tachycardia 107. See hard copy and/or "tracemaster" electronic copy for interpretation. Chest x-ray: negative. Labs unremarkable. Troponin is negative and should be sensitive due to 4-week history of pain. GI cocktail and 1mg IV Ativan administered for symptoms with alleviation of complaints. HR down to mid 90s. Presentation consistent with alcohol withdrawal. Patient will be discharged with Librium to the [facility] with standard follow up and return precautions. He is comfortable with this plan. MDM: After history and physical examination, the differential for chest pain was considered, including but not limited to, myocardial ischemia, acute coronary syndrome, pulmonary embolus, chest wall pain, gastritis, reflux, pancreatitis, pleural inflammation and pulmonary infectious causes. - Data Points Imaging Results: Imaging Impressions Chest X-Ray 08/13/17 11:57 Impression: Normal chest. Imaging: I viewed and interpreted images myself Laboratory Results: Laboratory Results 08/13/17 11:30 08/13/17 11:30 08/13/17 08/13/17 11:30 11:30 WBC 7.25 10^3/uL 10^3/uL (3.80-9.50) RBC 3.96 10^6/uL L 10^6/uL (4.40-6.38) Hgb 7.8 g/dL L g/dL (13.7-17.5) Hct 26.5 % L % (40.0-51.0) MCV 66.9 fL L fL (81.5-99.8) MCH 19.7 pg L pg (27.9-34.1) MCHC 29.4 g/dL L g/dL (32.4-36.7) RDW 25.7 % H % (11.5-15.2) Plt Count 387 10^3/uL 10^3/uL (150-400) MPV 9.6 fL fL (8.7-11.7) Neut % (Auto) 72.8 % % (39.3-74.2) Lymph % (Auto) 12.6 % L % (15.0-45.0) [place] % (Auto) 13.2 % H % (4.5-13.0) Eos % (Auto) 0.4 % L % (0.6-7.6) Baso % (Auto) 0.7 % % (0.3-1.7) Nucleat RBC Rel Count 0.0 % % (0.0-0.2) Absolute Neuts (auto) 5.28 10^3/uL 10^3/uL (1.70-6.50) Absolute Lymphs (auto) 0.91 10^3/uL L 10^3/uL (1.00-3.00) Absolute Monos (auto) 0.96 10^3/uL H 10^3/uL (0.30-0.80) Absolute Eos (auto) 0.03 10^3/uL 10^3/uL (0.03-0.40) Absolute Basos (auto) 0.05 10^3/uL 10^3/uL (0.02-0.10) Absolute Nucleated RBC 0.00 10^3/uL 10^3/uL (0-0.01) Immature Gran % 0.3 % % (0.0-1.1) Immature Gran # 0.02 10^3/uL 10^3/uL (0.00-0.10) Platelet Estimate ADEQUATE (ADEQ) Polychromasia 1+ H Hypochromasia 3+ H Microcytic Cells 3+ H Stomatocytes 1+ H Elliptocytes 1+ H Schistocytes 1+ H Smear Review By Julienne SAUNDERS MD Sodium 144 mEq/L mEq/L (135-145) Potassium 2.8 mEq/L L mEq/L (3.5-5.2) Chloride 107 mEq/L mEq/L (97-110) Carbon Dioxide 23 mEq/l mEq/l (22-31) Anion Gap 14 mEq/L mEq/L (8-16) BUN 10 mg/dL mg/dL (7-23) Creatinine 0.4 mg/dL L mg/dL (0.7-1.3) Estimated GFR > 60 Glucose 146 mg/dL H mg/dL (70-100) Calcium 8.4 mg/dL L mg/dL (8.5-10.4) Total Bilirubin 0.2 mg/dL mg/dL (0.1-1.4) Conjugated Bilirubin 0.2 mg/dL mg/dL (0.0-0.5) Unconjugated Bilirubin 0.0 mg/dL mg/dL (0.0-1.1) AST 35 IU/L IU/L (17-59) ALT 34 IU/L IU/L (21-72) Alkaline Phosphatase 64 IU/L IU/L (38-126) Troponin I 0.021 ng/mL ng/mL (0.000-0.034) Total Protein 6.1 g/dL L g/dL (6.3-8.2) Albumin 3.1 g/dL L g/dL (3.5-5.0) Lipase 145 IU/L IU/L (23-300) Medications Given: Discontinued Medications Al Hydroxide/Mg Hydroxide (Maalox Susp) 30 ml PO ONCE ONE Stop: 08/13/17 13:03 Last Admin: 08/13/17 13:12 Dose: 30 ml Chlordiazepoxide (Librium 25 Mg Prepack#6) 1 btl TAKEHOME EDNOW ONE Stop: 08/13/17 14:07 Last Admin: 08/13/17 14:08 Dose: 1 btl Chlordiazepoxide HCl (Librium) 25 mg PO EDNOW ONE Stop: 08/13/17 13:03 Last Admin: 08/13/17 13:12 Dose: 25 mg Hyoscyamine Sulfate (Levsin, Hyomax-Sl) 0.25 mg PO ONCE ONE Stop: 08/13/17 13:03 Last Admin: 08/13/17 13:10 Dose: 0.25 mg Sodium Chloride (Ns) 1,000 mls @ 0 mls/hr IV EDNOW ONE; Wide Open PRN Reason: Protocol Stop: 08/13/17 11:27 Last Admin: 08/13/17 11:28 Dose: 1,000 mls Sodium Chloride (Ns) 1,000 mls @ 0 mls/hr IV ONCE ONE; Wide Open PRN Reason: Protocol Stop: 08/13/17 13:02 Last Admin: 08/13/17 13:14 Dose: 1,000 mls Lidocaine (Lidocaine 2% Viscous) 15 ml PO ONCE ONE Stop: 08/13/17 13:03 Last Admin: 08/13/17 13:12 Dose: 15 ml Lorazepam (Ativan Injection) 1 mg IVP EDNOW ONE Stop: 08/13/17 13:02 Last Admin: 08/13/17 13:12 Dose: 1 mg Potassium Chloride (Klor-Con) 40 meq PO ONCE ONE Stop: 08/13/17 13:00 Last Admin: 08/13/17 13:12 Dose: 40 meq General Time Seen by Provider: 08/13/17 11:21 Initial Vital Signs: Initial Vital Signs Temperature (C) 36.9 C 08/13/17 11:06 Heart Rate 120 H 08/13/17 11:06 Respiratory Rate 18 08/13/17 11:06 Blood Pressure 136/75 H 08/13/17 11:06 O2 Sat (%) 91 L 08/13/17 11:06 O2 Delivery Mode Room Air O2 (L/minute) 2 Allergies/Adverse Reactions: No Known Allergies Allergy (Verified 07/14/17 14:27) Home Medications: Medication Instructions Recorded Aspirin 08/13/17 Ibuprofen 08/13/17 TYLENOL #3 08/13/17 Departure - Departure Disposition: Home, Routine, Self-Care Clinical Impression: Alcohol withdrawal Qualifiers: Complication of substance-induced condition: uncomplicated Qualified Code(s): F10.230 - Alcohol dependence with withdrawal, uncomplicated Condition: Good Instructions: Alcohol Withdrawal (ED) Additional Instructions: Medically clear for detox. Take Librium as prescribed for alcohol withdrawal symptoms. Follow up with your primary care provider as needed. Return to the ED for worsening of condition. Medicamente clemente para destoxificacion. [place] Librium haider se le fue recetado para sntomas por retiro de alcohol Felicitas bk felisha de seguimiento con mead doctor de cabecera cuando lo necesite. Regrese a la kavin de emergencias por empeoramiento de mead condicin. Referrals: [facility] 24 Hours [Outside] - As per Instructions Report Scribed for: Su Pitts Report Scribed by: Waleska Chaves Date of Report: 08/13/17 Time of Report: 11:56
[2017-08-13 11:52] LABS: PLATELET COUNT 387 10^3/uL (150-400)
[2017-08-13 12:29] VITALS: RESP 18; TEMP 98.4
[2017-08-13] MEDS ORDERED: POTASSIUM CL 20 MEQ TAB PO ONE (12:59)
[2017-08-13] MEDS ORDERED: LORazepam 2 MG/ML INJ IVP ONE (13:01)
[2017-08-13] MEDS ORDERED: chlordiazePOXIDE 25 MG CAP PO ONE (13:02)
[2017-08-13] MEDS ORDERED: HYOSCYAMINE SULFATE 0.125 MG TAB PO ONE (13:02)
[2017-08-13] MEDS ORDERED: MAG HYDROX/AL HYDROX/SIMETH 30 ML UDCUP PO ONE (13:02)
[2017-08-13] MEDS ORDERED: LIDOCAINE 2% VISCOUS 15 ML UDCUP PO ONE (13:02)
[2017-08-13] MEDS ORDERED: CHLORDIAZEPOXIDE 25MG PREPK#6 BTL TAKEHOME ONE (14:06)
[2017-08-13 14:24] VITALS: BP 137/85; PULSE 109; O2SAT 98
== END 2017-08-13 14:24 | disposition home or self-care (01) ==
DX: F10.230 Alcohol dependence with withdrawal, uncomplicated (principal); E86.9 Volume depletion, unspecified; I10 Essential (primary) hypertension; I25.10 Atherosclerotic heart disease of native coronary artery without angina pectoris; F17.200 Nicotine dependence, unspecified, uncomplicated
CPT/HCPCS: 96374; J2060

== ENCOUNTER 2017-09-14 08:42 | Inpatient (IN) | payer MEDICAID ==
--- NOTE | 2017-09-14 08:57 | EDPHY ---
H & P Stated Complaint: Abd pain, N/V, black stools from [facility] Source: Patient, Account Management Assistant (Syriac) Exam Limitations: Language barrier - Personal History Tetanus Vaccine Date: 2012 - Medical/Surgical History Hx Asthma: No Hx Chronic Respiratory Disease: No Hx Diabetes: No Hx Cardiac Disease: No Hx Renal Disease: No Hx Cirrhosis: Yes Hx Alcoholism: Yes Hx HIV/AIDS: No Hx Splenectomy or Spleen Trauma: No Other PMH: PMH: Etoh abuse, cirrhosis, pancreatitis, gastritis, diverticulitis, homeless - Social History Smoking Status: Heavy smoker Time Seen by Provider: 09/14/17 08:56 HPI/ROS: HPI: This is a 56-year-old male who presents with Chief Complaint: Abd pain, N/V, black stools from [facility] Location: Epigastric Quality: Pain Duration: 6 days Signs and Symptoms: no fever, + nausea, + vomiting, no hematemesis, no blood in stool, no abdominal bloating, no diarrhea, no back pain, no urinary symptoms, no testicular/groin pain, no indigestion, no chest pain, no shortness of breath Timing: Acute, intermittent episodes Severity: [id number] Context: Patient has a history of alcohol abuse, cirrhosis, alcoholic pancreatitis, status post EGD last June showing esophageal stricture secondary to chronic inflammation and esophagitis presents via taxi from the [facility] with complaints of 6 day history of epigastric, sharp burning radiating pain to the left upper quadrant that improves with ibuprofen for 30 min and then returned. He reports decreased intake of food. Drinking fluids without difficulty. Denies any fever/urinary symptoms. He does complain of chronic low back pain that is typical for him. No recent injuries or trauma. Patient reports that his last drink of alcohol was a shot on Sunday approximately 6 days ago. He has been receiving ibuprofen and another"pill"at the [facility] but he is unsure of the name. Denies any recent withdrawal or seizure activity. Denies hematemesis/blood in stool. No history of abdominal surgery. Modifying Factors: See above Comment: ROS: see HPI Constitutional: No fever, no chills, no weight loss Eyes: No blurred vision Respiratory: No shortness of breath, no cough Cardiovascular: No chest pain, no palpitations Gastrointestinal: + nausea, + vomiting, no diarrhea, no hematemesis,+ blood in stool Genitourinary: No dysuria, no blood in urine Extremities: No myalgias, no edema Neurologic: No weakness, no numbness Skin: No rashes, no petechiae Hematologic: No bruising, no bleeding MEDICAL/SURGICAL/SOCIAL HISTORY: Medical history: Etoh abuse, cirrhosis, pancreatitis, gastritis, diverticulitis , homeless Surgical history: Denies Social history: Unemployed. CONSTITUTIONAL: Chronically ill-appearing middle-aged male, awake and alert, no obvious distress HEENT: Atraumatic and normocephalic, PERRL, EOMI. Pale conjunctiva. Tympanic membranes clear. Oropharynx clear, no exudate and moist pink mucosa. Airway patent. No lymphadenopathy. No meningismus. Cardiovascular: Normal S1/S2, mild tachycardia, regular rhythm, without murmur rub or gallop. PULMONARY/CHEST: Symmetrical and nontender. Clear to auscultation bilaterally. Good air movement. No accessory muscle usage. ABDOMEN: Soft, nondistended, moderate epigastric tenderness, no rebound, no guarding, no peritoneal signs, no masses or organomegaly. No CVAT. RECTAL: Patient declined EXTREMITIES: 2/2 pulses, strength 5/5, no deformities, no clubbing, no cyanosis or edema. NEUROLOGICAL: no focal neuro deficits. GCS 15. SKIN: Warm and dry, pallor, no erythema. no rash. Good capillary refill. (Shavonne Carbajal) Constitutional: Initial Vital Signs Temperature (C) 37.0 C 09/14/17 08:43 Heart Rate 114 H 09/14/17 08:43 Respiratory Rate 16 09/14/17 08:43 Blood Pressure 120/72 09/14/17 08:43 O2 Sat (%) 100 09/14/17 08:43 O2 Delivery Mode Room Air Allergies/Adverse Reactions: No Known Allergies Allergy (Verified 07/14/17 14:27) Home Medications: Medication Instructions Recorded Acetaminophen [Tylenol 325mg (*)] 325 mg PO DAILY PRN 09/14/17 Aspirin [Aspirin 325 mg (*)] 325 mg PO DAILY PRN 09/14/17 Ibuprofen [Motrin (*)] 200 mg PO DAILY PRN 09/14/17 Medical Decision Making - Diagnostics EKG Interpretation: EKG: Complete interpretation has been separately recorded in the Tracemaster archive. Summary impression: Sinus tachycardia, rate 101 (Kendell Escamilla) Imaging Results: Imaging Impressions Abdomen CT 09/14/17 09:19 Impression: 1. Small hiatal hernia with a severe distal esophagitis versus Carrero's dysplasia versus river esophageal neoplasm with chronic reactive lymphadenitis versus neoplastic paraesophageal lymph nodes. Endoscopic correlation is recommended. 2. There is no CT evidence of pancreatitis. 3. Mild hepatic steatosis. 4. Constipation. 5. Grade I-II L5-S1 spondylolisthesis with an accompanying spondylolysis. 6. Pronounced urinary bladder wall thickening, which may be augmented by incomplete distention, although a concurrent cystitis is not excluded. Correlation with urinalysis is recommended. Findings were discussed with Shavonne Carbajal PA-C at 10:47, on 09/14/2017. She indicated that since ordering the exam, the patient's serum lipase returned normal, although the patient is anemic. His last endoscopy was in June 2016 revealing a stricture and esophagitis without Carrero's or neoplastic change. ED Course/Re-evaluation: Labs, urinalysis, EKG, IV fluids, IV medications, oral medications, CT abdomen and pelvis scan ordered Vital signs reviewed upon arrival with mild tachycardia noted Etiology is likely alcoholic gastritis, esophagitis versus pancreatitis. Given 1 L normal saline, GI cocktail, IV Protonix, IV Zofran, IV Dilaudid 0.5 mg upon arrival No signs of delirium tremens 1000: Called by lab and hemoglobin 5.3; discussed case with attending; history of chronic blood loss from severe esophagitis exacerbated by alcohol use and ibuprofen use; transfuse 2 units packed red blood cells; type and screen. Patient now notifies nurse that he has had black tarry school stools for the last few days. No syncope/chest pain/shortness of breath. labs show no MITCH/electrolyte imbalance/elevated LFTs 1000: ED decision to consult for admission. Spoke with Hospitalist, Dr. Grajeda , who kindly accepts to admit patient and provide further care. At the time of consult CT abdomen and pelvis scan results are pending. 1050: called by Dr. Hernandez who advised CT A/P scan shows severe esophagitis, no perforation/pancreatitis. ? malignancy This patient was seen under the supervision of my secondary supervising physician. I evaluated care for this patient independently. Discussed this patient with Dr. Escamilla who did not see the patient. (Shavonne Carbajal) Differential Diagnosis: Abdominal pain including but not limited to appendicitis, cholecystitis, pancreatitis, esophagitis, gastritis and urinary tract infection. (Shavonne Carbajal) Other Provider: I evaluated and participated in the management of the patient. I also evaluated the patient independently. My co-signature indicates that I have reviewed this chart and I agree with the findings and plan of care as documented. My personal H&P findings include: The patient presents to the ED with abdominal pain, alcoholism and melena. The patient is noted to be anemic in the emergency department. He was slightly tachycardic. ED course: The patient is been typed and crossed for 2 units of blood. The patient received IV Protonix. Consultation is made with the hospitalist service for admission. Consultation is made with Gastroenterology. (Kendell Escamilla) - Data Points Laboratory Results: Laboratory Results 09/14/17 09:25 09/14/17 09:25 09/14/17 09/14/17 09/14/17 10:05 09:25 09:25 WBC 5.15 10^3/uL 10^3/uL (3.80-9.50) RBC 2.59 10^6/uL L 10^6/uL (4.40-6.38) Hgb 5.3 g/dL L* g/dL (13.7-17.5) Hct 18.7 % L % (40.0-51.0) MCV 72.2 fL L fL (81.5-99.8) MCH 20.5 pg L pg (27.9-34.1) MCHC 28.3 g/dL L g/dL (32.4-36.7) RDW 27.8 % H % (11.5-15.2) Plt Count 382 10^3/uL 10^3/uL (150-400) MPV 9.3 fL fL (8.7-11.7) Neut % (Auto) Not Reported Lymph % (Auto) Not Reported [place] % (Auto) Not Reported Eos % (Auto) Not Reported Baso % (Auto) Not Reported Nucleat RBC Rel Count 0.6 % H % (0.0-0.2) Absolute Neuts (auto) Not Reported Absolute Lymphs (auto) Not Reported Absolute Monos (auto) Not Reported Absolute Eos (auto) Not Reported Absolute Basos (auto) Not Reported Absolute Nucleated RBC 0.03 10^3/uL H 10^3/uL (0-0.01) Immature Gran % Not Reported Seg Neutrophils % 55 % % Lymphocytes % 10 % % Monocytes % 34 % % Eosinophils % 1 % % Immature Gran # Not Reported Absolute Seg Neuts 2.83 10^/uL 10^/uL (1.70-6.50) Absolute Lymphocytes 0.52 10^3/uL L 10^3/uL (1.00-3.00) Absolute Monocytes 1.75 10^3/uL H 10^3/uL (0.30-0.80) Absolute Eosinophils 0.05 10^3/uL 10^3/uL (0.03-0.40) Platelet Estimate ADEQUATE (ADEQ) Large Platelets PRESENT H Polychromasia 2+ H Hypochromasia 3+ H Microcytic Cells 3+ H Smear Review By Pending Sodium 136 mEq/L mEq/L (135-145) Potassium 3.5 mEq/L mEq/L (3.5-5.2) Chloride 100 mEq/L mEq/L (97-110) Carbon Dioxide 24 mEq/l mEq/l (22-31) Anion Gap 12 mEq/L mEq/L (8-16) BUN 5 mg/dL L mg/dL (7-23) Creatinine 0.5 mg/dL L mg/dL (0.7-1.3) Estimated GFR > 60 Glucose 113 mg/dL H mg/dL (70-100) Calcium 8.1 mg/dL L mg/dL (8.5-10.4) Total Bilirubin 0.5 mg/dL mg/dL (0.1-1.4) Conjugated Bilirubin 0.4 mg/dL mg/dL (0.0-0.5) Unconjugated Bilirubin 0.1 mg/dL mg/dL (0.0-1.1) AST 102 IU/L H IU/L (17-59) ALT 61 IU/L IU/L (21-72) Alkaline Phosphatase 76 IU/L IU/L (38-126) Total Protein 6.5 g/dL g/dL (6.3-8.2) Albumin 3.4 g/dL L g/dL (3.5-5.0) Amylase 95 IU/L IU/L (30-110) Lipase 259 IU/L IU/L (23-300) Ethyl Alcohol < 10 mg/dL mg/dL (0-10) Patient ABO/Rh O POSITIVE Antibody Screen NEGATIVE Crossmatch IS Only See Detail Medications Given: Discontinued Medications Al Hydroxide/Mg Hydroxide (Maalox Susp) 30 ml PO ONCE ONE Stop: 09/14/17 09:07 Last Admin: 09/14/17 09:13 Dose: 30 ml Chlordiazepoxide HCl (Librium) 25 mg PO EDNOW ONE Stop: 09/14/17 09:08 Last Admin: 09/14/17 09:29 Dose: 25 mg Hyoscyamine Sulfate (Levsin, Hyomax-Sl) 0.25 mg PO ONCE ONE Stop: 09/14/17 09:07 Last Admin: 09/14/17 09:14 Dose: 0.25 mg Sodium Chloride (Ns) 1,000 mls @ 0 mls/hr IV EDNOW ONE; Wide Open PRN Reason: Protocol Stop: 09/14/17 09:07 Last Admin: 09/14/17 09:29 Dose: 1,000 mls Lidocaine (Lidocaine 2% Viscous) 15 ml PO ONCE ONE Stop: 09/14/17 09:07 Last Admin: 09/14/17 09:13 Dose: 15 ml Ondansetron HCl (Zofran) 4 mg IVP EDNOW ONE Stop: 09/14/17 09:29 Last Admin: 09/14/17 09:28 Dose: 4 mg Pantoprazole Sodium (Protonix) 40 mg IVP ONCE ONE Stop: 09/14/17 09:08 Last Admin: 09/14/17 09:14 Dose: 40 mg Departure - Departure Disposition: [facility] Clinical Impression: Gastrointestinal hemorrhage associated with alcoholic gastritis, Microcytic anemia Condition: Fair
[2017-09-14] MEDS ORDERED: NS 1,000 ML IV ONE (09:06)
[2017-09-14] MEDS ORDERED: HYDROmorphONE/DILAUDID 2 MG/ML INJ IVP ONE (09:06)
[2017-09-14] MEDS ORDERED: HYOSCYAMINE SULFATE 0.125 MG TAB PO ONE (09:06)
[2017-09-14] MEDS ORDERED: LIDOCAINE 2% VISCOUS 15 ML UDCUP PO ONE (09:06)
[2017-09-14] MEDS ORDERED: MAG HYDROX/AL HYDROX/SIMETH 30 ML UDCUP PO ONE (09:06)
[2017-09-14] MEDS ORDERED: PANTOPRAZOLE SODIUM 40 MG VIAL IVP ONE (09:07)
[2017-09-14] MEDS ORDERED: chlordiazePOXIDE 25 MG CAP PO ONE (09:07)
[2017-09-14] MEDS ORDERED: ONDANSETRON 4 MG/2 ML VIAL ONE (09:17)
[2017-09-14] MEDS ORDERED: ONDANSETRON 4 MG/2 ML VIAL IVP ONE (09:28)
[2017-09-14 09:46] LABS: PLATELET COUNT 382 10^3/uL (150-400)
--- NOTE | 2017-09-14 09:59 | CPEKG ---
Heart Rate: 101 RR Interval: 594 P-R Interval: 136 QRSD Interval: 80 QT Interval: 340 QTC Interval: 441 P [place]: 45 QRS [place]: 27 T Wave [place]: 38 EKG Severity - OTHERWISE NORMAL ECG - EKG Impression: SINUS TACHYCARDIA Electronically Signed By: Kendell Escamilla 14-Sep-2017 11:01:34
[2017-09-14] MEDS ORDERED: IOPAMIDOL (ISOVUE-300) 100 ML BTL ONE (10:01)
[2017-09-14] MEDS ORDERED: ALBUTEROL 3 ML DEYVIAL IH PRN (11:58)
[2017-09-14] MEDS ORDERED: LORazepam 2 MG/ML INJ IVP PRN (11:58)
[2017-09-14] MEDS ORDERED: ALBUTEROL 60 PUFFS/8 GM MDI IH PRN (11:58)
[2017-09-14] MEDS ORDERED: ONDANSETRON 4 MG/2 ML VIAL IVP PRN (11:58)
[2017-09-14] MEDS ORDERED: ONDANSETRON DISINTEGRATING 4 MG TAB PO PRN (11:58)
[2017-09-14] MEDS ORDERED: chlordiazePOXIDE 25 MG CAP PO PRN (12:04)
--- NOTE | 2017-09-14 16:10 | ASMTLACE ---
[facility] Length of stay for Answers: 1 day current admission Acuity / Level of Answers: Yes Care: Did the patient have an inpatient admission? Comorbidities - select Answers: History of falls all that apply Moderate or severe liver or renal disease # of Emergency department Answers: 3-4 visits in the last 6 months Social determinants Answers: History of substance abuse (ETOH, street drugs, prescription drugs, etc.) Homelessness (street, detention) Lack of community resources and/or lack of social support (no pcp, lives alone, transportation, sonal d) Score: 24 Date Signed: 09/14/2017 04:10 PM Electronically Signed By:Jaycee Edwards LCSW
--- NOTE | 2017-09-14 16:23 | ASMTCMCOM ---
CM Note CM Note Notes: Pt. is a 56-year-old filipino-speaking homeless man admitted from the [facility] with abdominal pain and black stools. Pt. w/ GI bleed. Receiving blood transfusions today. Hx. cirrhosis, ETOHism, pancreatitis, gastritis, esophagitis, and diverticulitis. Per notes, Pt. is a heavy smoker. Pt. has had many ED visits and several inpatient stays at [facility]. SWer met w/ Antoinette fire behavior analyst and Pt. in Pt's room. RN was present during interview. Pt. states he lives in his truck that is immobilized behind his sister's home in [place]. Sister lets him stay behind the house and come in to use the bathroom and shower in the mornings. 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 States he hasn't worked in about a week. Pt. applied for emergency Medicaid (only) with Letha Elias of [place] today. Pt. stated he was doing well with clothes and food, but needed to get an ID. Gave Pt. information about [facility] [place] who will give him an appointment if he calls to come in and work with staff to get his ID. Pt. will either ask his sister to use her address for the ID or use the address of the body shop. Pt. plans to go home by walking to the bus stop and paying his own way home on the bus. RN states that after treatment, Pt. will likely be able to do that. Plan for independent d/c. Date Signed: 09/14/2017 04:22 PM Electronically Signed By:Jaycee Edwards LCSW
--- NOTE | 2017-09-14 16:31 | GHP ---
[f rep st] HISTORY AND PHYSICAL DATE OF ADMISSION: 09/14/2017 CHIEF COMPLAINT: Nausea, vomiting, and black stools. HISTORY OF PRESENT ILLNESS: This is a 56-year-old gentleman with a known prior history of alcoholism and I believe prior history of GI bleeding. Most of the information I have obtained here comes from the EMR and came through an registered nurse teacher although the gentleman was rather passive and could not give great deal of details of his past history. What is known is approximately in the last week he was s een for black and tarry stools at [facility]. After an overnight stay, he was discharg ed to the [facility] where he has been in residence until today when he again had black and tarry stools and was sent to this emergency department where he has been admitted. The quantity of his tarry stools is unknown. I got his admission hemoglobin, it is approximately 5 and thus it may be severe. There is no recent history that he has vomited blood but there is history of melena. The patient through a n registered nurse teacher denies that he is having chest pain, shortness of breath. He admits to nausea and admi ts to some abdominal pain. He denies having fever, cough, although he does have a very strong histor y of tobacco use. He admits that his last alcohol use was approximately 5-7 days ago. Historically, he has had tremors and perhaps a seizure in alcohol withdrawal, although at this point, he is 5 days , if not 7 days, from his last use of alcohol. The quantity of alcohol he states is [address] a day, although the quantity of that I could not obtain from him. PAST MEDICAL HISTORY: 1. Alcohol abuse for many years and quantitated as noted above. 2. He is reported to have cirrhosis although, at this time, I do not have biopsy results to confirm it. 3. There is a history of pancreatitis, gastritis. 4. He is reported to also have diverticulitis in the past. 5. He is said to be homeless. PAST SURGICAL HISTORY: Not obtainable. Medically, he denies that he has asthma, diabetes, coronary artery disease or renal disease. REVIEW OF SYSTEMS: Negative except as noted above. CURRENT MEDICATIONS: Include Tylenol and ibuprofen. When asked why he takes ibuprofen, he reports h e takes it for abdominal pain. FAMILY HISTORY: Positive for alcoholism in his father and brother. SOCIAL HISTORY: He is reported to be a heavy smoker and arrived with a nicotine patch and he histori radha has been known to smoke 2-4 packs of cigarettes a day. Other drugs of abuse are unknown. PHYSICAL EXAMINATION: GENERAL: This is a chronically ill gentleman who appears at this time in no d istress. He is reported to have had melena in the emergency department. VITAL SIGNS: His blood pre ssure is normal, though he has a resting tachycardia at 114, respiratory rate 16 and unlabored and he has normal oxygenation on room air and is afebrile. HEENT: Shows that he has anicteric sclerae. H e has temporal wasting, consistent with chronic illness and poor nutrition. Posterior oropharynx is benign and shows no signs of blood or bleeding. NECK: Supple, without meningismus. CHEST WALL: No ntender to palpation. LUNGS: Diminished breath sounds overall with bibasilar crackles and some expi ratory wheezing. There is no inspiratory wheezing. HEART: A regular rate and rhythm and a tachycar sarai without a gallop but has a short systolic ejection murmur along the LSB. ABDOMEN: Slightly prot uberant. He has active bowel sounds. There is tenderness overall in his entire abdomen with a palpa ble liver which is slightly tender to palpation. Spleen could not be palpated. EXTREMITIES: Thin w ith muscular wasting. No cyanosis or clubbing is noted. LABORATORY: Initial hemoglobin was 5.3 with a white count of 5.1. Chemistry panel is normal with no rmal renal function and sodium. His AST is elevated to 102 and albumin of 3.4. Toxicology screen sh ows an alcohol level less than 10. ASSESSMENT: 1. Acute gastrointestinal bleed with melena and severe anemia secondary to the gastrointestinal blee ding. He has been ordered 2 units of packed red blood cells which are now being infused. He will ad ditionally receive normal saline in between the transfusions as he is mildly hypovolemic. 2. Acute and chronic alcohol abuse with a possible alcohol withdrawal syndrome. I will place him on a CIWA protocol, although he should be beyond the time period of alcohol withdrawal symptoms. By hi s report, his last drink was either 5 or 7 days ago. 3. Noted esophagitis and a history of same. He will be placed on PPI medication. PLAN: Gentleman will be admitted, transfused and given fluid hydration. He is placed on CIWA protoc ol. GI consultation will be obtained with possible endoscopy. There are many questions to answer he re as to this gentleman's social status and social support. Reviewing of his record indicates he has had considerable trouble for a long time with both alcohol withdrawal and potentially homeless statu s. It is noted back approximately a year ago, in September 2016, he was admitted with an episode of acut e pancreatitis. The last endoscopy of note in our system shows an EGD done in 2013 which showed some esophagitis and erosive gastritis but no ulceration. TIME: This admission required 60 minutes. /[id number]/MODL
[2017-09-14 16:46] LABS: INR 1.09 (0.83-1.16); PROTIME(PATIENT) 14.3 SEC (12.0-15.0)
[2017-09-14] MEDS: NICOTINE 21 MG/24 HR PATCH TD SCH (16:48)
[2017-09-14] MEDS ORDERED: HYDROmorphONE/DILAUDID 1 MG/ML INJ IVP PRN (16:53)
[2017-09-14] MEDS: HYDROmorphone HCL/NS 0.5 MG/ML SYR IVP PRN ×2 (17:04→21:24)
[2017-09-14] MEDS: NS 1,000 ML IV SCH (19:32)
--- NOTE | 2017-09-14 19:44 | PDMN ---
Medical Necessity Medical necessity: M182 GIB-lower_ anemia H/H ( 5.3, 18.7), tachycardia, 2 units PRBC ordered, IV fluids, acute on chronic ETOH - abuse - CIWA protocol initiated, GI consult anticipate > 2 midnights ongoing med nec. care, monitoring and tx.
[2017-09-15 05:44] LABS: PLATELET COUNT 375 10^3/uL (150-400)
[2017-09-15 05:51] LABS: INR 1.12 (0.83-1.16); PROTIME(PATIENT) 14.6 SEC (12.0-15.0)
[2017-09-15] MEDS: MULTIVITAMINS 1 EACH TAB PO SCH (07:42)
[2017-09-15] MEDS: NICOTINE 21 MG/24 HR PATCH TD SCH (07:43)
[2017-09-15] MEDS: ACETAMINOPHEN 325 MG TAB PO PRN ×2 (07:52→12:50)
[2017-09-15] MEDS ORDERED: THIAMINE HCL 500 MG in NS 500 ML IV SCH (12:15)
[2017-09-15] MEDS: NS 1,000 ML IV SCH (12:46)
--- NOTE | 2017-09-15 15:23 | HOSPPROG ---
Hospitalist Progress Note Assessment/Plan: 56 yo male admitted with melena and known h/o ETOH abuse and prior ETOH withdrawal syndrome -anemia 2/2 GI bleeding; only 1-2 stools in last 24 hours since admission. S/p 2 units PRBC yet possible continued GI bleeding. Will give 2 more units PRBC -GI bleeding: GI consulted and will see. Last EGD 06/2016 showed severe esophagitis with erosion and stricture. -ETOH abuse and withdrawal syndrome: CIWA protocol -SPCM 2/2 ETOH abuse Plan: -GI consult, PPI meds; CIWA, folate, B12; PRBC Subjective: Belgian speaking only: no complaints 1-2 stools with probably melena. NO chest pain, SOB, abdominal pain, fever, chills Objective: Vital Signs Temp Pulse Resp BP Pulse Ox 36.7 C 80 18 150/94 H 100 09/15/17 14:45 09/15/17 14:45 09/15/17 14:45 09/15/17 14:45 09/15/17 14:45 Laboratory Results 09/15/17 04:30 09/15/17 04:30 09/14/17 09/15/17 09/16/17 05:59 05:59 05:59 Intake Total 1000 3100 Output Total 2070 500 Balance -1070 2600 PT 14.6 SEC (12.0-15.0) 09/15/17 04:30 INR 1.12 (0.83-1.16) 09/15/17 04:30 - Time Spent With Patient Time Spent with Patient: greater than 35 minutes Time Spent with Patient: Greater than 35 minutes spent on this patients care, greater than 50% of time spent counseling, educating, and coordinating care regarding the above mentioned plan. - Pending Discharge Pending Discharge Within 24 Hours: No Pending Discharge Within 48 Hours: Yes Pending Discharge Date: 09/17/17 Pending Discharge Time: 11:00 - Physical Exam Constitutional: no apparent distress, chronically ill appearing Eyes: PERRL, anicteric sclera Ears, Nose, Mouth, Throat: moist mucous membranes, hearing normal Cardiovascular: regular rate and rhythym, no murmur, rub, or gallop Respiratory: no respiratory distress, no rales or rhonchi Gastrointestinal: normoactive bowel sounds, tenderness, other (tenderness in epigastrium; no rebound; lipase normal. no stool at rectum) Skin: warm Musculoskeletal: generalized weakness Neurologic: AAOx3, CN II-XII Intact, other (no asterixes; ) Psychiatric: interacting appropriately ICD10 Worksheet Patient Problems: Problems Problem Status Onset Alcohol withdrawal delirium Active Alcohol withdrawal Acute Headache Acute Alcohol abuse Acute Esophageal cancer Acute Pancreatitis Acute Vomiting Acute Gastrointestinal hemorrhage associated with alcoholic gastritis Acute Microcytic anemia Acute
[2017-09-15] MEDS: PANTOPRAZOLE SODIUM 40 MG VIAL IVP SCH ×2 (15:33→20:09)
[2017-09-15] MEDS ORDERED: LORazepam 0.5 MG TAB PO PRN (17:26)
[2017-09-15] MEDS ORDERED: LORazepam 2 MG/ML INJ IVP PRN (17:29)
[2017-09-15] MEDS: hydrALAZINE 20 MG/ML VIAL IVP PRN (18:24)
[2017-09-15] MEDS: METOPROLOL TARTRATE 25 MG TAB PO SCH (20:09)
[2017-09-15] MEDS: HYDROmorphone HCL/NS 0.5 MG/ML SYR IVP PRN (23:55)
[2017-09-16] MEDS: ACETAMINOPHEN 325 MG TAB PO PRN ×3 (02:19→23:23)
[2017-09-16] MEDS: HYDROmorphone HCL/NS 0.5 MG/ML SYR IVP PRN (04:04)
[2017-09-16 04:46] LABS: PLATELET COUNT 443 10^3/uL (150-400)
[2017-09-16] MEDS: METOPROLOL TARTRATE 25 MG TAB PO SCH ×2 (08:36→21:06)
[2017-09-16] MEDS: PANTOPRAZOLE SODIUM 40 MG VIAL IVP SCH (08:36)
[2017-09-16] MEDS: MULTIVITAMINS 1 EACH TAB PO SCH (08:37)
[2017-09-16] MEDS: NICOTINE 21 MG/24 HR PATCH TD SCH (08:37)
[2017-09-16] MEDS ORDERED: THIAMINE HCL 500 MG in NS 500 ML IV SCH (09:00)
[2017-09-16] MEDS: hydrALAZINE 20 MG/ML VIAL IVP PRN (11:12)
--- NOTE | 2017-09-16 13:21 | PDANEPAE ---
ANE History of Present Illness GI bleeding for EGD ANE Past Medical History - Cardiovascular History Hx Hypertension: No Hx Arrhythmias: No Hx Chest Pain: No Hx CHF / Valvular Disease: No Cardiovascular History Comment: cardiomegaly on CXR, anemia s/p PRBC tx on this admission - Pulmonary History Hx COPD: No Hx Asthma/Reactive Airway Disease: No Hx Oxygen in Use at Home: No Hx Sleep Apnea: No Pulmonary History Comment: sx suggestive of chronic bronchitis - Endocrine History Hx Diabetes: No Hypothyroid: No Hyperthyroid: No Obesity: no - Liver History Hx Hepatic Disorders: Yes Hepatic History Comment: Hx. of EtOh use, pancreatitis - Neurological & Psychiatric Hx Hx Neurological and Psychiatric Disorders: No - GI History GERD: no Hx Gastrointestinal Disorders: Yes Gastrointestinal History Comment: GI bleeding on this admission - Chronic Pain History Chronic Pain: Yes - Surgical History Prior Surgeries: S/P EGD 1 year ago due to GI bleeding ANE Review of Systems Review of Systems: - Exercise capacity METS (RN): 4 METS ANE Patient History - Allergies Allergies/Adverse Reactions: No Known Allergies Allergy (Verified 07/14/17 14:27) - Home Medications Home Medications: Acetaminophen [Tylenol 325mg (*)] 325 mg PO DAILY PRN 09/14/17 [Last Taken Unknown] Aspirin [Aspirin 325 mg (*)] 325 mg PO DAILY PRN 09/14/17 [Last Taken Unknown] Ibuprofen [Motrin (*)] 200 mg PO DAILY PRN 09/14/17 [Last Taken Unknown] - Anes Hx Anes Hx: no prior problems (EGD has been only procedure) - Smoking Hx Smoking Status: Heavy smoker (1/2 ppd up to 4 ppd for about 50 years) - Family Anes Hx Family Anes Hx: none ANE Labs/Vital Signs - Labs Result Diagrams: 09/16/17 04:15 09/16/17 04:15 - Vital Signs Blood Pressure: 141/83 Heart Rate: 83 Respiratory Rate: 14 O2 Sat (%): 97 Height: 157.48 cm Weight: 65.771 kg ANE Physical Exam - Airway Neck exam: FROM Mallampati Score: Class 2 Mouth exam: poor dentition (no upper dentition, no loose teeth) - Pulmonary Pulmonary: clear to auscultation - Cardiovascular Cardiovascular: regular rate and rhythym - ASA Status ASA Status: III ANE Anesthesia Plan Anesthesia Plan: GA with mask
[2017-09-16] MEDS ORDERED: EPINEPHrine 1 MG/ML INJ ONE (13:25)
[2017-09-16] MEDS ORDERED: PROPOFOL 200 MG/20 ML VIAL ONE ×2 (13:36)
[2017-09-16] MEDS ORDERED: fentaNYL 100 MCG/2 ML INJ ONE (13:37)
--- NOTE | 2017-09-16 13:38 | GCON ---
[f rep st] CONSULTATION GI CONSULTATION. DATE OF CONSULTATION: 09/16/2017 REFERRING PHYSICIAN: Tawanda Jung Jr., MD REASON FOR CONSULTATION: Melena. HISTORY OF PRESENT ILLNESS: The patient is a 56-year-old gentleman with a known history of alcoholism and prior upper GI bleeds related to erosive esophagitis, who was admitted to the hospital on the evening of 09/14/2017, with the passage of black tarry stools. He had been briefly hospitalized at [facility] for the same, prior to discharge to [facility], and they transferred him to our emergency room with continued melena. He had no GI evaluation at [facility]. His admission hemoglobin was 5. There was no history of hematemesis, chest pain, or shortness of breath. He did admit to nausea and some abdominal discomfort. His last alcoholic beverage was 1 week prior to admission. MEDICATIONS: Prior to admission included ibuprofen 20 mg p.r.n. aches and pains. Acetaminophen 325 mg p.o. p.r.n. pain, and aspirin 325 mg p.o. p.r.n. pain. ALLERGIES: He has no known drug allergies. PAST MEDICAL HISTORY: Significant for alcohol abuse, history of pancreatitis, history of alcoholic liver disease, history of esophagitis with ulcerations and gastritis, and history of diverticulosis. SURGICAL HISTORY: Unremarkable. SOCIAL HISTORY: Patient is unemployed and homeless. FAMILY HISTORY: Unknown to the patient. REVIEW OF SYSTEMS: With the exception of melena was negative for comprehensive review of systems. PHYSICAL EXAMINATION: VITAL SIGNS: On my examination today, temperature 36.9 Celsius, pulse 83, regular, blood pressure 141/83, respiratory rate 14, O2 saturation 97% on room air. GENERAL: A slight built gentleman, in no apparent distress. INTEGUMENT: Clear. HEENT: Head atraumatic, normocephalic. Pupils equally round, reactive to light. EOMs intact. Sclerae nonicteric. Nares patent. Mucous membranes moist. Dentition fair. NECK: Supple. Trachea midline. LYMPHATICS: No cervical or axillary adenopathy palpated. PULMONARY: Lungs clear to percussion and auscultation. CARDIOVASCULAR: Regular rhythm, rate. Normal S1, S2 without murmur. Peripheral pulses strong bilaterally. No pedal edema. No fluid wave noted, or shifting dullness. GASTROINTESTINAL: Abdomen supple, +BS, non-tender, no HSM or fluid wave. EXTREMITIES: Without deformity. NEURO: Alert, responsive. No focal neurologic deficits. LABS: Hemoglobin on admission 5.3, with transfusion of 4 units of packed red blood cells. Hemoglobin is 11.1 today. Hematocrit was 18.7 on admission, now 37.9, platelets are 334,000. Electrolytes: Normal today with BUN of 5, creatinine 0.4. LFTs today show total bilirubin 0.8, AST 88, ALT 62, ALP 72, lipase on admission 259, amylase 95, lipase yesterday 130. Urine tox screen was negative. Blood alcohol level on admission was less than 10. Abdominal CT scan on admission revealed a small hiatal hernia, with an abnormal appearance of the distal thoracic esophagus, with wall thickening and some edema , and periesophageal fat thickening. There was some shotty periesophageal lymph nodes noticed, the largest measuring 8 mm diameter. There is no evidence of pancreatitis. There is mild hepatic steatosis, though no evidence of cirrhosis. There was constipation. IMPRESSION: 1. Gastrointestinal bleed, likely recurrent esophagitis, albeit, should rule out Carrero's esophagus, EVB or esophageal cancer. 2. Chronic alcoholism. 3. Post hemorrhagic anemia-improved after transfusion of 4 units of packed red blood cells and IV proton pump inhibitor therapy. RECOMMENDATIONS: 1. N.p.o. 2. Esophagogastroduodenoscopy with propofol anesthesia later today. /[id number]/MODL MTDD
[2017-09-16] MEDS ORDERED: NALOXONE HCL 0.4 MG/ML INJ IVP PRN (13:55)
--- NOTE | 2017-09-16 14:02 | ASMTCMCOM ---
CM Note CM Note Notes: Reviewed chart regarding discharge plan of care, pt's progress. GI consulting, pt scheduled for EGD this afternoon. Spoke w/ ROSE Hines, pt will likely need a proton pump inhibitor and an anti-hypertensive upon discharge. Per Flora, pt is employed, but does not have money to cover the cost of the prescriptions. Pt is Uzbek speaking only. CM will need to further discuss prescriptions with pt prior to discharge. Per prior CM notes, pt is homeless and lives in his immobilized truck behind his sister's house. Anticipate pt will likely d/c independently when medically stable. CM will cont to follow for any potential concerns or needs. Current discharge plan: Home independently Date Signed: 09/16/2017 02:01 PM Electronically Signed By:Mary Mercado RN
--- NOTE | 2017-09-16 14:55 | POSTANESTH ---
Post Anesthetic Evaluation Cardiovascular Status: Similar to Pre-Op Cond Respiratory Status: Similar to Pre-op Cond. Level of Consciousness/Mental Status: Can Participate in Eval Pain Control: Adequate, Prn Tx Ordered Nausea/Vomiting Control: Adequate, Prn Tx Ordered Complications Possibly Related to Anesthesia: None Noted
--- NOTE | 2017-09-16 16:00 | HOSPPROG ---
Hospitalist Progress Note Assessment/Plan: 56 yo male admitted with melena and known h/o ETOH abuse and prior ETOH withdrawal syndrome -anemia 2/2 GI bleeding; only 1-2 stools in last 24 hours since admission. Status post 4 units PRBC with good augmentation. Patient does not appear to be actively bleeding at this time as he has had no stool no nausea vomiting or hematemesis. EGD scheduled for today. -GI bleeding: GI consulted and will see. Last EGD 06/2016 showed severe esophagitis with erosion and stricture. -ETOH abuse and withdrawal syndrome: CIWA protocol. No signs of withdrawal or seizure. -SPCM 2/2 ETOH abuse Plan: -endoscopy today. Disposition: Patient lives in a trailer in the y[place] of his sister and baths in his sister's house. He has limited access to healthcare and medications as he has no insurance. He will need PPI meds yet how long he will take this is unclear. Probably discharge 09/17 Subjective: No complaints Objective: Vital Signs Temp Pulse Resp BP Pulse Ox 36.7 C 94 16 167/104 H 98 09/16/17 15:18 09/16/17 15:18 09/16/17 15:18 09/16/17 15:18 09/16/17 15:18 Laboratory Results 09/16/17 04:15 09/16/17 04:15 09/15/17 09/16/17 09/17/17 05:59 05:59 05:59 Intake Total 1000 5880 650 Output Total 2070 1550 650 Balance -1070 4330 0 PT 14.6 SEC (12.0-15.0) 09/15/17 04:30 INR 1.12 (0.83-1.16) 09/15/17 04:30 - Time Spent With Patient Time Spent with Patient: greater than 35 minutes Time Spent with Patient: Greater than 35 minutes spent on this patients care, greater than 50% of time spent counseling, educating, and coordinating care regarding the above mentioned plan. - Pending Discharge Pending Discharge Within 24 Hours: Yes Pending Discharge Date: 09/17/17 Pending Discharge Time: 11:00 - Physical Exam Constitutional: no apparent distress, chronically ill appearing Eyes: PERRL, anicteric sclera Ears, Nose, Mouth, Throat: moist mucous membranes, hearing normal Cardiovascular: regular rate and rhythym, no murmur, rub, or gallop Respiratory: no respiratory distress, no rales or rhonchi, clear to auscultation , reduced air movement Gastrointestinal: normoactive bowel sounds, soft, non-tender abdomen, tenderness (epigastric tenderness) Genitourinary: no bladder fullness Skin: warm Musculoskeletal: full muscle strength, generalized weakness Neurologic: AAOx3 ICD10 Worksheet Patient Problems: Problems Problem Status Onset Alcohol withdrawal delirium Active Alcohol withdrawal Acute Headache Acute Alcohol abuse Acute Esophageal cancer Acute Pancreatitis Acute Vomiting Acute Gastrointestinal hemorrhage associated with alcoholic gastritis Acute Microcytic anemia Acute
[2017-09-16] MEDS: PANTOPRAZOLE SODIUM 40 MG TAB PO SCH (21:05)
[2017-09-17 04:51] LABS: PLATELET COUNT 421 10^3/uL (150-400)
[2017-09-17] MEDS: PANTOPRAZOLE SODIUM 40 MG TAB PO SCH (08:21)
[2017-09-17] MEDS: METOPROLOL TARTRATE 25 MG TAB PO SCH (08:21)
[2017-09-17] MEDS: NICOTINE 21 MG/24 HR PATCH TD SCH (08:21)
[2017-09-17] MEDS: MULTIVITAMINS 1 EACH TAB PO SCH (08:21)
[2017-09-17] MEDS: ACETAMINOPHEN 325 MG TAB PO PRN (09:31)
[2017-09-17 12:29] VITALS: BP 133/88
--- NOTE | 2017-09-17 14:24 | GDS ---
[f rep st] DISCHARGE SUMMARY DISCHARGE DIAGNOSES: Include: 1. Acute gastrointestinal bleed secondary to esophageal ulceration. 2. Anemia secondary to acute blood loss, status post transfusion x4 units. 3. Chronic alcohol abuse. HISTORY OF PRESENT ILLNESS: A 56-year-old male, with extensive history of alcohol abuse, who present s with complaints of melena. For details of the patient's initial presentation. Please see the Histo ry and Physical dated 09/14/2017. CONSULTATIVE SERVICES: Gastroenterology. PROCEDURES: On 09/16/2017, patient underwent EGD with visualization of a bland ulceration in the eso phagus. HOSPITAL COURSE BY ISSUE: 1. Acute upper GI bleed, presumed secondary to esophageal ulcerations. Patient is to be initiated o n b.i.d. PPI x3 months and follow in the outpatient setting with Gastroenterology for re-scoping. He has received assistance from Case Management to obtain his medications and will follow at [facility] in the outpatient setting. 2. Alcohol abuse. This is a longstanding comorbidity for this patient and certainly complicating [facility] overall health. We did discuss the importance of alcohol cessation in the setting of esophageal ul cerations. He is being provided outpatient resources for assistance. 3. Anemia secondary to acute blood loss. Patient did receive 4 units of blood transfusion during [facility] hospital stay. On the day of disposition, his hemoglobin is stable at 11.0. PENDING STUDIES: At the time of this dictation include biopsies obtained during the EGD on 8, which are pending at the time of discharge. [facility] will be following those biopsy resu lts in the outpatient setting. FOLLOWUP APPOINTMENTS: Include: 1. With [facility] in the next 7-10 days for his 1st blood check and post disposition followup. 2. With [facility] in the next 10-12 weeks before completion of his 3 months of pantoprazole for repeat EGD. I spent greater than 30 minutes in the planning and coordination of this discharge. /[id number]/MODL
[2017-09-18] MEDS ORDERED: THIAMINE HCL 100 MG TAB PO SCH (10:56)
== END 2017-09-17 13:45 | disposition home or self-care (01) | DRG 381 ==
LOC: F3E 11:05
PROVIDERS: ADMIT Internal Medicine; ATTEND Hospitalist
PROC: 30233N1 Transfusion of Nonautologous Red Blood Cells into Peripheral Vein, Percutaneous Approach (ICD-10-PCS; 2017-09-14)
PROC: 0DB58ZX Excision of Esophagus, Via Natural or Artificial Opening Endoscopic, Diagnostic (ICD-10-PCS; principal; 2017-09-16 13:45)
DX: K22.11 Ulcer of esophagus with bleeding (principal); D62 Acute posthemorrhagic anemia; F10.20 Alcohol dependence, uncomplicated; R10.13 Epigastric pain; F17.210 Nicotine dependence, cigarettes, uncomplicated; K92.1 Melena; E86.9 Volume depletion, unspecified; K29.70 Gastritis, unspecified, without bleeding; K44.9 Diaphragmatic hernia without obstruction or gangrene; K70.9 Alcoholic liver disease, unspecified; R00.0 Tachycardia, unspecified; Z59.0 Homelessness
CPT/HCPCS: 80305; 96374; G0480; J0171; J0360; J1170; J2060; J2405; J2704; J3010; J3411; P9016; Q9967

== ENCOUNTER 2018-08-20 10:22 | Inpatient (IN) | payer MEDICAID ==
[2018-08-20] MEDS: FAMOTIDINE 20 MG/NACL 50 ML IV SCH (10:25)
[2018-08-20] MEDS ORDERED: ONDANSETRON 4 MG/2 ML VIAL IVP ONE (10:54)
[2018-08-20] MEDS ORDERED: NS 1,000 ML IV ONE (10:54)
[2018-08-20 12:07] LABS: PLATELET COUNT 194 10^3/uL (150-400)
--- NOTE | 2018-08-20 12:31 | EDPHY ---
General Time Seen by Provider: 08/20/18 10:39 Narrative: CLINICAL IMPRESSION: Alcohol abuse ASSESSMENT/PLAN: 57-year-old alcoholic male, familiar to this provider, presents to the emergency department after share of reportedly brought to the [facility] to the [facility] from [facility]. Patient was reportedly incarcerated for the last 3 days related to alcohol charges. He apparently had a seizure in [facility] today. He is homeless. He is well known to the [employer] [place] [employer]. He lives in [place]. He has no physical complaints today aside from the fact that he has not had anything to eat or drink. No intraoral laceration, tongue laceration, continence of urine or stool. Patient is not intoxicated has a nonfocal neurological exam. No complaints of chest pain, shortness of breath, abdominal pain nausea or vomiting. Lab work reassuring. Patient was tolerating water and crackers. He is requesting discharge to his sister's house in [place]. Case management is working on arranging this. Encouraged primary care recheck. Warning signs return to ED outlined discharge DIFFERENTIAL DX: Differential diagnosis for this patient includes but not limited to alcohol intoxication, alcohol abuse, alcohol withdrawal, other substance abuse or withdrawal, toxidrome or medication overdose, CVA, head trauma, hyponatremia, hypoglycemia or other electrolyte abnormality. ED PROCEDURES: See lab and/or imaging results below ED COURSE: CHIEF COMPLAINT: Questionable delusions, questionable seizure activity HPI: 57-year-old alcoholic Nepali-speaking only male presents to the emergency department after he was dropped off by the police from [facility]. Patient was incarcerated for the last 3 days related to alcohol charges. He states he is supposed to go to court. It is unclear why the patient was brought to the ER. There are vague reports that he may have sustained a seizure in the [facility]. He has known history of alcohol abuse but reports he has not had a drink for 3 days. He has no physical complaints. He did not bite his tongue or and was not incontinent of urine or stool. He has not had much to eat or drink and reports no abdominal pain, fever, chills, headache, chest pain, shortness of breath nausea or vomiting PAST MEDICAL HISTORY: Alcohol abuse See nurse/triage notes for additional history if applicable Pertinent Past Surgical History: None reported Family History: Has a sister in [place] Social History: Abuses alcohol, homeless, Nepali-speaking only REVIEW OF SYSTEMS: All other systems negative Constitutional: No fever, no chills, appetite change. Eyes: No discharge, vision change ENT: No sore throat, congestion, ear pain. Cardiovascular: No chest pain, no palpitations. Respiratory: No cough, no shortness of breath. Gastrointestinal: No abdominal pain, no vomiting, diarrhea. Genitourinary: No hematuria, dysuria, flank pain, pelvic pain Musculoskeletal: No back pain, joint swelling, joint pain, myalgias. Skin: No rashes, color change. Neurological: No headache, dizziness, weakness. PHYSICAL EXAM: General Appearance: Alert, oriented, appropriate, cooperative, disheveled, dirty, NAD, well hydrated, non-toxic appearing, hypertensive, heart rate on my evaluation was 95, no hypoxia. HEENT: TMs are clear bilaterally no perforation or FB, no injection, no evidence of serous or mucopurulent otitis. Oropharynx clear is no erythema or exudates, no tonsillar hypertrophy or asymmetry. Dentition without abnormality. No evidence of scalp hematoma or trauma Eyes: PERRLA, cataracts noted no acute vision change, nystagmus, swelling, discharge, pain or photosensitivity. Conjunctiva pink, no pallor or injection Neck: Supple, nontender, no lymphadenopathy, no midline pain, FROM, no meningismus. Respiratory: There are no retractions, lungs are clear to auscultation. No chest wall pain to palpation Cardiac: Regular rate and rhythm, no murmurs or gallops. Gastrointestinal: Abdomen is soft, nontender, bowel sounds normal, no masses/ hernia, no rigidity, guarding or focal peritoneal findings. Neurological: [ Alert and oriented x 3, CN 2-12 grossly intact Skin: Warm, dry, no rashes, no nodules on palpation. Musculoskeletal: Extremities are symmetrical, full range of motion, no tenderness, deformity, swelling, or erythema. Psychiatric: Patient is oriented X 3, there is no agitation. MEDICAL DECISION MAKING: Patient was seen independently. Secondary supervising physician at time of evaluation was Dr. Peterson . Diagnosis: Alcohol abuse . New, requires workup Summary: See Assessment and Plan for summary of ED visit Clinical lab tests: ordered / reviewed. Independent visualization of images, tracing, or specimens: Did not obtain. Decision to obtain medical records or history from someone other than the patient: No Review / Summarize previous medical records: Reviewed past hospital notes Discussed patient with another provider: Discussed with case management Patient Progress: Stable for discharge. - History Smoking Status: Heavy smoker - Objective Vital Signs: Initial Vital Signs Temperature (C) 36.3 C 08/20/18 10:29 Heart Rate 129 H 08/20/18 10:29 Respiratory Rate 17 08/20/18 10:29 Blood Pressure 155/89 H 08/20/18 10:29 O2 Sat (%) 96 08/20/18 10:29 O2 Delivery Mode Room Air Allergies/Adverse Reactions: No Known Allergies Allergy (Verified 08/20/18 10:28) Home Medications: Medication Instructions Recorded Acetaminophen [Tylenol 325mg (*)] 325 mg PO DAILY PRN 09/14/17 Pantoprazole Sodium [Protonix] 40 mg PO BID #60 tablet. 09/17/17 Laboratory Results: Laboratory Results 08/20/18 11:11 08/20/18 11:11 08/20/18 08/20/18 11:11 11:11 WBC 7.18 10^3/uL 10^3/uL (3.80-9.50) RBC 5.21 10^6/uL 10^6/uL (4.40-6.38) Hgb 11.5 g/dL L g/dL (13.7-17.5) Hct 37.5 % L % (40.0-51.0) MCV 72.0 fL L fL (81.5-99.8) MCH 22.1 pg L pg (27.9-34.1) MCHC 30.7 g/dL L g/dL (32.4-36.7) RDW 26.1 % H % (11.5-15.2) Plt Count 194 10^3/uL 10^3/uL (150-400) MPV TNP Neut % (Auto) 76.4 % H % (39.3-74.2) Lymph % (Auto) 11.0 % L % (15.0-45.0) Preston % (Auto) 10.0 % % (4.5-13.0) Eos % (Auto) 1.7 % % (0.6-7.6) Baso % (Auto) 0.3 % % (0.3-1.7) Nucleat RBC Rel Count 0.0 % % (0.0-0.2) Absolute Neuts (auto) 5.49 10^3/uL 10^3/uL (1.70-6.50) Absolute Lymphs (auto) 0.79 10^3/uL L 10^3/uL (1.00-3.00) Absolute Monos (auto) 0.72 10^3/uL 10^3/uL (0.30-0.80) Absolute Eos (auto) 0.12 10^3/uL 10^3/uL (0.03-0.40) Absolute Basos (auto) 0.02 10^3/uL 10^3/uL (0.02-0.10) Absolute Nucleated RBC 0.00 10^3/uL 10^3/uL (0-0.01) Immature Gran % 0.6 % % (0.0-1.1) Immature Gran # 0.04 10^3/uL 10^3/uL (0.00-0.10) Platelet Estimate ADEQUATE (ADEQ) Polychromasia 1+ H Hypochromasia 1+ H Microcytic Cells 1+ H Oval Macrocytes 1+ H Elliptocytes 1+ H Sodium 136 mEq/L mEq/L (135-145) Potassium 4.0 mEq/L mEq/L (3.5-5.2) Chloride 99 mEq/L mEq/L (97-110) Carbon Dioxide 23 mEq/l mEq/l (22-31) Anion Gap 14 mEq/L mEq/L (6-14) BUN 15 mg/dL mg/dL (7-23) Creatinine 0.8 mg/dL mg/dL (0.7-1.3) Estimated GFR > 60 Glucose 123 mg/dL H mg/dL (70-100) Calcium 10.0 mg/dL mg/dL (8.5-10.4) Specimen Hemolysis 154 Medications Given: Discontinued Medications Sodium Chloride (Ns) 1,000 mls @ 0 mls/hr IV EDNOW ONE; Wide Open PRN Reason: Protocol Stop: 08/20/18 10:55 Last Admin: 08/20/18 11:12 Dose: 1,000 mls Ondansetron HCl (Zofran) 4 mg IVP EDNOW ONE Stop: 08/20/18 10:55 Last Admin: 08/20/18 11:12 Dose: 4 mg Departure - Departure Disposition: Home, Routine, Self-Care Clinical Impression: Alcohol abuse Condition: Good Instructions: Abuse of Alcohol (ED) Additional Instructions: DISCHARGE INSTRUCTIONS FROM YOUR DOCTOR Thank you for visiting our emergency department today. You were treated by a physician medical assistant instructor today and your case was reviewed with our ED Attending physician. Please keep in mind that discharge from the emergency department does not mean that there is nothing wrong - it simply means that we have not identified an emergency condition that requires further evaluation or treatment in the hospital. You should always plan to follow up with primary care for re- evaluation of your condition in the next 2-3 days. If you have been referred to a specialist, please call as soon as possible (today or tomorrow) to schedule your follow up appointment at the appropriate time. LAB WORK IN THE EMERGENCY DEPARTMENT IS REASSURING. PLEASE ABSTAIN FROM USING ALCOHOL. [facility] PROVIDED YOU RESOURCES FOR ALCOHOL ABUSE AND CARE HOME INFORMATION. PLEASE FOLLOW-UP WITH A PRIMARY CARE PROVIDER. RETURN TO THE EMERGENCY DEPARTMENT FOR ANY OTHER CONCERNS. People present with illnesses and injuries in different ways, and it is always possible that we have missed something. You may always return for re-evaluation if symptoms worsen or if they are not improving or if you develop new/different symptoms. Again, thank you for choosing our emergency department. We hope that you feel better. INSTRUCCIONES DEL SHIV DE FLOR MDICO Mar por visitar nuestro departamento de emergencias ivette. Usted fue atendido por un asistente mdico ivette y flor merari fue revisado con nuestro mdico de urgencias. Tenga en cuenta que el shiv del departamento de emergencias no significa que no haya nada mac, simplemente significa que no hemos identificado bk condicin de emergencia que requiera bk evaluacin o tratamiento adicional en el hospital. Siempre debe planificar un seguimiento con atencin primaria para la reevaluacin de flor condicin en los prximos 2 a 3 flores. Si monaco sido referido a un especialista, llame lo antes posible (hoy o ma andrea) para programar flor felisha de seguimiento en el momento adecuado. LOS ANALISIS DEL LABORATORIO EN EL DEPARTAMENTO DE EMERGENCIA ES TRANQUILIZADOR. Por favor, abstngase de usar alcohol. LA TRABAJADORA SOCIAL LE [place] PROPORCION RECURSOS PARA EL ABUSO DE ALCOHOL Y LA INFORMACIN DE SOLA FAVOR DE SEGUIR CON UN PROVEEDOR DE CUIDADO PRIMARIO. VOLVA AL DEPARTAMENTO DE EMERGENCIA POR OTRAS PREOCUPACIONES. Las personas presentan con enfermedades y lesiones de diferentes maneras, y siempre es posible que hayamos perdido algo. Siempre puede regresar para bk nueva evaluacin si los sntomas empeoran, si no mejoran o si presenta sntomas nuevos o diferentes. Nuevamente, mar por elegir nuestro departamento de emergencias. Esperamos que te sientas mejor. Referrals: NONE *PRIMARY CARE P,. [Primary Care Provider] - As per Instructions [facility] [Clinic] - 1-2 days without fail
[2018-08-20] MEDS ORDERED: FOLIC ACID 1 MG TAB PO ONE (15:33)
[2018-08-20] MEDS ORDERED: THIAMINE HCL 100 MG TAB PO ONE (15:33)
[2018-08-20] MEDS ORDERED: ONDANSETRON 4 MG/2 ML VIAL IVP PRN (19:09)
[2018-08-20] MEDS ORDERED: NS 500 ML IV PRN (19:12)
[2018-08-20] MEDS ORDERED: FLUMAZENIL 0.5 MG/5 ML MDV IVP PRN (19:12)
[2018-08-20] MEDS ORDERED: NS 1,000 ML IV SCH (19:15)
--- NOTE | 2018-08-20 19:28 | PDGENHP ---
History and Physical - Chief Complaint Confusion, weakness - History of Present Illness Patient is a 57-year-old male with past medical history of alcohol dependence who was brought from the local care home. Per the ER report the patient was incarcerated for the last 3 days related to alcohol. The patient relates to me that he has had an episode of vomiting but otherwise the patient is fairly confused and unable to tell me why he is in the hospital. He has not had a drink for about the last 3 days because he has been incarcerated. He does seem to have a mild cough. He is not complaining of any pain to me. He actually has no physical complaints currently. He denies any headache, fevers, chills, nausea, vomiting, abdominal pain, diarrhea or really any symptoms and is not able to give me any kind of accurate history as to why he is here. History Information - Allergies/Home Medication List Allergies/Adverse Reactions: No Known Allergies Allergy (Verified 08/20/18 10:28) Home Medications: Acetaminophen [Tylenol ES 500 mg (*)] 1,000 mg PO HS PRN 08/20/18 [Last Taken Unknown] Ibuprofen [Motrin (*)] 400 mg PO DAILY 08/20/18 [Last Taken Unknown] I have personally reviewed and updated: family history, medical history, social history, surgical history - Past Medical History coronary artery disease, hypertension Additional medical history: alcohol abuse, cirrhosis, pancreatitis, acute alcohol withdrawal - Surgical History Reports: no pertinent surgical hx Additional surgical history: EGD in June of 2016 demonstrating inflammation but no malignant cells - Family History Positive for: CAD Additional family history: father and sibling with alcoholism - Social History Smoking Status: Heavy smoker Additional social history: normally independent in his ADLs Review of Systems Review of Systems: ROS: 10pt was reviewed & negative except for what was stated in HPI & below Physical Exam Physical Exam: Temp Pulse Resp BP Pulse Ox 36.4 C 104 H 18 123/83 H 95 08/20/18 16:48 08/20/18 16:48 08/20/18 16:48 08/20/18 16:48 08/20/18 16:48 Constitutional: no apparent distress, appears nourished, not in pain Eyes: PERRL, anicteric sclera, EOMI Ears, Nose, Mouth, Throat: moist mucous membranes, hearing normal, ears appear normal, no oral mucosal ulcers Cardiovascular: regular rate and rhythym, no murmur, rub, or gallop, No edema Respiratory: no respiratory distress, no rales or rhonchi, clear to auscultation Gastrointestinal: normoactive bowel sounds, soft, non-tender abdomen, no palpable masses Genitourinary: no bladder fullness, no bladder tenderness Skin: warm, normal color, no rashes or abrasions, no fluctuance, no induration, No mottled Musculoskeletal: full muscle strength, no muscle tenderness, normal joint ROM, no joint effusions Neurologic: other (Oriented to name but otherwise not able to tell me where he is or what year it is) Psychiatric: encephalopathic, poor judgement, poor memory Lymph, Heme, Immunologic: no cervical LAD, no supraclavicular LAD Lab Data & Imaging Review 08/20/18 11:11 08/20/18 11:11 WBC 7.18 10^3/uL (3.80-9.50) 08/20/18 11:11 RBC 5.21 10^6/uL (4.40-6.38) 08/20/18 11:11 Hgb 11.5 g/dL (13.7-17.5) L 08/20/18 11:11 Hct 37.5 % (40.0-51.0) L 08/20/18 11:11 MCV 72.0 fL (81.5-99.8) L 08/20/18 11:11 MCH 22.1 pg (27.9-34.1) L 08/20/18 11:11 MCHC 30.7 g/dL (32.4-36.7) L 08/20/18 11:11 RDW 26.1 % (11.5-15.2) H 08/20/18 11:11 Plt Count 194 10^3/uL (150-400) 08/20/18 11:11 MPV TNP 08/20/18 11:11 Neut % (Auto) 76.4 % (39.3-74.2) H 08/20/18 11:11 Lymph % (Auto) 11.0 % (15.0-45.0) L 08/20/18 11:11 [place] % (Auto) 10.0 % (4.5-13.0) 08/20/18 11:11 Eos % (Auto) 1.7 % (0.6-7.6) 08/20/18 11:11 Baso % (Auto) 0.3 % (0.3-1.7) 08/20/18 11:11 Nucleat RBC Rel Count 0.0 % (0.0-0.2) 08/20/18 11:11 Absolute Neuts (auto) 5.49 10^3/uL (1.70-6.50) 08/20/18 11:11 Absolute Lymphs (auto) 0.79 10^3/uL (1.00-3.00) L 08/20/18 11:11 Absolute Monos (auto) 0.72 10^3/uL (0.30-0.80) 08/20/18 11:11 Absolute Eos (auto) 0.12 10^3/uL (0.03-0.40) 08/20/18 11:11 Absolute Basos (auto) 0.02 10^3/uL (0.02-0.10) 08/20/18 11:11 Absolute Nucleated RBC 0.00 10^3/uL (0-0.01) 08/20/18 11:11 Immature Gran % 0.6 % (0.0-1.1) 08/20/18 11:11 Immature Gran # 0.04 10^3/uL (0.00-0.10) 08/20/18 11:11 Platelet Estimate ADEQUATE (ADEQ) 08/20/18 11:11 Polychromasia 1+ H 08/20/18 11:11 Hypochromasia 1+ H 08/20/18 11:11 Microcytic Cells 1+ H 08/20/18 11:11 Oval Macrocytes 1+ H 08/20/18 11:11 Elliptocytes 1+ H 08/20/18 11:11 Sodium 136 mEq/L (135-145) 08/20/18 11:11 Potassium 4.0 mEq/L (3.5-5.2) 08/20/18 11:11 Chloride 99 mEq/L (97-110) 08/20/18 11:11 Carbon Dioxide 23 mEq/l (22-31) 08/20/18 11:11 Anion Gap 14 mEq/L (6-14) 08/20/18 11:11 BUN 15 mg/dL (7-23) 08/20/18 11:11 Creatinine 0.8 mg/dL (0.7-1.3) 08/20/18 11:11 Estimated GFR > 60 08/20/18 11:11 Glucose 123 mg/dL (70-100) H 08/20/18 11:11 Calcium 10.0 mg/dL (8.5-10.4) 08/20/18 11:11 Specimen Hemolysis 154 08/20/18 11:11 Assessment & Plan Assessment: 57-year-old male with past medical history of alcohol abuse dropped off by the local care home for unknown reason.patient found to be confused Alcohol abuse- patient has a longstanding history of alcohol abuse with multiple admissions for the same. Also history of GI bleeds. Last drink at least 3 days ago because he was in care home per the ER report. No current evidence of acute withdrawal -CIWA monitoring -advised the nurses to be judicious with Ativan as he seems fairly confused Encephalopathy- may be related to Wernicke encephalopathy, or metabolic encephalopathy although his labs look fairly unremarkable. He has no focal neurologic deficits on examination. No evidence of infection currently although still waiting a urinalysis and a chest x-ray. -urinalysis -check chest x-ray in the morning -if mental status does not resolve consider CT head Nausea vomiting- he has a benign examination. He complains of no abdominal pain. Vitals are within normal limits on all of his labs are also pretty unremarkable. Will check a GI panel and put him on a clear diet overnight. Prophylaxis- SCDs and Lovenox Fluids- normal saline Electrolytes- within normal limits Nutrition- clear diet Cor- patient unable to reliably give cor status will make full for now Dispo- observation for encephalopathy and possible alcohol withdrawal
--- NOTE | 2018-08-20 19:36 | ASMTCMCOM ---
CM Note CM Note Notes: Pt presented to the ED through triage for AMS after being dropped off by law enforcement. Pt reportedly was just released from care home where he has been for the past 3 days. Pt calm, cooperative and pleasant. CM was requested to assist pt with returning home (pt lives in an truck behind his sister Cyndy's house in [place]). CM was accompanied by Cristin, Medical Lead Assembler, and spoke w/pt about discharge options (to his sister's house vs. [facility] in [place] vs. to his PCP clinic [facility] in [place]). Pt stated he wanted to go to his sister's house but couldn't remember her phone number, address or the nearest major cross street but pt stated he knew how to get there by bus. This CM offered pt a bus pass and pt was getting ready to discharge when he became unsteady on his feet. Pt was reassessed and ultimately was not safe to discharge. Pt continued to be unsteady on his feet and also vomited while in the ED. Pt has a long history of ETOH abuse. Please see past CM Reports 09/14 & 09/16/17, ED CM Note 11/19/16,and Spiritual Services Note 09/14/17 & 10/20/16 Pt is also frequently seen at [facility] ED. Pt admitted for nausea, vomiting and possible Wenicke's encephelopathy. Per ED Report, there were vague reports of pt possible having had a seizure while in care home. Pt reports his last drink was 3 days ago. Pt states he attends AA meetings. Pt had a couple of contact cards which included: - Michael Hurtado, Plan Examiner at [facility] ([phone]) in [place] - Connie Rosales, Phone Circuit Operator / Collections Attorney at [facility] ([phone]) This CM did not have an opportunity to reach out to the above listed contacts. Exact DC needs TBD. CM to follow. Date Signed: 08/20/2018 07:35 PM Electronically Signed By:Jaycee Snowden RN
--- NOTE | 2018-08-20 19:39 | ASMTLACE ---
SARAH BETH Acuity / Level of Answers: No Care: Did the patient have an inpatient admission? Comorbidities - select Answers: Moderate or severe liver all that apply or renal disease Other Notes: Hx of GI bleed, anemia, pancreat iti s, gastritis, # of Emergency department Answers: 1-2 visits in the last 6 months Social determinants Answers: History of substance abuse (ETOH, street drugs, prescription drugs, etc.) Homelessness (street, senior living) Lack of community resources and/or lack of social support (no pcp, lives alone, transportation, sonal d) Score: 16 Date Signed: 08/20/2018 07:38 PM Electronically Signed By:Jaycee Snowden RN
[2018-08-20] MEDS: ONDANSETRON DISINTEGRATING 4 MG TAB PO PRN (19:46)
[2018-08-20] MEDS: THIAMINE HCL 500 MG in NS 100 ML IV SCH (21:41)
[2018-08-21] MEDS: LORazepam 2 MG/ML INJ IVP PRN ×4 (00:01→14:59)
[2018-08-21] MEDS: NICOTINE 21 MG/24 HR PATCH TD SCH ×2 (03:45→08:13)
[2018-08-21] MEDS: THIAMINE HCL 500 MG in NS 100 ML IV SCH ×3 (05:52→22:09)
[2018-08-21 05:59] LABS: PLATELET COUNT 155 10^3/uL (150-400)
[2018-08-21] MEDS: FAMOTIDINE 20 MG/NACL 50 ML IV SCH ×2 (08:06→21:22)
[2018-08-21] MEDS: ENOXAPARIN 40 MG/0.4 ML SYR SC SCH (08:13)
[2018-08-21] MEDS: ACETAMINOPHEN 325 MG TAB PO PRN (08:19)
[2018-08-21] MEDS ORDERED: THIAMINE HCL 500 MG in NS 100 ML IV SCH (09:00)
[2018-08-21] MEDS ORDERED: MAGNESIUM SULF 2 GM/WATER 50 ML IV ONE (11:57)
[2018-08-21] MEDS ORDERED: PROTOCOL POTASSIUM 1 DOSE MISC PRN (11:57)
[2018-08-21] MEDS ORDERED: PROTOCOL MAGNESIUM 1 DOSE IV PRN (11:57)
--- NOTE | 2018-08-21 12:05 | HOSPPROG ---
Hospitalist Progress Note Assessment/Plan: 57-year-old male with past medical history of alcohol abuse dropped off by the local residential for unknown reason.patient found to be confused #Acute alcohol withdrawal #Acute metabolic Encephalopathy #Hypokalemia #Hypomagnesemia #Anemia, microcytic Plan: Overall improving but still with Encephalopathy Cont CIWA Cont Thiamine Cont IVF Replace electrolytes change to inpatient Subjective: no cp or sob. still with WD symtoms. Still confused Objective: Vital Signs Temp Pulse Resp BP Pulse Ox 35.7 C L 87 20 118/76 96 08/21/18 11:21 08/21/18 11:21 08/21/18 11:21 08/21/18 11:21 08/21/18 11:21 Laboratory Results 08/21/18 05:15 08/21/18 05:15 08/20/18 08/21/18 08/22/18 05:59 05:59 05:59 Intake Total 300 Output Total 800 Balance -800 300 - Physical Exam Constitutional: no apparent distress Eyes: PERRL, EOMI Ears, Nose, Mouth, Throat: moist mucous membranes Cardiovascular: regular rate and rhythym, No edema Respiratory: no respiratory distress, no rales or rhonchi, clear to auscultation Gastrointestinal: normoactive bowel sounds Skin: warm Psychiatric: encephalopathic Lymph, Heme, Immunologic: No petechiae ICD10 Worksheet Patient Problems: Problems Problem Status Onset Alcohol abuse Acute Alcohol withdrawal delirium Active Alcohol withdrawal Acute Esophageal cancer Acute Gastrointestinal hemorrhage associated with alcoholic gastritis Acute Headache Acute Microcytic anemia Acute Pancreatitis Acute Vomiting Acute
[2018-08-21] MEDS: ONDANSETRON DISINTEGRATING 4 MG TAB PO PRN (12:35)
--- NOTE | 2018-08-21 15:09 | PDMN ---
Medical Necessity Medical necessity: Change to IP, as of 08/21/18, per & MCG [id number]; los >2 mn for ongoing management of alcohol withdrawal w/acute metabolic encephalopathy, hypokalemia, hypomagnesemia & anemia; requiring further monitoring, CIWA protocol, IVFs, electrolyte replacement & follow-up labs
[2018-08-21] MEDS: POTASSIUM Cl (KCl) 100 ML IV SCH ×2 (22:05→22:06)
[2018-08-22] MEDS: THIAMINE HCL 500 MG in NS 100 ML IV SCH ×3 (05:37→22:51)
[2018-08-22] MEDS: LORazepam 2 MG/ML INJ IVP PRN ×2 (05:38→12:38)
[2018-08-22 05:51] LABS: INR 1.11 (0.83-1.16); PROTIME(PATIENT) 13.9 SEC (12.0-15.0)
[2018-08-22] MEDS ORDERED: POTASSIUM CL 10 MEQ TAB PO ONE ×2 (07:12→20:28)
[2018-08-22] MEDS ORDERED: MAGNESIUM SULF 1 GM/DEXTROSE 100 ML IV ONE ×2 (07:13→07:14)
[2018-08-22] MEDS: NICOTINE 21 MG/24 HR PATCH TD SCH (07:33)
[2018-08-22] MEDS: ENOXAPARIN 40 MG/0.4 ML SYR SC SCH (07:33)
[2018-08-22] MEDS: FAMOTIDINE 20 MG/NACL 50 ML IV SCH ×2 (09:32→22:26)
[2018-08-22] MEDS: ACETAMINOPHEN 325 MG TAB PO PRN (12:39)
[2018-08-22] MEDS ORDERED: LORazepam 1 MG TAB PO PRN (13:57)
--- NOTE | 2018-08-22 14:02 | HOSPPROG ---
Hospitalist Progress Note Assessment/Plan: 57-year-old male with past medical history of alcohol abuse dropped off by the local halfway for unknown reason.patient found to be confused #Acute alcohol withdrawal, improving #Acute metabolic Encephalopathy, resolving #Hypokalemia, ongoing #Hypomagnesemia, ongoing #WENDY: start iron replacement Plan: cont CIWA stop IV Ativan, start PO Ativan as needed start iron PO replace electrolytes stop IVF Cont Thiamine anticipate d/c tomorrow cont inpatient Subjective: decreased ativan needs, given IV. Confusion is much better. no cp or sob. Objective: Vital Signs Temp Pulse Resp BP Pulse Ox 36.5 C 84 16 126/87 H 96 08/22/18 11:55 08/22/18 11:55 08/22/18 11:55 08/22/18 11:55 08/22/18 11:55 Laboratory Results 08/21/18 12:55 08/22/18 05:10 08/21/18 08/22/18 08/23/18 05:59 05:59 05:59 Intake Total 400 Output Total 1600 Balance 400 -1600 PT 13.9 SEC (12.0-15.0) 08/22/18 05:10 INR 1.11 (0.83-1.16) 08/22/18 05:10 - Physical Exam Constitutional: no apparent distress Eyes: PERRL, EOMI Ears, Nose, Mouth, Throat: moist mucous membranes, hearing normal Cardiovascular: regular rate and rhythym, No edema Respiratory: no respiratory distress, no rales or rhonchi, clear to auscultation Gastrointestinal: normoactive bowel sounds, soft, non-tender abdomen Skin: warm Psychiatric: interacting appropriately, not anxious, encephalopathic Lymph, Heme, Immunologic: No petechiae ICD10 Worksheet Patient Problems: Problems Problem Status Onset Alcohol abuse Acute Alcohol withdrawal delirium Active Alcohol withdrawal Acute Esophageal cancer Acute Gastrointestinal hemorrhage associated with alcoholic gastritis Acute Headache Acute Microcytic anemia Acute Pancreatitis Acute Vomiting Acute
--- NOTE | 2018-08-22 15:03 | ASMTCMCOM ---
CM Note CM Note Notes: CM met w/ pt with a sales and service consultant. Pt reports that he is court ordered to go to AA M,W,F. Pt is not interested in any etoh resources since he is already going to AA. CM made pt a follow up w/ his PCP with oLri Maurer. Referral made to [facility]. Pt reports that he lives out of his car behind his sister's home. Pt reports that his other sister lives nearby. Therapies have cleared pt to d/c without any needs. CM available for changes. Plan: Independent Please follow up with: Lori maurer [address] [place] [id number] Landis 08/27/18 at 11AM Date Signed: 08/22/2018 03:03 PM Electronically Signed By:LOPEZ Major
[2018-08-23] MEDS: THIAMINE HCL 500 MG in NS 100 ML IV SCH (06:33)
[2018-08-23] MEDS: NICOTINE 21 MG/24 HR PATCH TD SCH (08:49)
[2018-08-23] MEDS: ENOXAPARIN 40 MG/0.4 ML SYR SC SCH (08:49)
[2018-08-23] MEDS: FAMOTIDINE 20 MG/NACL 50 ML IV SCH (08:49)
[2018-08-23] MEDS: ACETAMINOPHEN 325 MG TAB PO PRN (09:09)
[2018-08-23 11:33] VITALS: BP 123/98
--- NOTE | 2018-08-23 11:44 | PDDCSUM ---
Discharge Summary Discharge Summary: 57-year-old male with past medical history of alcohol abuse dropped off by the local assisted for confusion and acute ETOH WD. He was admitted. CIWA was started. He is no longer needing benzo's. He has been evaluated by both PT and OT and he is safe for d/c to home. He will f/u with his PCP next week. Instructions were provided in German DDX #Acute alcohol withdrawal, improving #Acute metabolic Encephalopathy, resolved #Hypokalemia, replaced #Hypomagnesemia, replaced #WENDY: started iron supplements Exam: NAD AAOX3 RRR CTA B S/NT/ND MEDS: SEE MED REC TOTAL TIME SPENT ON D/C IS 35 MINS. D/W NURSING AND CM
--- NOTE | 2018-08-23 11:56 | ASMTCMCOM ---
CM Note CM Note Notes: Met with pt, he has been cleared by PT/OT for home. CM gave him letter stating [place] was [place] and a bus pass. Pt is aware he has an appointment on August 27 at [facility] in [place]. DC Plan: Independent Date Signed: 08/23/2018 11:55 AM Electronically Signed By:Nia Villalpando RN
[2018-08-23] MEDS ORDERED: THIAMINE HCL 100 MG TAB PO SCH (12:30)
[2018-08-24] MEDS ORDERED: THIAMINE HCL 100 MG TAB PO SCH (09:00)
== END 2018-08-23 14:15 | disposition home or self-care (01) | DRG 775 ==
LOC: F3E 16:42 → OBSVTOIN 08-21 11:59
PROVIDERS: ADMIT Internal Medicine; ATTEND Family Medicine
DX: F10.239 Alcohol dependence with withdrawal, unspecified (principal); G93.41 Metabolic encephalopathy; E87.6 Hypokalemia; E83.42 Hypomagnesemia; D50.9 Iron deficiency anemia, unspecified; I25.10 Atherosclerotic heart disease of native coronary artery without angina pectoris; I10 Essential (primary) hypertension; Z59.0 Homelessness; F17.210 Nicotine dependence, cigarettes, uncomplicated
CPT/HCPCS: 96374; 97116-GP; 97162-GP; 97165-GO; G0378; J1650; J2060; J2405; J3411; J3475; J3480